=== PATIENT | female | born 1940 | race Caucasian/White ===

== ENCOUNTER 2019-02-06 09:10 | Emergency (ER) | payer MEDICARE, MEDICAID ==
[~2019-02-06] VITALS: Ht 157.5 cm; Wt 63.5 kg
[~2019-02-06 09:10] MED LIST: HYDR25TA4 PO; METO-387 PO
--- NOTE | 2019-02-06 09:15 | NUR ---
Due to pt condition, unable to perform NIH.
--- OUTSIDE RECORDS SUMMARY | 2019-02-06 09:18 | XMS REPORT ---
Author Author MAIKEL SALTER [facility] Address [address] [place], [place] [id number] Care Team Providers Care Information Systems Auditor Name Role Phone MAIKEL SALTER PCP MAIKEL SALTER PreferredProvider Allergies and Adverse Reactions Name Reaction Notes SULFA (SULFONAMIDES) nausea Plan of Treatment Planned Activity Comments Planned Date Planned Time Plan/Goal Lipid Profile 04/05/2016 12:00 AM Chest PA and Lateral - Main 03/24/2017 12:00 AM Lipid Profile 04/05/2018 12:00 AM Chest PA and Lateral - Main 09/04/2018 12:00 AM Sinuses Limited - Main 09/04/2018 12:00 AM Medications Active Name Start Date Estimated Completion Date SIG Comments Calcium 600 + D(3) 600 mg(1,500mg) -200 unit oral tablet take 2 tablets by oral route daily pravastatin 20 mg oral tablet take 1 tablet (20 mg) by oral route once daily Toprol XL 25 mg oral tablet extended release 24 hr take 1 tablet (25 mg) by oral route once daily albuterol sulfate 1.25 mg/3 mL inhalation solution for nebulization 03/31/2017 inhale 3 milliliters (1.25 mg) via nebulizer by inhalation route 4 times per day DX J44.9 ipratropium-albuterol 0.5 mg-3 mg(2.5 mg base)/3 mL inhalation solution for nebulization 09/19/2017 inhale 3 milliliters by nebulization route 4 times per day for COPD Lasix 40 mg oral tablet 04/08/2018 take 1 tablet (40 mg) by oral route once daily Sudogest 30 mg oral tablet 07/27/2018 take 1-2 tablets by oral route every 6 hours as needed lisinopril 10 mg oral tablet 10/03/2018 TAKE 1 TABLET BY MOUTH ONCE DAILY hydrochlorothiazide 25 mg oral tablet 12/05/2018 TAKE 1 TABLET DAILY metoprolol succinate 25 mg oral tablet extended release 24 hr 12/05/2018 TAKE 1 TABLET DAILY Cozaar 50 mg oral tablet 01/22/2019 take 1 tablet (50 mg) by oral route once daily Name Start Date Expiration Date SIG Comments Singulair 10 mg oral tablet 04/17/2010 08/15/2010 take 1 tablet (10 mg) by oral route daily for 60 days Zithromax Z-Travon 250 mg oral tablet 05/06/2011 05/11/2011 take 2 tablets (500 mg) by oral route once daily for 1 day then 1 tablet (250 mg) by oral route once daily for 4 days Medrol (Travon) 4 mg oral tablets,dose pack 08/10/2011 08/16/2011 take as directed for 6 days Keflex 500 mg oral capsule 10/14/2011 10/24/2011 take 1 capsule by oral route 3 times a day for 10 days Cipro 500 mg oral tablet 02/02/2012 02/17/2012 take 1 tablet (500 mg) by oral route every 12 hours for 15 days benzonatate 100 mg oral capsule 10/05/2012 10/05/2012 take 1 capsule (100 mg) by oral route 3 times per day for cough Medrol (Travon) 4 mg oral tablets,dose pack 12/13/2012 12/13/2012 take as directed Zyrtec 10 mg oral tablet 12/13/2012 04/12/2013 take 1 tablet (10 mg) by oral route once daily for 30 days Flonase 50 mcg/actuation nasal spray,suspension 12/13/2012 12/08/2013 inhale 1 spray in each nostril by intranasal route 2 times per day for 30 days cephalexin 500 mg oral capsule 12/13/2012 12/13/2012 take 1 capsule (500 mg) by oral route every 8 hours promethazine-codeine 6.25-10 mg/5 mL oral syrup 02/28/2013 take 5 milliliters by oral route every 4 hours as needed, not to exceed 30 mL in 24 hours Zithromax Z-Travon 250 mg oral tablet 05/16/2013 05/21/2013 take 2 tablets (500 mg) by oral route once daily for 1 day then 1 tablet (250 mg) by oral route once daily for 4 days amoxicillin 500 mg oral capsule 08/20/2013 09/04/2013 take 1 capsule by oral route 3 times a day for 15 days lovastatin 20 mg oral tablet 08/20/2013 08/15/2014 take 1 tablet (20 mg) by oral route daily for 30 days Zithromax Z-Travon 250 mg oral tablet 12/26/2013 12/31/2013 take 2 tablets (500 mg) by oral route once daily for 1 day then 1 tablet (250 mg) by oral route once daily for 4 days Medrol (Travon) 4 mg oral tablets,dose pack 12/26/2013 take as directed amoxicillin 500 mg oral capsule 03/07/2014 take 1 capsule (500 mg) by oral route 3 times per day Levaquin 500 mg oral tablet 05/30/2014 06/09/2014 take 1 tablet (500 mg) by oral route once daily for 10 days prednisone 20 mg oral tablet 05/30/2014 06/07/2014 4x2 days 3x2 days 2x2 days 1x2 days Zithromax Z-Travon 250 mg oral tablet 07/18/2014 07/23/2014 take 2 tablets (500 mg) by oral route once daily for 1 day then 1 tablet (250 mg) by oral route once daily for 4 days Bactrim DS 800-160 mg oral tablet 08/29/2014 09/08/2014 take 1 tablet by oral route every 12 hours for 10 days Zithromax Z-Travon 250 mg oral tablet 06/20/2015 06/25/2015 take 2 tablets (500 mg) by oral route once daily for 1 day then 1 tablet (250 mg) by oral route once daily for 4 days Keflex 500 mg oral capsule 04/28/2016 05/05/2016 take 1 capsule by oral route 3 times a day for 7 days amoxicillin 500 mg oral capsule 05/18/2016 05/28/2016 take 1 capsule by oral route 3 times a day for 10 days Tessalon Perles 100 mg oral capsule 05/18/2016 take 1 capsule by oral route every 4 hours Zithromax Z-Travon 250 mg oral tablet 06/24/2016 06/29/2016 take 2 tablets (500 mg) by oral route once daily for 1 day then 1 tablet (250 mg) by oral route once daily for 4 days amoxicillin 500 mg oral tablet 07/20/2016 take 1 tablet (500 mg) by oral route 3 times per day amoxicillin 500 mg oral capsule 12/16/2016 12/26/2016 take 1 capsule (500 mg) by oral route 3 times per day for 10 days Bactrim DS 800-160 mg oral tablet 01/21/2017 01/31/2017 take 1 tablet by oral route 2 times a day for 10 days Levaquin 500 mg oral tablet 04/11/2017 04/21/2017 take 1 tablet (500 mg) by oral route once daily for 10 days amoxicillin 500 mg oral capsule 05/04/2017 take 1 capsule (500 mg) by oral route every 12 hours for 7 days Zithromax Z-Travon 250 mg oral tablet 08/12/2017 take 2 tablets (500 mg) by oral route once daily for 1 day then 1 tablet (250 mg) by oral route once daily for 4 days amoxicillin 500 mg oral tablet 08/30/2017 take 1 tablet (500 mg) by oral route every 12 hours for 10 days Cipro 500 mg oral tablet 09/19/2017 09/29/2017 take 1 tablet (500 mg) by oral route 2 times per day for 10 days Zithromax Z-Travon 250 mg oral tablet 11/29/2017 12/04/2017 take 2 tablets (500 mg) by oral route once daily for 1 day then 1 tablet (250 mg) by oral route once daily for 4 days Keflex 500 mg oral capsule 02/03/2018 02/10/2018 take 1 capsule (500 mg) by oral route every 12 hours for 7 days prednisone 20 mg oral tablet 02/16/2018 02/28/2018 2X4 days 1X4 days 1/2X4 days Levaquin 500 mg oral tablet 07/11/2018 07/18/2018 take 1 tablet (500 mg) by oral route once daily for 7 days Medrol (Travon) 4 mg oral tablets,dose pack 12/22/2018 12/27/2018 take as directed for 5 days amoxicillin 500 mg oral capsule 01/12/2019 01/22/2019 take 1 capsule (500 mg) by oral route 3 times per day for 10 days Discontinued Name Start Date Discontinued Date SIG Comments amoxicillin 500 mg oral capsule 06/24/2011 05/17/2012 take 1 capsule (500 mg) by oral route 3 times per day Anusol-HC 25 mg rectal suppository 07/02/2011 05/17/2012 insert 1 suppository (25 mg) by rectal route 2 times per day Proctofoam 1 % topical foam 07/02/2011 12/29/2016 apply by external route daily Aerochamber 10/01/2013 12/29/2016 Use with inhaler as directed hydrochlorothiazide 25 mg oral tablet 08/29/2014 07/07/2015 TAKE 1 TABLET DAILY promethazine-codeine 6.25-10 mg/5 mL oral syrup 06/24/2016 06/08/2017 take 5 milliliters by oral route every 6 hours as needed, not to exceed 30 mL in 24 hours prednisone 20 mg oral tablet 12/28/2016 06/08/2017 4 x 2 days, 3 x 2 days, 2 x 2 days 1 x 2 days Augmentin 875-125 mg oral tablet 01/18/2017 01/23/2017 take 1 tablet by oral route every 12 hours for 7 days Keflex 500 mg oral capsule 02/24/2017 04/14/2017 take 1 capsule (500 mg) by oral route every 12 hours Keflex 500 mg oral capsule 05/24/2017 08/31/2017 take 1 capsule (500 mg) by oral route every 12 hours for 10 days Symbicort 160-4.5 mcg/actuation inhalation HFA aerosol inhaler 06/08/2017 05/20/2018 inhale 2 puffs by inhalation route 2 times per day in the morning and evening Levaquin 500 mg oral tablet 08/19/2017 08/31/2017 take 1 tablet (500 mg) by oral route once daily for 10 days Bactrim DS 800-160 mg oral tablet 01/31/2018 02/03/2018 take 1 tablet by oral route every 12 hours for 10 days nausea Tessalon Perles 100 mg oral capsule 02/16/2018 05/20/2018 take 1 capsule (100 mg) by oral route 3 times per day as needed for cough Sudogest 30 mg oral tablet 02/16/2018 05/20/2018 take 1 tablets (60 mg) by oral route every 6 hours as needed fluticasone 50 mcg/actuation nasal spray,suspension 05/16/2018 01/31/2019 inhale 1 spray (50 mcg) in each nostril by intranasal route 2 times per day doxycycline hyclate 100 mg oral capsule 10/17/2018 01/31/2019 take 1 capsule (100 mg) by oral route 2 times per day Problem List Description Status Onset Chronic Obstructive Pulmonary Disease Active Hyperlipidemia Active Anxiety disorder Active 06/12/2013 Pain in joint; Hip Active 01/22/2014 Pulmonary nodule seen on imaging study Active 06/12/2014 Exercise hypoxemia Active 06/12/2014 Anxiety about health Active 10/24/2015 Primary osteoarthritis involving multiple joints Active 12/29/2016 Medication management Active 12/29/2016 Cellulitis of left lower extremity Active 01/23/2017 Dog bite of calf, left, sequela Active 01/23/2017 Peripheral edema Active 04/10/2018 Vital Signs Date Time BP-Sys(mm[Hg] BP-Cee(mm[Hg]) HR(bpm) RR(rpm) Temp WT HT HC BMI BSA BMI Percentile O2 Sat(%) 01/23/2019 11:23:00 AM 132 mmHg 80 mmHg 80 bpm 18 rpm 98.2 F 143 lbs 63 in 25.3311 kg/m 1.698 m 98 % 01/16/2019 11:25:00 AM 118 mmHg 74 mmHg 82 bpm 18 rpm 98.4 F 139 lbs 62 in 25.42 kg/m2 1.66 m2 98 % 11/14/2018 3:13:00 PM 136 mmHg 86 mmHg 110 bpm 20 rpm 98.1 F 144 lbs 62 in 26.3377 kg/m 1.6904 m 88 % 08/22/2018 3:30:00 PM 108 mmHg 72 mmHg 82 bpm 18 rpm 98.1 F 142 lbs 62 in 25.97 kg/m2 1.68 m2 89 % 06/20/2018 9:30:00 AM 154 mmHg 100 mmHg 108 bpm 20 rpm 98.1 F 145 lbs 62 in 26.5206 kg/m 1.6962 m 91 % 05/18/2018 9:00:00 AM 114 mmHg 74 mmHg 76 bpm 18 rpm 98.4 F 145 lbs 61 in 27.40 kg/m2 1.68 m2 97 % 04/04/2018 10:07:00 AM 124 mmHg 82 mmHg 86 bpm 18 rpm 98.2 F 149 lbs 61 in 28.15 kg/m2 1.71 m2 92 % 01/31/2018 10:48:00 AM 118 mmHg 80 mmHg 82 bpm 18 rpm 98.3 F 144 lbs 61 in 27.2083 kg/m 1.6767 m 93 % 01/03/2018 2:35:00 PM 120 mmHg 82 mmHg 106 bpm 20 rpm 98.2 F 142 lbs 62 in 25.97 kg/m2 1.68 m2 92 % 11/29/2017 3:28:00 PM 122 mmHg 68 mmHg 114 bpm 18 rpm 98.2 F 142 lbs 90 % 09/19/2017 1:35:00 PM 112 mmHg 74 mmHg 114 bpm 18 rpm 99.6 F 139 lbs 63 in 24.6225 kg/m 1.6741 m 98 % 08/30/2017 3:57:00 PM 128 mmHg 80 mmHg 78 bpm 18 rpm 98.4 F 148 lbs 90 % 06/07/2017 1:51:00 PM 132 mmHg 80 mmHg 82 bpm 16 rpm 98.2 F 145 lbs 62 in 26.52 kg/m2 1.70 m2 95 % 04/11/2017 3:29:00 PM 128 mmHg 80 mmHg 68 bpm 16 rpm 98 F 144 lbs 63 in 25.5082 kg/m 1.7039 m 93 % 02/01/2017 11:37:00 AM 118 mmHg 72 mmHg 96 bpm 16 rpm 97.4 F 141 lbs 63 in 24.98 kg/m2 1.69 m2 91 % 01/21/2017 8:55:00 AM 105 mmHg 60 mmHg 96 bpm 18 rpm 95.8 F 142 lbs 63 in 25.1539 kg/m 1.6921 m 95 % 01/18/2017 12:10:00 PM 122 mmHg 68 mmHg 76 bpm 18 rpm 98 F 143 lbs 63 in 25.33 kg/m2 1.70 m2 98 % 12/28/2016 4:03:00 PM 118 mmHg 64 mmHg 106 bpm 18 rpm 97.4 F 137 lbs 63 in 24.2682 kg/m 1.662 m 98 % 07/26/2016 12:11:00 PM 120 mmHg 84 mmHg 110 bpm 16 rpm 98.1 F 130 lbs 63 in 23.03 kg/m2 1.62 m2 90 % 06/24/2016 3:57:00 PM 148 mmHg 72 mmHg 88 bpm 16 rpm 98.2 F 132 lbs 63 in 23.3825 kg/m 1.6314 m 98 % 10/23/2015 2:12:00 PM 122 mmHg 60 mmHg 106 bpm 18 rpm 97 F 137 lbs 63 in 24.27 kg/m2 1.66 m2 93 % 07/29/2015 2:33:00 PM 120 mmHg 75 mmHg 102 bpm 16 rpm 98.2 F 137 lbs 63 in 24.2682 kg/m 1.662 m 94 % 06/09/2015 2:46:00 PM 130 mmHg 80 mmHg 96 bpm 16 rpm 97.9 F 141 lbs 66 in 22.76 kg/m2 1.73 m2 98 % 05/20/2015 9:37:00 AM 140 mmHg 78 mmHg 110 bpm 16 rpm 97.9 F 141 lbs 63 in 24.9768 kg/m 1.6861 m 95 % 06/11/2014 2:25:00 PM 132 mmHg 66 mmHg 92 bpm 24 rpm 97.5 F 147 lbs 63 in 26.04 kg/m2 1.72 m2 92 % 05/30/2014 9:45:00 AM 132 mmHg 64 mmHg 74 bpm 24 rpm 97.7 F 146 lbs 63 in 25.8625 kg/m 1.7157 m 92 % 01/17/2014 2:31:00 PM 136 mmHg 68 mmHg 90 bpm 22 rpm 98.2 F 148 lbs 63 in 26.22 kg/m2 1.73 m2 95 % 10/01/2013 3:19:00 PM 124 mmHg 70 mmHg 64 bpm 20 rpm 97.8 F 147 lbs 63 in 26.0396 kg/m 1.7216 m 95 % 06/11/2013 10:31:00 AM 140 mmHg 70 mmHg 92 bpm 24 rpm 97.8 F 143 lbs 63 in 25.33 kg/m2 1.70 m2 95 % 02/05/2013 2:51:00 PM 130 mmHg 78 mmHg 90 bpm 98.2 F 168 lbs 65 in 27.9564 kg/m 1.8694 m 02/05/2013 2:43:00 PM 110 mmHg 76 mmHg 103 bpm 96.6 F 137 lbs 63 in 24.27 kg/m2 1.66 m2 01/18/2013 9:50:00 AM 150 mmHg 66 mmHg 108 bpm 20 rpm 97.8 F 138 lbs 63 in 24.4454 kg/m 1.6681 m 94 % 06/08/2012 9:08:00 AM 110 mmHg 60 mmHg 88 bpm 18 rpm 97.5 F 142 lbs 63 in 25.15 kg/m2 1.69 m2 94 % 05/17/2012 9:33:00 AM 130 mmHg 60 mmHg 98 bpm 18 rpm 146 lbs 63 in 25.8625 kg/m 1.7157 m 95 % 09/16/2011 2:31:00 PM 116 mmHg 76 mmHg 88 bpm 140 lbs 63 in 24.80 kg/m2 1.68 m2 96 % 07/02/2011 10:02:00 AM 122 mmHg 80 mmHg 110 bpm 144 lbs 94 % 05/06/2011 2:58:00 PM 124 mmHg 84 mmHg 106 bpm 155 lbs 63 in 27.4567 kg/m 1.7678 m 96 % 01/18/2011 9:55:00 AM 114 mmHg 78 mmHg 92 bpm 146 lbs 95 % 01/15/2011 8:36:00 AM 116 mmHg 74 mmHg 90 bpm 146 lbs 96 % 06/18/2010 3:01:00 PM 132 mmHg 84 mmHg 102 bpm 149 lbs 94 % 03/09/2010 11:46:00 AM 124 mmHg 78 mmHg 104 bpm 151 lbs 94 % 02/10/2010 8:47:00 AM 116 mmHg 78 mmHg 103 bpm 151 lbs 95 % Social History Name Description Comments Alcohol Never Uses seatbelts Tobacco Never smoker History of Procedures Date Ordered Description Order Status 05/06/2011 12:00 AM THER/PROPH/DIAG INJ SC/IM Reviewed 05/06/2011 12:00 AM Decadron Inj.1mg-([facility]) [facility] #[id number] Reviewed 05/06/2011 12:00 AM Depo-Medrol 80 Mg Im/[facility] [id number] Reviewed 05/06/2011 12:00 AM Rocephin, Per 250MG - 1 Gram Vial [facility] [id number]-[facility] Reviewed 10/29/2011 12:00 AM ROUTINE VENIPUNCTURE Reviewed 10/29/2011 12:00 AM COMPLETE CBC W/AUTO DIFF WBC Reviewed 10/29/2011 12:00 AM COMPREHEN METABOLIC PANEL Reviewed 10/29/2011 12:00 AM ASSAY THYROID STIM HORMONE Reviewed 06/24/2016 12:00 AM Decadron, Per 1 Mg [facility]# [address]-35 Reviewed 06/24/2016 12:00 AM Depo-Medrol, Per 80 Mg [facility]#4803-0661-03 Reviewed 06/24/2016 12:00 AM Rocephin 1 gram [facility]#1840-6998-01 Reviewed 07/26/2016 12:00 AM THER/PROPH/DIAG INJ SC/IM Reviewed 07/26/2016 12:00 AM Decadron 8mg Injection, [facility] Medicare Reviewed 07/26/2016 12:00 AM Depo-Medrol 80mg Injection, [facility] Medicare Reviewed 07/26/2016 12:00 AM Rocephin 1 gram Injection, [facility] Medicare Reviewed 12/16/2016 12:00 AM COMPLETE CBC W/AUTO DIFF WBC Reviewed 12/16/2016 12:00 AM COMPREHEN METABOLIC PANEL Reviewed 12/16/2016 12:00 AM LIPID PANEL Reviewed 12/28/2016 12:00 AM THERAPEUTIC PROPHYLACTIC/DX INJECTION SUBQ/IM Reviewed 12/28/2016 12:00 AM Decadron 8mg Injection, [facility] Medicare Reviewed 12/28/2016 12:00 AM Depo-Medrol 80mg Injection, [facility] Medicare Reviewed 04/12/2017 12:00 AM LIPID PANEL Returned 04/11/2017 12:00 AM THERAPEUTIC PROPHYLACTIC/DX INJECTION SUBQ/IM Reviewed 04/11/2017 12:00 AM Decadron 8mg Injection, [facility] Reviewed 04/11/2017 12:00 AM Depo-Medrol 80mg Injection, [facility] Reviewed 05/17/2012 12:00 AM THER/PROPH/DIAG INJ SC/IM Reviewed 05/17/2012 12:00 AM Decadron, Per 1 Mg [facility]# [address]-50 Reviewed 05/17/2012 12:00 AM Depo-Medrol, Per 80 Mg [facility]#9213-4615-26 Reviewed 05/17/2012 12:00 AM Toradol 60 Mg [facility]#3111-6597-72 Reviewed 06/07/2017 12:00 AM THERAPEUTIC PROPHYLACTIC/DX INJECTION SUBQ/IM Reviewed 06/07/2017 12:00 AM Decadron 8mg Injection, [facility] Reviewed 06/07/2017 12:00 AM Depo-Medrol 80mg Injection, [facility] Medicare Reviewed 08/30/2017 12:00 AM THERAPEUTIC PROPHYLACTIC/DX INJECTION SUBQ/IM Reviewed 08/30/2017 12:00 AM Rocephin 1 gram Injection, [facility] Reviewed 09/19/2017 12:00 AM THERAPEUTIC PROPHYLACTIC/DX INJECTION SUBQ/IM Reviewed 09/19/2017 12:00 AM Decadron 8mg Injection, [facility] Reviewed 09/19/2017 12:00 AM Depo-Medrol 80mg Injection, [facility] Reviewed 09/19/2017 12:00 AM Rocephin 1 gram Injection, [facility] Medicare Reviewed 04/05/2018 12:00 AM COMPLETE CBC W/AUTO DIFF WBC Returned 04/05/2018 12:00 AM COMPREHEN METABOLIC PANEL Returned 04/05/2018 12:00 AM ELECTROCARDIOGRAM TRACING Reviewed 01/18/2013 12:00 AM THER/PROPH/DIAG INJ SC/IM Reviewed 01/18/2013 12:00 AM Decadron, Per 1 Mg [facility]# [address]-06 Reviewed 01/18/2013 12:00 AM Depo-Medrol, Per 80 Mg [facility]#8111-2682-51 Reviewed 01/18/2013 12:00 AM Toradol 60 Mg [facility]#5958-0157-80 Reviewed 08/22/2018 12:00 AM THERAPEUTIC PROPHYLACTIC/DX INJECTION SUBQ/IM Reviewed 08/22/2018 12:00 AM Decadron 8mg Injection, [facility] Reviewed 08/22/2018 12:00 AM Depo-Medrol 80mg Injection, [facility] Medicare Reviewed 11/14/2018 12:00 AM THERAPEUTIC PROPHYLACTIC/DX INJECTION SUBQ/IM Reviewed 11/14/2018 12:00 AM Decadron 8mg Injection, [facility] Medicare Reviewed 11/14/2018 12:00 AM Rocephin 1 gram Injection, [facility] Medicare Reviewed 01/30/2019 12:00 AM LIPID PANEL Returned 01/23/2019 12:00 AM THERAPEUTIC PROPHYLACTIC/DX INJECTION SUBQ/IM Reviewed 01/23/2019 12:00 AM Decadron 8mg Injection, [facility] Medicare Reviewed 02/10/2010 12:00 AM ROUTINE VENIPUNCTURE Reviewed 02/10/2010 12:00 AM COMPLETE CBC W/AUTO DIFF WBC Reviewed 02/10/2010 12:00 AM COMPREHEN METABOLIC PANEL Reviewed 02/10/2010 12:00 AM LIPID PANEL Reviewed 06/11/2014 12:00 AM CHEST X-RAY 4/> VIEWS Reviewed 01/15/2011 12:00 AM ROUTINE VENIPUNCTURE Reviewed 01/15/2011 12:00 AM COMPLETE CBC AUTOMATED Reviewed 01/15/2011 12:00 AM COMPREHEN METABOLIC PANEL Reviewed 01/15/2011 12:00 AM LIPID PANEL Reviewed 01/18/2011 12:00 AM THER/PROPH/DIAG INJ SC/IM Reviewed 01/18/2011 12:00 AM Decadron Inj.8mg-([facility]) [facility] #[id number] Reviewed 01/18/2011 12:00 AM Depo-Medrol 80 Mg Im/[facility] [id number] Reviewed Results Summary Date and Description Results 01/15/2011 1:53 PM TRIGLYCERIDES 155.0 mg/dLCHOLESTEROL 248.0 mg/dLHDL 51.0 mg/dLTOT CHOL/HDL 4.9 LDL 168.0 mg/dLGLUCOSE 97.0 mg/dLSODIUM 139.0 mmol/LPOTASSIUM 3.70 mmol/LCHLORIDE 101.0 mmol/LCO2 27.0 mmol/LBUN 19.0 mg/dLCREATININE 0.90 mg/dLSGOT/AST 19.0 IU/LSGPT/ALT 11.0 IU/LALK PHOS 111.0 IU/LTOTAL PROTEIN 7.40 g/dLALBUMIN 4.20 g/dLTOTAL BILI 0.50 mg/dLCALCIUM 9.50 mg/dLAGE 70 GFR NonAA 62 GFR AA 75 eGFR >60 mL/min/1.73 m2eGFR AA* >60 History Of Immunizations Not available. History of Past Illness Name Date of Onset Comments Chronic Obstructive Pulmonary Disease Hyperlipidemia Cough Feb 10 2010 8:49AM General Medical Exam, Adult Feb 10 2010 8:49AM Seasonal Allergies Feb 10 2010 8:49AM Sinusitis, Chronic Feb 10 2010 8:49AM Ganglion cyst of synovium, tendon, and bursa; other Mar 09 2010 11:48AM Anxiety disorder 06/12/2013 Pain in joint; Hip 01/22/2014 Pulmonary nodule seen on imaging study 06/12/2014 Exercise hypoxemia 06/12/2014 Chronic Obstructive Pulmonary Disease Jun 18 2010 3:02PM Edema Jun 18 2010 3:02PM Sinusitis, Acute Jun 18 2010 3:02PM Anxiety about health 10/24/2015 Chronic Obstructive Pulmonary Disease Jan 15 2011 8:38AM Palpitations Jan 15 2011 8:38AM Cough Jan 18 2011 9:54AM Sinusitis, Acute Jan 18 2011 9:54AM Seasonal Allergies Jan 18 2011 9:54AM Post-nasal drainage Jan 18 2011 9:54AM Primary osteoarthritis involving multiple joints 12/29/2016 Medication management 12/29/2016 Cellulitis of left lower extremity 01/23/2017 Dog bite of calf, left, sequela 01/23/2017 Cough May 06 2011 2:55PM Seasonal Allergies May 06 2011 2:55PM Pharyngitis, Acute May 06 2011 2:55PM Post-nasal drainage May 06 2011 2:55PM Peripheral edema 04/10/2018 Blood In Stool, Occult Jul 02 2011 9:58AM Hemorrhoids Jul 02 2011 9:58AM Chronic Obstructive Pulmonary Disease Fe2011 2:33PM Cardiac Dysrhythmia Sep 16 2011 2:33PM Sinoatrial Node Dysfunction Oct 29 2011 9:12AM Palpitations Oct 29 2011 9:12AM Osteoarthrosis, generalized, multiple sites May 17 2012 9:34AM Pain in joint; Hip May 17 2012 9:34AM Osteoarthrosis Jun 08 2012 9:09AM Bronchitis, Acute Jun 08 2012 9:09AM Cough Jun 08 2012 9:09AM Pain in joint; Left Hip Jun 08 2012 9:09AM Pain in joint; Hip Jan 18 2013 9:50AM Osteoarthrosis, generalized, multiple sites Feb 05 2013 2:45PM Pain in joint; Hip bilateral Feb 05 2013 2:45PM Anxiety Disorder Jun 11 2013 10:32AM Chronic Obstructive Pulmonary Disease Jun 11 2013 10:32AM Hyperlipidemia Jun 11 2013 10:32AM Pain in joint; Left Hip Jun 11 2013 10:32AM Sinusitis, Acute Jun 11 2013 10:32AM Essential Hypertension Oct 01 2013 3:19PM Osteoarthrosis, generalized, multiple sites Oct 01 2013 3:19PM Chronic Obstructive Pulmonary Disease Oct 01 2013 3:19PM Pain in joint; Hip Oct 01 2013 3:19PM Chronic Obstructive Pulmonary Disease Jan 17 2014 2:31PM Pain in joint; Hip Jan 17 2014 2:31PM pre-operative examination, unspecified Jan 17 2014 2:31PM Lung nodule seen on imaging study Jun 11 2014 10:24AM Bronchitis, Acute May 30 2014 9:45AM Respiratory System And Chest Symptoms May 30 2014 9:45AM COPD (chronic obstructive pulmonary disease) May 30 2014 9:45AM Chronic Obstructive Pulmonary Disease Jun 11 2014 2:26PM Pulmonary nodule seen on imaging study Jun 11 2014 2:26PM Shortness of breath Jun 11 2014 2:26PM Exercise hypoxemia Jun 11 2014 2:26PM Nail avulsion May 20 2015 9:38AM Contusion of left index finger with damage to nail, initial encounter Jun 09 2015 2:53PM Forehead contusion, subsequent encounter Jul 29 2015 2:39PM Generalized anxiety disorder Jul 29 2015 2:39PM Chronic Obstructive Pulmonary Disease Jul 29 2015 2:39PM Osteoarthrosis, generalized, multiple sites Oct 23 2015 2:12PM Pain of right thigh Oct 23 2015 2:12PM Mild Acute Hip pain, acute, right Improving Oct 23 2015 2:12PM Anxiety about health Oct 23 2015 2:12PM Hyperlipidemia Apr 05 2016 10:58AM Sinoatrial Node Dysfunction Apr 05 2016 10:58AM Palpitations Apr 05 2016 10:58AM Chronic Obstructive Pulmonary Disease Apr 05 2016 10:58AM Exercise hypoxemia Apr 05 2016 10:58AM Pain in joint; Hip Apr 05 2016 10:58AM Pulmonary nodule seen on imaging study Apr 05 2016 10:58AM Eustachian tube dysfunction, bilateral Jun 24 2016 3:57PM Moderate Acute Cough Jun 24 2016 3:57PM Pharyngitis, Acute Jun 24 2016 3:57PM Upper Respiratory Infection Jun 24 2016 3:57PM COPD (chronic obstructive pulmonary disease) with acute bronchitis Jun 24 2016 3:57PM Mild Chronic Cough Worsening Jul 26 2016 12:12PM Recurrent COPD (chronic obstructive pulmonary disease) with acute bronchitis Jul 26 2016 12:12PM Moderate Shortness of breath on exertion Jul 26 2016 12:12PM Hyperlipidemia Dec 16 2016 10:27AM Sinoatrial Node Dysfunction Dec 16 2016 10:27AM Palpitations Dec 16 2016 10:27AM Chronic Obstructive Pulmonary Disease Dec 16 2016 10:27AM Exercise hypoxemia Dec 16 2016 10:27AM Pain in joint; Hip Dec 16 2016 10:27AM Pulmonary nodule seen on imaging study Dec 16 2016 10:27AM Chest congestion Dec 28 2016 4:04PM COPD (chronic obstructive pulmonary disease) with acute bronchitis Dec 28 2016 4:04PM Productive cough Dec 28 2016 4:04PM Anxiety about health Dec 28 2016 4:04PM Chronic obstructive pulmonary disease, unspecified COPD type Dec 28 2016 4:04PM Exercise hypoxemia Dec 28 2016 4:04PM Mixed hyperlipidemia Dec 28 2016 4:04PM Medication management Dec 28 2016 4:04PM Primary osteoarthritis involving multiple joints Dec 28 2016 4:04PM Cellulitis of left lower extremity Jan 18 2017 12:10PM Bitten by dog, initial encounter Jan 18 2017 12:10PM Cellulitis of left lower extremity Jan 21 2017 8:56AM Open bite, left lower leg, sequela Jan 21 2017 8:56AM Bitten by dog, sequela Jan 21 2017 8:56AM Medication management Jan 21 2017 8:56AM Cellulitis of left lower extremity Feb 01 2017 11:38AM Open bite, left lower leg, subsequent encounter Feb 01 2017 11:38AM Bitten by dog, subsequent encounter Feb 01 2017 11:38AM Medication management Feb 01 2017 11:38AM Cough Mar 24 2017 4:09PM Abnormal chest xray Mar 24 2017 4:09PM Hyperlipidemia Apr 12 2017 9:02AM Sinoatrial Node Dysfunction Apr 12 2017 9:02AM Palpitations Apr 12 2017 9:02AM Chronic Obstructive Pulmonary Disease Apr 12 2017 9:02AM Exercise hypoxemia Apr 12 2017 9:02AM Pain in joint; Hip Apr 12 2017 9:02AM Pulmonary nodule seen on imaging study Apr 12 2017 9:02AM Eustachian tube dysfunction, bilateral Apr 11 2017 3:30PM Purulent postnasal drainage Apr 11 2017 3:30PM Chest congestion Apr 11 2017 3:30PM Upper respiratory tract infection, unspecified type Apr 11 2017 3:30PM Moderate Acute Sinus pressure Apr 11 2017 3:30PM COPD (chronic obstructive pulmonary disease) with acute bronchitis Apr 11 2017 3:30PM Moderate Chronic Purulent postnasal drainage Jun 07 2017 1:52PM Mild Chronic Sinus pressure Jun 07 2017 1:52PM Moderate Chronic Acute seasonal allergic rhinitis, unspecified trigger Stable Jun 07 2017 1:52PM Mild Acute Labyrinthitis Jun 07 2017 1:52PM Moderate Acute Vertigo Jun 07 2017 1:52PM Purulent postnasal drainage Aug 30 2017 3:58PM Upper respiratory tract infection, unspecified type Aug 30 2017 3:58PM Mild Acute Left Enlarged lymph node in neck Aug 30 2017 3:58PM Cough Sep 19 2017 1:36PM Moderate Acute Recurrent Chest congestion Sep 19 2017 1:36PM COPD exacerbation Sep 19 2017 1:36PM Chronic obstructive pulmonary disease with acute lower respiratory infection Sep 19 2017 1:36PM Acute bronchitis, unspecified Sep 19 2017 1:36PM Cough Nov 29 2017 3:29PM Acute pharyngitis, unspecified etiology Nov 29 2017 3:29PM Chest congestion Nov 29 2017 3:29PM COPD (chronic obstructive pulmonary disease) Nov 29 2017 3:29PM Cellulitis of left lower extremity Jan 03 2018 2:35PM Cellulitis of left lower extremity Jan 31 2018 10:48AM Peripheral edema Jan 31 2018 10:48AM Hyperlipidemia Apr 05 2018 10:03AM Sinoatrial Node Dysfunction Apr 05 2018 10:03AM Palpitations Apr 05 2018 10:03AM Chronic Obstructive Pulmonary Disease Apr 05 2018 10:03AM Exercise hypoxemia Apr 05 2018 10:03AM Pain in joint; Hip Apr 05 2018 10:03AM Pulmonary nodule seen on imaging study Apr 05 2018 10:03AM Exercise Counseling Apr 04 2018 10:08AM Moderate Acute Bilateral Peripheral edema Apr 04 2018 10:08AM Chronic obstructive pulmonary disease, unspecified COPD type Apr 04 2018 10:08AM Medication management Apr 04 2018 10:08AM Acute nasopharyngitis (common cold) May 18 2018 9:03AM Purulent postnasal drainage May 18 2018 9:03AM Ear pain, right May 18 2018 9:03AM Essential hypertension Jun 20 2018 9:31AM Ear pain, bilateral Jun 20 2018 9:31AM Purulent postnasal drainage Aug 22 2018 3:35PM Chest congestion Aug 22 2018 3:35PM Upper respiratory tract infection, unspecified type Aug 22 2018 3:35PM Sinus pressure Aug 22 2018 3:35PM Chronic obstructive pulmonary disease with acute lower respiratory infection Aug 22 2018 3:35PM Acute bronchitis, unspecified Aug 22 2018 3:35PM Cough Sep 04 2018 4:44PM Sinus pressure Sep 04 2018 4:44PM Chest congestion Nov 14 2018 3:15PM Upper respiratory tract infection, unspecified type Nov 14 2018 3:15PM COPD exacerbation Nov 14 2018 3:15PM Essential hypertension Jan 16 2019 11:26AM COPD exacerbation Jan 16 2019 11:26AM Medication management Jan 16 2019 11:26AM Hyperlipidemia Jan 30 2019 8:55AM Sinoatrial Node Dysfunction Jan 30 2019 8:55AM Palpitations Jan 30 2019 8:55AM Chronic Obstructive Pulmonary Disease Jan 30 2019 8:55AM Exercise hypoxemia Jan 30 2019 8:55AM Pain in joint; Hip Jan 30 2019 8:55AM Pulmonary nodule seen on imaging study Jan 30 2019 8:55AM Dizziness on standing Jan 16 2019 11:26AM Dysfunction of both eustachian tubes Jan 23 2019 11:24AM Nasal congestion with rhinorrhea Jan 23 2019 11:24AM Purulent postnasal drainage Jan 23 2019 11:24AM Payers Insurance Name Company Name Plan Name Plan Number Policy Number Policy Group Number Start Date Medicare [facility] Medicare [facility] [id number] N/A [place] Prog [id number] N/A zzzTest Medicare A Test Medicare A [id number] N/A [facility] Comm [id number] N/A Medicare Part A Medicare - Lab/Xray [id number] N/A [facility] Asst Prog - R[facility] [place] [employer] Pro[place] - C [id number] N/A Medicare Part A Medicare Part A [id number] N/A Medicare Part B Medicare Of [place] [id number] N/A History of Encounters Visit Date Visit Type Provider 01/30/2019 Laboratory MAIKEL SALTER PA 01/23/2019 Office visit MAIKEL SALTER PA 01/16/2019 Office visit MAIKEL SALTER PA 11/14/2018 Office visit MAIKEL SALTER PA 08/22/2018 Office visit MAIKEL SALTER PA 06/20/2018 Office visit MAIKEL SALTER PA 05/16/2018 Office visit MAIKEL SALTER PA 04/04/2018 Office visit MAIKEL SALTER PA 01/31/2018 Office visit MAIKEL SALTER PA 01/03/2018 Office visit MAIKEL SALTER PA 11/29/2017 Office visit MAIKEL SALTER PA 09/19/2017 Office visit MAIKEL SALTER PA 08/30/2017 Office visit MAIKEL SALTER PA 06/07/2017 Office visit MAIKEL SALTER PA 04/12/2017 Voided MAIKEL SALTER PA 04/11/2017 Office visit MAIKEL SALTER PA 02/01/2017 Office visit MAIKEL SALTER PA 01/21/2017 Office visit MAIKEL SALTER PA 01/18/2017 Office visit MAIKEL SALTER PA 12/28/2016 Office visit MAIKEL SALTER PA 07/26/2016 Office visit MAIKEL SALTER PA 06/24/2016 Office visit MAIKEL SALTER PA 10/23/2015 Office visit MAIKEL SALTER PA 07/29/2015 Office visit MAIKEL SALTER PA 06/09/2015 Office visit MAIKEL SALTER PA 05/20/2015 Office visit MAIKEL SALTER PA 06/11/2014 Office visit MAIKEL SALTER PA 05/30/2014 Office visit MAIKEL SALTER PA 01/17/2014 Office visit MAIKEL SALTER PA 12/03/2013 Fernando Seth MD 10/01/2013 Office visit MAIKEL SALTER PA 06/11/2013 Office visit MAIKEL SALTER PA 05/28/2013 [facility] Melissa Seth MD 02/05/2013 Office visit MAIKEL SALTER PA 01/18/2013 Office visit MAIKEL SALTER PA 06/08/2012 Office visit MAIKEL SALTER PA 05/17/2012 Office visit MAIKEL ASLTER PA 10/29/2011 Office visit MAIKEL SALTER PA 09/16/2011 Office visit MAIKEL SALTER PA 09/16/2011 [facility] Melissa Seth MD 07/02/2011 Office visit MAIKEL SALTER PA 05/06/2011 Office visit Maikel Salter PA-C 01/18/2011 Office visit Maikel Salter PA-C 01/15/2011 Office visit Maikel Salter PA-C 06/18/2010 Office visit Maikel Salter PA-C 03/09/2010 Office visit Maikel Salter PA-C 02/10/2010 Office visit Maikel Salter PA-C
--- OUTSIDE RECORDS SUMMARY | 2019-02-06 09:19 | XMS REPORT ---
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 Phone MAIKEL SALTER PCP MAIKEL [...] SC/IM Reviewed 05/06/2011 12:00 AM Decadron Inj.1mg-([facility]) [facility] #[id number] Reviewed 05/06/2011 12:00 AM Depo-Medrol 80 Mg Im/[facility] [id number] Reviewed 05/06/2011 12:00 AM Rocephin, Per 250MG - 1 Gram Vial [facility] [id number]-[facility] Reviewed 10/29/2011 12:00 AM ROUTINE VENIPUNCTURE Reviewed 10/29/2011 12:00 AM COMPLETE CBC W/AUTO DIFF WBC Reviewed 10/29/2011 12:00 AM COMPREHEN METABOLIC PANEL Reviewed 10/29/2011 12:00 AM ASSAY THYROID STIM HORMONE Reviewed 06/24/2016 12:00 AM Decadron, Per 1 Mg [facility]# [address]-08 Reviewed 06/24/2016 12:00 AM Depo-Medrol, Per 80 Mg [facility]#1668-5077-15 Reviewed 06/24/2016 12:00 AM Rocephin 1 gram [facility]#2747-1005-28 Reviewed 07/26/2016 12:00 AM THER/PROPH/DIAG INJ SC/IM Reviewed 07/26/2016 12:00 AM Decadron 8mg Injection, [facility] Medicare Reviewed 07/26/2016 12:00 AM Depo-Medrol 80mg Injection, [facility] Medicare Reviewed 07/26/2016 12:00 AM Rocephin 1 gram Injection, [facility] Medicare Reviewed 12/16/2016 12:00 AM COMPLETE CBC W/AUTO DIFF WBC Reviewed 12/16/2016 12:00 AM COMPREHEN METABOLIC PANEL Reviewed 12/16/2016 12:00 AM LIPID PANEL Reviewed 12/28/2016 12:00 AM THERAPEUTIC PROPHYLACTIC/DX INJECTION SUBQ/IM Reviewed 12/28/2016 12:00 AM Decadron 8mg Injection, [facility] Medicare Reviewed 12/28/2016 12:00 AM Depo-Medrol 80mg Injection, [facility] Medicare Reviewed 04/12/2017 12:00 AM LIPID PANEL Returned 04/11/2017 12:00 AM THERAPEUTIC PROPHYLACTIC/DX INJECTION SUBQ/IM Reviewed 04/11/2017 12:00 AM Decadron 8mg Injection, [facility] Medicare Reviewed 04/11/2017 12:00 AM Depo-Medrol 80mg Injection, [facility] Medicare Reviewed 05/17/2012 12:00 AM THER/PROPH/DIAG INJ SC/IM Reviewed 05/17/2012 12:00 AM Decadron, Per 1 Mg [facility]# [address]-75 Reviewed 05/17/2012 12:00 AM Depo-Medrol, Per 80 Mg [facility]#3899-6501-18 Reviewed 05/17/2012 12:00 AM Toradol 60 Mg [facility]#5468-3608-09 Reviewed 06/07/2017 12:00 AM THERAPEUTIC PROPHYLACTIC/DX INJECTION SUBQ/IM Reviewed 06/07/2017 12:00 AM Decadron 8mg Injection, [facility] Medicare Reviewed 06/07/2017 12:00 AM Depo-Medrol 80mg Injection, [facility] Medicare Reviewed 08/30/2017 12:00 AM THERAPEUTIC PROPHYLACTIC/DX INJECTION SUBQ/IM Reviewed 08/30/2017 12:00 AM Rocephin 1 gram Injection, [facility] Medicare Reviewed 09/19/2017 12:00 AM THERAPEUTIC PROPHYLACTIC/DX INJECTION SUBQ/IM Reviewed 09/19/2017 12:00 AM Decadron 8mg Injection, [facility] Medicare Reviewed 09/19/2017 12:00 AM Depo-Medrol 80mg Injection, [facility] Medicare Reviewed 09/19/2017 12:00 AM Rocephin 1 gram Injection, [facility] Medicare Reviewed 04/05/2018 12:00 AM COMPLETE CBC W/AUTO DIFF WBC Returned 04/05/2018 12:00 AM COMPREHEN METABOLIC PANEL Returned 04/05/2018 12:00 AM ELECTROCARDIOGRAM TRACING Reviewed 01/18/2013 12:00 AM THER/PROPH/DIAG INJ SC/IM Reviewed 01/18/2013 12:00 AM Decadron, Per 1 Mg [facility]# [address]-29 Reviewed 01/18/2013 12:00 AM Depo-Medrol, Per 80 Mg [facility]#2621-3262-35 Reviewed 01/18/2013 12:00 AM Toradol 60 Mg [facility]#6328-7537-64 Reviewed 08/22/2018 12:00 AM THERAPEUTIC PROPHYLACTIC/DX INJECTION SUBQ/IM Reviewed 08/22/2018 12:00 AM Decadron 8mg Injection, [facility] Medicare Reviewed 08/22/2018 12:00 AM Depo-Medrol 80mg Injection, [facility] Medicare Reviewed 11/14/2018 12:00 AM THERAPEUTIC PROPHYLACTIC/DX INJECTION SUBQ/IM Reviewed 11/14/2018 12:00 AM Decadron 8mg Injection, [facility] Medicare Reviewed 11/14/2018 12:00 AM Rocephin 1 gram Injection, [facility] Medicare Reviewed 01/23/2019 12:00 AM THERAPEUTIC PROPHYLACTIC/DX INJECTION SUBQ/IM Reviewed 01/23/2019 12:00 AM Decadron 8mg Injection, [facility] Medicare Reviewed 01/30/2019 12:00 AM LIPID PANEL Returned 02/10/2010 12:00 AM ROUTINE VENIPUNCTURE Reviewed 02/10/2010 [...] INJ SC/IM Reviewed 01/18/2011 12:00 AM Decadron Inj.8mg-([facility]) [facility] #[id number] Reviewed 01/18/2011 12:00 AM Depo-Medrol 80 Mg Im/[facility] [id number] Reviewed Results Summary Date and Description Results [...] Dizziness on standing Jan 16 2019 11:26AM Payers Insurance Name Company Name Plan Name Plan Number Policy Number Policy Group Number Start Date Medicare RHC Medicare RHC [id number] N/A [place] Prog [id number] N/A zzzTest Medicare A Test Medicare A [id number] N/A [facility] Comm [id number] N/A Medicare Part A Medicare - Lab/Xray [id number] N/A [place] [facility]ight[facility] [id number] N/A Medicare Part A Medicare Part A [id number] N/A Medicare Part B Medicare Of [place] [id number] N/A History of Encounters Visit Date Visit Type Provider 01/30/2019 Laboratory MAIKEL HASSAN 01/23/2019 Office visit MAIKEL SALTER PA 01/16/2019 [...] MAIKEL SALTER PA 01/18/2017 Office visit MAIKEL SATLER PA 12/28/2016 Office visit MAIKEL SALTER PA 07/26/2016 Office visit MAIKEL SALTER PA 06/24/2016 Office visit MAIKEL SALTER PA 10/23/2015 Office visit MAIKEL SALTER PA 07/29/2015 Office visit MAIKEL SALTER PA 06/09/2015 Office visit MAIKEL SALTER PA 05/20/2015 Office visit MAIKEL SALTER PA 06/11/2014 Office visit MAIKEL SALTER PA 05/30/2014 Office visit MAIKEL SALTER PA 01/17/2014 Office visit MAIKEL SALTER PA 12/03/2013 [facility] Melissa Seth MD 10/01/2013 Office visit MAIKEL SALTER PA 06/11/2013 Office visit MAIKEL SALTER PA 05/28/2013 [facility] Melissa Seth MD 02/05/2013 Office visit MAIKEL SALTER PA 01/18/2013 Office visit MAIKEL SALTER PA 06/08/2012 Office visit MAIKEL SALTER PA 05/17/2012 Office visit MAIKEL SALTER PA 10/29/2011 Office visit MAIKEL SALTER PA 09/16/2011 Office visit MAIKEL SALTER PA 09/16/2011 [facility] Melissa Seth MD 07/02/2011 Office visit MAIKEL SALTER PA 05/06/2011 Office visit Maikel Salter PA-C 01/18/2011 Office visit Maikel Salter PA-C 01/15/2011 Office visit Maikel Salter PA-C 06/18/2010 Office visit Maikel Salter PA-C 03/09/2010 Office visit Maikel Salter PA-C 02/10/2010 Office visit Maikel Salter PA-C
--- OUTSIDE RECORDS SUMMARY | 2019-02-06 09:21 | XMS REPORT ---
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 Role Phone MAIKEL SALTER PCP MAIKEL [...] Sinuses Limited - Main 09/04/2018 12:00 AM Lipid Profile 01/30/2019 12:00 AM Medications Active Name Start Date [...] (40 mg) by oral route once daily fluticasone 50 mcg/actuation nasal spray,suspension 05/16/2018 inhale 1 spray (50 mcg) in each nostril by intranasal route 2 times per day Sudogest 30 mg oral tablet 07/27/2018 take 1-2 tablets by oral route every 6 hours as needed lisinopril 10 mg oral tablet 10/03/2018 TAKE 1 TABLET BY MOUTH ONCE DAILY doxycycline hyclate 100 mg oral capsule 10/17/2018 take 1 capsule (100 mg) by oral route 2 times per day hydrochlorothiazide 25 mg oral tablet 12/05/2018 TAKE [...] oral route every 6 hours as needed Problem List Description Status Onset Chronic Obstructive [...] SC/IM Reviewed 05/06/2011 12:00 AM Decadron Inj.1mg-([facility]) [facility] #[id number] Reviewed 05/06/2011 12:00 AM Depo-Medrol 80 Mg Im/[facility] [id number] Reviewed 05/06/2011 12:00 AM Rocephin, Per 250MG - 1 Gram Vial [facility] [id number]-[facility] Reviewed 10/29/2011 12:00 AM ROUTINE VENIPUNCTURE Reviewed 10/29/2011 12:00 AM COMPLETE CBC W/AUTO DIFF WBC Reviewed 10/29/2011 12:00 AM COMPREHEN METABOLIC PANEL Reviewed 10/29/2011 12:00 AM ASSAY THYROID STIM HORMONE Reviewed 06/24/2016 12:00 AM Decadron, Per 1 Mg [facility]# [address]-39 Reviewed 06/24/2016 12:00 AM Depo-Medrol, Per 80 Mg [facility]#9653-6397-79 Reviewed 06/24/2016 12:00 AM Rocephin 1 gram [facility]#[id number] Reviewed 07/26/2016 12:00 AM THER/PROPH/DIAG INJ SC/IM Reviewed 07/26/2016 12:00 AM Decadron 8mg Injection, [facility] Medicare Reviewed 07/26/2016 12:00 AM Depo-Medrol 80mg Injection, [facility] Medicare Reviewed 07/26/2016 12:00 AM Rocephin 1 gram Injection, [facility] Medicare Reviewed 12/16/2016 12:00 AM COMPLETE CBC W/AUTO DIFF WBC Reviewed 12/16/2016 12:00 AM COMPREHEN METABOLIC PANEL Reviewed 12/16/2016 12:00 AM LIPID PANEL Reviewed 12/28/2016 12:00 AM THERAPEUTIC PROPHYLACTIC/DX INJECTION SUBQ/IM Reviewed 12/28/2016 12:00 AM Decadron 8mg Injection, [facility] Medicare Reviewed 12/28/2016 12:00 AM Depo-Medrol 80mg Injection, [facility] Medicare Reviewed 04/12/2017 12:00 AM LIPID PANEL Returned 04/11/2017 12:00 AM THERAPEUTIC PROPHYLACTIC/DX INJECTION SUBQ/IM Reviewed 04/11/2017 12:00 AM Decadron 8mg Injection, [facility] Medicare Reviewed 04/11/2017 12:00 AM Depo-Medrol 80mg Injection, [facility] Medicare Reviewed 05/17/2012 12:00 AM THER/PROPH/DIAG INJ SC/IM Reviewed 05/17/2012 12:00 AM Decadron, Per 1 Mg [facility]# [id number] Reviewed 05/17/2012 12:00 AM Depo-Medrol, Per 80 Mg [facility]#[id number] Reviewed 05/17/2012 12:00 AM Toradol 60 Mg [facility]#[id number] Reviewed 06/07/2017 12:00 AM THERAPEUTIC PROPHYLACTIC/DX INJECTION SUBQ/IM Reviewed 06/07/2017 12:00 AM Decadron 8mg Injection, [facility] Medicare Reviewed 06/07/2017 12:00 AM Depo-Medrol 80mg Injection, [facility] Medicare Reviewed 08/30/2017 12:00 AM THERAPEUTIC PROPHYLACTIC/DX INJECTION SUBQ/IM Reviewed 08/30/2017 12:00 AM Rocephin 1 gram Injection, [facility] Medicare Reviewed 09/19/2017 12:00 AM THERAPEUTIC PROPHYLACTIC/DX INJECTION SUBQ/IM Reviewed 09/19/2017 12:00 AM Decadron 8mg Injection, [facility] Medicare Reviewed 09/19/2017 12:00 AM Depo-Medrol 80mg Injection, [facility] Medicare Reviewed 09/19/2017 12:00 AM Rocephin 1 gram Injection, [facility] Medicare Reviewed 04/05/2018 12:00 AM COMPLETE CBC W/AUTO DIFF WBC Returned 04/05/2018 12:00 AM COMPREHEN METABOLIC PANEL Returned 04/05/2018 12:00 AM ELECTROCARDIOGRAM TRACING Reviewed 01/18/2013 12:00 AM THER/PROPH/DIAG INJ SC/IM Reviewed 01/18/2013 12:00 AM Decadron, Per 1 Mg [facility]# [address]-83 Reviewed 01/18/2013 12:00 AM Depo-Medrol, Per 80 Mg [facility]#7659-5322-24 Reviewed 01/18/2013 12:00 AM Toradol 60 Mg [facility]#2122-1425-66 Reviewed 08/22/2018 12:00 AM THERAPEUTIC PROPHYLACTIC/DX INJECTION SUBQ/IM Reviewed 08/22/2018 12:00 AM Decadron 8mg Injection, [facility] Medicare Reviewed 08/22/2018 12:00 AM Depo-Medrol 80mg Injection, [facility] Medicare Reviewed 11/14/2018 12:00 AM THERAPEUTIC PROPHYLACTIC/DX INJECTION SUBQ/IM Reviewed 11/14/2018 12:00 AM Decadron 8mg Injection, [facility] Medicare Reviewed 11/14/2018 12:00 AM Rocephin 1 gram Injection, [facility] Medicare Reviewed 01/23/2019 12:00 AM THERAPEUTIC PROPHYLACTIC/DX INJECTION SUBQ/IM Reviewed 01/23/2019 12:00 AM Decadron 8mg Injection, [facility] Medicare Reviewed 02/10/2010 12:00 AM ROUTINE VENIPUNCTURE [...] SC/IM Reviewed 01/18/2011 12:00 AM Decadron Inj.8mg-([facility]) [facility] #[id number] Reviewed 01/18/2011 12:00 AM Depo-Medrol 80 Mg Im/[facility] [id number] Reviewed Results Summary Date and Description Results [...] 02 2011 9:58AM Chronic Obstructive Pulmonary Disease Sep 16 2011 2:33PM Cardiac Dysrhythmia Sep 16 2011 2:33PM [...] on imaging study Jan 30 2019 8:55AM Payers Insurance Name Company Name Plan Name Plan Number Policy Number Policy Group Number Start Date Medicare [facility] Medicare [facility] [id number] N/A [place] Prog [id number] N/A zzzTest Medicare A Test Medicare A [id number] N/A [facility] Comm [id number] N/A Medicare Part A Medicare - Lab/Xray [id number] N/A [facility] [id number] N/A Medicare Part A Medicare Part A [id number] N/A Medicare Part B Medicare Of [place] [id number] N/A History of Encounters Visit Date Visit Type Provider 01/30/2019 Laboratory Carol Ly RN 01/23/2019 Office visit MAIKEL SALTER PA 01/16/2019 Office visit MAIKEL SALTER PA 11/14/2018 Office visit MAIKEL SALETR PA 08/22/2018 Office visit MAIKEL SALTER PA [...] 01/17/2014 Office visit MAIKEL SALTER PA 12/03/2013 [facility] Melissa Seth MD 10/01/2013 Office visit MAIKEL SALTER PA 06/11/2013 Office visit MAIKEL SALTER PA 05/28/2013 [facility] Melissa Seth MD 02/05/2013 Office visit MAIKEL SALTER PA 01/18/2013 Office visit MAIKEL SALTER PA 06/08/2012 Office visit MAIKEL HASSAN 05/17/2012 Office visit MAIKEL SALTER PA 10/29/2011 Office visit MAIKEL HASSAN 09/16/2011 Office visit MAIKEL SALTER PA 09/16/2011 [facility] Melissa Seth MD 07/02/2011 Office visit MAIKEL SALTER PA 05/06/2011 Office visit Maikel Salter PA-C 01/18/2011 Office visit Maikel Salter PA-C 01/15/2011 Office visit Maikel Salter PA-C 06/18/2010 Office visit Maikel Salter PA-C 03/09/2010 Office visit Maikel Salter PA-C 02/10/2010 Office visit Maikel Salter PA-C
--- OUTSIDE RECORDS SUMMARY | 2019-02-06 09:22 | XMS REPORT ---
Author Author MAIKEL SALTER [facility] Address [address] [place], [place] [id number] Care Team Providers Care Flavor Tank Tender Name Role Phone MAIKEL SALTER PCP MAIKEL [...] route 4 times per day for COPD metoprolol succinate 25 mg oral tablet extended release 24 hr 02/10/2018 TAKE 1 TABLET DAILY Lasix 40 mg oral tablet 04/08/2018 take 1 tablet (40 mg) by oral route once daily fluticasone 50 mcg/actuation nasal spray,suspension 05/16/2018 inhale 1 spray (50 mcg) in each nostril by intranasal route 2 times per day hydrochlorothiazide 25 mg oral tablet 07/18/2018 TAKE 1 TABLET DAILY Sudogest 30 mg oral tablet 07/27/2018 take 1-2 tablets by oral route every 6 hours as needed lisinopril 10 mg oral tablet 10/03/2018 TAKE 1 TABLET BY MOUTH ONCE DAILY doxycycline hyclate 100 mg oral capsule 10/17/2018 take 1 capsule (100 mg) by oral route 2 times per day Name Start Date Expiration Date SIG Comments [...] every 12 hours for 10 days Zithromax Z-Rtavon 250 mg oral tablet 06/20/2015 06/25/2015 take [...] oral route once daily for 7 days amoxicillin 500 mg oral capsule 11/03/2018 11/13/2018 take 1 capsule (500 mg) by oral route 3 times per day for 10 days Medrol (Travon) 4 mg oral tablets,dose pack 11/03/2018 11/08/2018 take as directed for 5 days Discontinued Name Start Date Discontinued Date [...] HC BMI BSA BMI Percentile O2 Sat(%) 11/14/2018 3:13:00 PM 136 mmHg 86 mmHg [...] rpm 98.4 F 145 lbs 61 in 27.3972 kg/m 1.68 m2 97 % 04/04/2018 10:07:00 AM [...] SC/IM Reviewed 05/06/2011 12:00 AM Decadron Inj.1mg-([facility]) [facility] #[id number] Reviewed 05/06/2011 12:00 AM Depo-Medrol 80 Mg Im/[facility] [id number] Reviewed 05/06/2011 12:00 AM Rocephin, Per 250MG - 1 Gram Vial [facility] [id number]-Hf Paul Reviewed 10/29/2011 12:00 AM ROUTINE VENIPUNCTURE Reviewed 10/29/2011 12:00 AM COMPLETE CBC W/AUTO DIFF WBC Reviewed 10/29/2011 12:00 AM COMPREHEN METABOLIC PANEL Reviewed 10/29/2011 12:00 AM ASSAY THYROID STIM HORMONE Reviewed 06/24/2016 12:00 AM Decadron, Per 1 Mg [facility]# [id number] Reviewed 06/24/2016 12:00 AM Depo-Medrol, Per 80 Mg [facility]#[id number] Reviewed 06/24/2016 12:00 AM Rocephin 1 gram [facility]#[id number] Reviewed 07/26/2016 12:00 AM THER/PROPH/DIAG INJ SC/IM Reviewed 07/26/2016 12:00 AM Decadron 8mg Injection, [facility] Medicare Reviewed 07/26/2016 12:00 AM Depo-Medrol 80mg Injection, [facility] Medicare Reviewed 07/26/2016 12:00 AM Rocephin 1 gram Injection, [facility] Medicare Reviewed 12/16/2016 12:00 AM COMPLETE CBC W/AUTO DIFF WBC Reviewed 12/16/2016 12:00 AM COMPREHEN METABOLIC PANEL Reviewed 12/16/2016 12:00 AM LIPID PANEL Reviewed 12/28/2016 12:00 AM THERAPEUTIC PROPHYLACTIC/DX INJECTION SUBQ/IM Reviewed 12/28/2016 12:00 AM Decadron 8mg Injection, [facility] Medicare Reviewed 12/28/2016 12:00 AM Depo-Medrol 80mg Injection, [facility] Medicare Reviewed 04/12/2017 12:00 AM LIPID PANEL Returned 04/11/2017 12:00 AM THERAPEUTIC PROPHYLACTIC/DX INJECTION SUBQ/IM Reviewed 04/11/2017 12:00 AM Decadron 8mg Injection, [facility] Medicare Reviewed 04/11/2017 12:00 AM Depo-Medrol 80mg Injection, [facility] Medicare Reviewed 05/17/2012 12:00 AM THER/PROPH/DIAG INJ SC/IM Reviewed 05/17/2012 12:00 AM Decadron, Per 1 Mg [facility]# [id number] Reviewed 05/17/2012 12:00 AM Depo-Medrol, Per 80 Mg [facility]#[id number] Reviewed 05/17/2012 12:00 AM Toradol 60 Mg [facility]#[id number] Reviewed 06/07/2017 12:00 AM THERAPEUTIC PROPHYLACTIC/DX INJECTION SUBQ/IM Reviewed 06/07/2017 12:00 AM Decadron 8mg Injection, [facility] Medicare Reviewed 06/07/2017 12:00 AM Depo-Medrol 80mg Injection, [facility] Medicare Reviewed 08/30/2017 12:00 AM THERAPEUTIC PROPHYLACTIC/DX INJECTION SUBQ/IM Reviewed 08/30/2017 12:00 AM Rocephin 1 gram Injection, [facility] Medicare Reviewed 09/19/2017 12:00 AM THERAPEUTIC PROPHYLACTIC/DX INJECTION SUBQ/IM Reviewed 09/19/2017 12:00 AM Decadron 8mg Injection, [facility] Medicare Reviewed 09/19/2017 12:00 AM Depo-Medrol 80mg Injection, [facility] Medicare Reviewed 09/19/2017 12:00 AM Rocephin 1 gram Injection, [facility] Medicare Reviewed 04/05/2018 12:00 AM COMPLETE CBC W/AUTO DIFF WBC Returned 04/05/2018 12:00 AM COMPREHEN METABOLIC PANEL Returned 04/05/2018 12:00 AM ELECTROCARDIOGRAM TRACING Reviewed 01/18/2013 12:00 AM THER/PROPH/DIAG INJ SC/IM Reviewed 01/18/2013 12:00 AM Decadron, Per 1 Mg [facility]# [id number] Reviewed 01/18/2013 12:00 AM Depo-Medrol, Per 80 Mg [facility]#[id number] Reviewed 01/18/2013 12:00 AM Toradol 60 Mg [facility]#[id number] Reviewed 08/22/2018 12:00 AM THERAPEUTIC PROPHYLACTIC/DX INJECTION SUBQ/IM Reviewed 08/22/2018 12:00 AM Decadron 8mg Injection, [facility] Medicare Reviewed 08/22/2018 12:00 AM Depo-Medrol 80mg Injection, [facility] Medicare Reviewed 11/14/2018 12:00 AM THERAPEUTIC PROPHYLACTIC/DX INJECTION SUBQ/IM Reviewed 11/14/2018 12:00 AM Decadron 8mg Injection, [facility] Medicare Reviewed 11/14/2018 12:00 AM Rocephin 1 gram Injection, [facility] Medicare Reviewed 02/10/2010 12:00 AM ROUTINE VENIPUNCTURE [...] SC/IM Reviewed 01/18/2011 12:00 AM Decadron Inj.8mg-([facility]) [facility] #[id number] Reviewed 01/18/2011 12:00 AM Depo-Medrol 80 Mg Im/[facility] [id number] Reviewed Results Summary Date and Description Results [...] 3:15PM COPD exacerbation Nov 14 2018 3:15PM Payers Insurance Name Company Name Plan Name Plan Number Policy Number Policy Group Number Start Date Medicare RHC Medicare RHC [id number] N/A [place] [employer] [place] [employer] [place] Prog [id number] N/A zzzTest Medicare A Test Medicare A [id number] N/A [facility] - RHC - [facility] RHC Comm [id number] N/A Medicare Part A Medicare - Lab/Xray [id number] N/A [place] [employer] - RHC [place] [employer] - RHC [id number] N/A Medicare Part A Medicare Part A [id number] N/A Medicare Part B Medicare Of [place] [id number] N/A History of Encounters Visit Date Visit Type Provider 11/14/2018 Office visit MAIKEL HASSAN 08/22/2018 Office visit MAIKEL HASSAN 06/20/2018 Office visit MAIKEL HASSAN 05/16/2018 Office visit MAIKEL HASSAN 04/04/2018 Office visit MAIKEL HASSAN 01/31/2018 Office visit MAIKEL HASSAN 01/03/2018 Office visit MAIKEL HASSAN 11/29/2017 Office visit MAIKEL HASSAN 09/19/2017 Office visit MAIKEL HASSAN 08/30/2017 Office visit MAIKEL HASSAN 06/07/2017 Office visit MAIKEL HASSAN 04/12/2017 Voided MAIKEL HASSAN 04/11/2017 Office visit MAIKEL HASSAN 02/01/2017 Office visit MAIKEL HASSAN 01/21/2017 Office visit MAIKEL HASSAN 01/18/2017 Office visit MAIKEL HASSAN 12/28/2016 Office visit MAIKEL HASSAN 07/26/2016 Office visit MAIKEL SALTER PA 06/24/2016 Office visit MAIKEL SALTER PA 10/23/2015 Office visit MAIKEL SALTER PA 07/29/2015 Office visit MAIKEL SALTER PA 06/09/2015 Office visit MAIKEL SALTER PA 05/20/2015 Office visit MAIKEL SALTER PA 06/11/2014 Office visit MAIKEL SALTER PA 05/30/2014 Office visit MAIKEL SALTER PA 01/17/2014 Office visit MAIKEL SALTER PA 12/03/2013 [facility] Melissa Seth MD 10/01/2013 Office visit MAIKEL SALTER PA 06/11/2013 Office visit MAIKEL SALTER PA 05/28/2013 [facility] Melissa Seth MD 02/05/2013 Office visit MAIKEL SALTER PA 01/18/2013 Office visit MAIKEL SALTER PA 06/08/2012 Office visit MAIKEL SALTER PA 05/17/2012 Office visit MAIKEL SALTER PA 10/29/2011 Office visit MAIKEL SALTER PA 09/16/2011 Office visit MAIKEL SALTER PA 09/16/2011 [facility] Melissa Seth MD 07/02/2011 Office visit MAIKEL SALTER PA 05/06/2011 Office visit Maikel Salter PA-C 01/18/2011 Office visit Maikel Salter PA-C 01/15/2011 Office visit Maikel Salter PA-C 06/18/2010 Office visit Maikel Salter PA-C 03/09/2010 Office visit Maikel Salter PA-C 02/10/2010 Office visit Maikel Salter PA-C
--- OUTSIDE RECORDS SUMMARY | 2019-02-06 09:23 | XMS REPORT ---
Author Author MAIKEL SALTER [facility] Address [address] [place], [place] [address] Care Team Providers Care Cash Posting Representative Name Role Phone MAIKEL SALTER PCP MAIKEL [...] oral tablet 07/18/2018 TAKE 1 TABLET DAILY lisinopril 10 mg oral tablet 07/25/2018 10/23/2018 take 1 tablet (10 mg) by oral route once daily for 30 days Sudogest 30 mg oral tablet 07/27/2018 take 1-2 tablets by oral route every 6 hours as needed Name Start Date Expiration Date SIG Comments [...] 7 days amoxicillin 500 mg oral capsule 08/22/2018 09/01/2018 take 1 capsule (500 mg) by oral [...] HC BMI BSA BMI Percentile O2 Sat(%) 08/22/2018 3:30:00 PM 108 mmHg 72 mmHg 82 bpm 18 rpm 98.1 F 142 lbs 62 in 25.9719 kg/m 1.6786 m 89 % 06/20/2018 9:30:00 AM 154 mmHg 100 mmHg 108 bpm 20 rpm 98.1 F 145 lbs 62 in 26.52 kg/m2 1.70 m2 91 % 05/18/2018 9:00:00 AM 114 mmHg 74 mmHg 76 bpm 18 rpm 98.4 F 145 lbs 61 in 27.3972 kg/m 1.6825 m 97 % 04/04/2018 10:07:00 AM 124 mmHg [...] SC/IM Reviewed 05/06/2011 12:00 AM Decadron Inj.1mg-([facility]) [facility] #[id number] Reviewed 05/06/2011 12:00 AM Depo-Medrol 80 Mg Im/[facility] [id number] Reviewed 05/06/2011 12:00 AM Rocephin, Per 250MG - 1 Gram Vial [facility] [id number] Reviewed 10/29/2011 12:00 AM ROUTINE VENIPUNCTURE Reviewed 10/29/2011 12:00 AM COMPLETE CBC W/AUTO DIFF WBC Reviewed 10/29/2011 12:00 AM COMPREHEN METABOLIC PANEL Reviewed 10/29/2011 12:00 AM ASSAY THYROID STIM HORMONE Reviewed 06/24/2016 12:00 AM Decadron, Per 1 Mg [facility]# [address]-84 Reviewed 06/24/2016 12:00 AM Depo-Medrol, Per 80 Mg [facility]#2049-7392-88 Reviewed 06/24/2016 12:00 AM Rocephin 1 gram [facility]#[id number] Reviewed 07/26/2016 12:00 AM THER/PROPH/DIAG INJ SC/IM Reviewed 07/26/2016 12:00 AM Decadron 8mg Injection, [facility] Medicare Reviewed 07/26/2016 12:00 AM Depo-Medrol 80mg Injection, [facility] Medicare Reviewed 07/26/2016 12:00 AM Rocephin 1 gram Injection, [facility] Medicare Reviewed 12/16/2016 12:00 AM COMPLETE CBC W/AUTO DIFF WBC Reviewed 12/16/2016 12:00 AM COMPREHEN METABOLIC PANEL Reviewed 12/16/2016 12:00 AM LIPID PANEL Reviewed 12/28/2016 12:00 AM THERAPEUTIC PROPHYLACTIC/DX INJECTION SUBQ/IM Reviewed 12/28/2016 12:00 AM Decadron 8mg Injection, [facility] Medicare Reviewed 12/28/2016 12:00 AM Depo-Medrol 80mg Injection, [facility] Medicare Reviewed 04/12/2017 12:00 AM LIPID PANEL Returned 04/11/2017 12:00 AM THERAPEUTIC PROPHYLACTIC/DX INJECTION SUBQ/IM Reviewed 04/11/2017 12:00 AM Decadron 8mg Injection, [facility] Medicare Reviewed 04/11/2017 12:00 AM Depo-Medrol 80mg Injection, [facility] Medicare Reviewed 05/17/2012 12:00 AM THER/PROPH/DIAG INJ SC/IM Reviewed 05/17/2012 12:00 AM Decadron, Per 1 Mg [facility]# [id number] Reviewed 05/17/2012 12:00 AM Depo-Medrol, Per 80 Mg [facility]#0117-3852-29 Reviewed 05/17/2012 12:00 AM Toradol 60 Mg [facility]#1613-7115-34 Reviewed 06/07/2017 12:00 AM THERAPEUTIC PROPHYLACTIC/DX INJECTION [...] AM Decadron, Per 1 Mg [facility]# [address]-15 Reviewed 01/18/2013 12:00 AM Depo-Medrol, Per 80 Mg [facility]#1360-8416-23 Reviewed 01/18/2013 12:00 AM Toradol 60 Mg [facility]#9765-5917-40 Reviewed 08/22/2018 12:00 AM THERAPEUTIC PROPHYLACTIC/DX INJECTION SUBQ/IM Reviewed 08/22/2018 12:00 AM Decadron 8mg Injection, [facility] Medicare Reviewed 08/22/2018 12:00 AM Depo-Medrol 80mg Injection, [facility] Medicare Reviewed 02/10/2010 12:00 AM [...] INJ SC/IM Reviewed 01/18/2011 12:00 AM Decadron Inj.8mg-([facility]) [facility] #[id number] Reviewed 01/18/2011 12:00 AM Depo-Medrol 80 Mg Im/[facility] [id number] Reviewed Results Summary Date and Description Results [...] 4:44PM Sinus pressure Sep 04 2018 4:44PM Payers Insurance Name Company Name Plan Name Plan Number Policy Number Policy Group Number Start Date Medicare RHC Medicare RHC [id number] N/A [place] [employer] [place] [employer] Prog [id number] N/A zzzTest Medicare A Test Medicare A [id number] N/A [employer] - RHC - [facility] Comm [id number] N/A Medicare Part A Medicare - Lab/Xray [id number] N/A [facility] [id number] N/A Medicare Part A Medicare Part A [id number] N/A Medicare Part B Medicare Of [place] [id number] N/A History of Encounters Visit Date Visit Type Provider 08/22/2018 Office visit MAIKEL SALTER PA 06/20/2018 Office visit MAIKEL SALTER PA 05/16/2018 Office visit MAIKEL SALTER PA 04/04/2018 Office visit MAIKEL SALTER PA 01/31/2018 Office visit MAIKEL HASSAN 01/03/2018 Office visit MAIKEL SALTER PA 11/29/2017 Office visit MAIKEL SALTER PA 09/19/2017 Office visit MAIKEL SALTER PA 08/30/2017 Office visit MAIKEL HASSAN 06/07/2017 Office visit MAIKEL SALTER PA 04/12/2017 [...] 06/11/2013 Office visit MAIKEL SALTER PA 05/28/2013 [facility] Melissa Seth MD 02/05/2013 Office visit MAIKEL HASSAN 01/18/2013 Office visit MAIKEL SALTER PA 06/08/2012 Office visit MAIKEL SALTER PA 05/17/2012 Office visit MAIKEL SALTER PA 10/29/2011 Office visit MAIKEL SALTER PA 09/16/2011 Office visit MAIKEL SALTER PA 09/16/2011 [facility] Melissa Seth MD 07/02/2011 Office visit MAIKEL SALTER PA 05/06/2011 Office visit Maikel Salter PA-C 01/18/2011 Office visit Maikel Salter PA-C 01/15/2011 Office visit Maikel Salter PA-C 06/18/2010 Office visit Maikel Salter PA-C 03/09/2010 Office visit Maikel Salter PA-C 02/10/2010 Office visit Maikel Salter PA-C
--- OUTSIDE RECORDS SUMMARY | 2019-02-06 09:24 | XMS REPORT ---
Author Author MAIKEL SALTER [facility] Address [address] [place], [place] [address] Care Team Providers Care Supervisor Brine Name Role Phone MAIKEL SALTER PCP MAIKEL SALTER PreferredProvider Allergies and Adverse Reactions Name Reaction Notes SULFA (SULFONAMIDES) nausea Plan of Treatment Planned Activity Comments Planned Date Planned Time Plan/Goal Lipid Profile 04/05/2016 12:00 AM Chest PA and Lateral - Main 03/24/2017 12:00 AM Lipid Profile 04/05/2018 12:00 AM Medications Active Name Start Date [...] oral route every 6 hours as needed amoxicillin 500 mg oral capsule 08/22/2018 09/01/2018 take 1 capsule (500 mg) by oral route 3 times per day for 10 days Name Start Date Expiration Date SIG Comments [...] oral route once daily for 7 days Discontinued Name Start Date Discontinued Date [...] SC/IM Reviewed 05/06/2011 12:00 AM Decadron Inj.1mg-([facility]) [facility] #[id number] Reviewed 05/06/2011 12:00 AM Depo-Medrol 80 Mg Im/[facility] [id number] Reviewed 05/06/2011 12:00 AM Rocephin, Per 250MG - 1 Gram Vial [facility] [id number]-B[facility] Reviewed 10/29/2011 12:00 AM ROUTINE VENIPUNCTURE Reviewed 10/29/2011 12:00 AM COMPLETE CBC W/AUTO DIFF WBC Reviewed 10/29/2011 12:00 AM COMPREHEN METABOLIC PANEL Reviewed 10/29/2011 12:00 AM ASSAY THYROID STIM HORMONE Reviewed 06/24/2016 12:00 AM Decadron, Per 1 Mg [facility]# [address]-94 Reviewed 06/24/2016 12:00 AM Depo-Medrol, Per 80 Mg [facility]#7450-5834-40 Reviewed 06/24/2016 12:00 AM Rocephin 1 gram [facility]#5713-1935-15 Reviewed 07/26/2016 12:00 AM THER/PROPH/DIAG INJ SC/IM Reviewed 07/26/2016 12:00 AM Decadron 8mg Injection, [facility] Medicare Reviewed 07/26/2016 12:00 AM Depo-Medrol 80mg Injection, [facility] Medicare Reviewed 07/26/2016 12:00 AM Rocephin 1 gram Injection, [facility] Medicare Reviewed 12/16/2016 12:00 AM COMPLETE CBC W/AUTO DIFF WBC Reviewed 12/16/2016 12:00 AM COMPREHEN METABOLIC PANEL Reviewed 12/16/2016 12:00 AM LIPID PANEL Reviewed 12/28/2016 12:00 AM THERAPEUTIC PROPHYLACTIC/DX INJECTION SUBQ/IM Reviewed 12/28/2016 12:00 AM Decadron 8mg Injection, [facility] Medicare Reviewed 12/28/2016 12:00 AM Depo-Medrol 80mg Injection, [facility] Medicare Reviewed 04/12/2017 12:00 AM LIPID PANEL Returned 04/11/2017 12:00 AM THERAPEUTIC PROPHYLACTIC/DX INJECTION SUBQ/IM Reviewed 04/11/2017 12:00 AM Decadron 8mg Injection, [facility] Medicare Reviewed 04/11/2017 12:00 AM Depo-Medrol 80mg Injection, [facility] Medicare Reviewed 05/17/2012 12:00 AM THER/PROPH/DIAG INJ SC/IM Reviewed 05/17/2012 12:00 AM Decadron, Per 1 Mg [facility]# [address]-16 Reviewed 05/17/2012 12:00 AM Depo-Medrol, Per 80 Mg [facility]#1503-3397-56 Reviewed 05/17/2012 12:00 AM Toradol 60 Mg [facility]#1042-8603-19 Reviewed 06/07/2017 12:00 AM THERAPEUTIC PROPHYLACTIC/DX INJECTION SUBQ/IM Reviewed 06/07/2017 12:00 AM Decadron 8mg Injection, [facility] Medicare Reviewed 06/07/2017 12:00 AM Depo-Medrol 80mg Injection, [facility] Medicare Reviewed 08/30/2017 12:00 AM THERAPEUTIC PROPHYLACTIC/DX [...] 01/18/2013 12:00 AM Decadron, Per 1 Mg [facility]# [address]-07 Reviewed 01/18/2013 12:00 AM Depo-Medrol, Per 80 Mg [facility]#6259-0311-98 Reviewed 01/18/2013 12:00 AM Toradol 60 Mg [facility]#7667-5696-65 Reviewed 08/22/2018 12:00 AM THERAPEUTIC PROPHYLACTIC/DX INJECTION SUBQ/IM Reviewed 08/22/2018 12:00 AM Decadron 8mg Injection, [facility] Medicare Reviewed 08/22/2018 12:00 AM Depo-Medrol 80mg Injection, [facility] Medicare Reviewed 02/10/2010 12:00 AM ROUTINE VENIPUNCTURE [...] SC/IM Reviewed 01/18/2011 12:00 AM Decadron Inj.8mg-([facility]) [facility] #[id number] Reviewed 01/18/2011 12:00 AM Depo-Medrol 80 Mg Im/[facility] [id number] Reviewed Results Summary Date and Description Results [...] 2017 1:36PM Moderate Acute Recurrent Chest congestion Feb 2018 1:36PM COPD exacerbation Sep 19 2017 1:36PM [...] Acute bronchitis, unspecified Aug 22 2018 3:35PM Payers Insurance Name Company Name Plan Name Plan Number Policy Number Policy Group Number Start Date Medicare RHC Medicare RHC [id number] N/A [place] [employer] [place] [employer] Prog [id number] N/A zzzTest Medicare A Test Medicare A [id number] N/A [facility] - [facility] - [facility] Comm [id number] N/A Medicare Part A Medicare - Lab/Xray [id number] N/A [place] [employer] Prog - RHC [facility] Asst Prog - C [id number] N/A Medicare Part A Medicare Part A [id number] N/A Medicare Part B Medicare Of [place] [id number] N/A History of Encounters Visit Date Visit [...] 01/17/2014 Office visit MAIKEL SALTER PA 12/03/2013 [facility] Melissa Seth MD 10/01/2013 Office visit MAIKEL SALTER PA 06/11/2013 Office visit MAIKEL SALTER PA 05/28/2013 [facility] Melissa Seth MD 02/05/2013 Office visit MAIKEL SALTER PA 01/18/2013 Office visit MAIKEL SALTER PA 06/08/2012 Office visit MAIKEL SALTER PA 05/17/2012 Office visit MAIKEL SALTER PA 10/29/2011 Office visit MAIKEL HASSAN 09/16/2011 Office visit MAIKEL HASSAN 09/16/2011 [facility] Melissa Seth MD 07/02/2011 Office visit MAIKEL HASSAN 05/06/2011 Office visit Maikel HASSAN-C 01/18/2011 Office visit Maikel HASSAN-C 01/15/2011 Office visit Maikel HASSAN-C 06/18/2010 Office visit Maikel SAMANOC 03/09/2010 Office visit Maikel HASASN-C 02/10/2010 Office visit Maikel SAMANOC
--- OUTSIDE RECORDS SUMMARY | 2019-02-06 09:25 | XMS REPORT ---
Author Author MAIKEL SALTER [facility] Address [address] [place], [place] [id number] Care Team Providers Care Head Turning Machine Operator Name Role Phone MAIKEL SALTER [...] (40 mg) by oral route once daily hydrochlorothiazide 25 mg oral tablet 05/05/2018 TAKE 1 TABLET DAILY fluticasone 50 mcg/actuation nasal spray,suspension 05/16/2018 inhale 1 spray (50 mcg) in each nostril by intranasal route 2 times per day lisinopril 10 mg oral tablet 06/20/2018 09/18/2018 take 1 tablet (10 mg) by oral route once daily for 30 days Name Start Date Expiration Date SIG [...] 02/28/2018 2X4 days 1X4 days 1/2X4 days amoxicillin 500 mg oral capsule 05/16/2018 05/26/2018 take 1 capsule (500 mg) by oral [...] Obstructive Pulmonary Disease Active Hyperlipidemia Active Anxiety Disorder Active 06/12/2013 Pain in joint; Hip Active [...] HC BMI BSA BMI Percentile O2 Sat(%) 06/20/2018 9:30:00 AM 154 mmHg 100 mmHg [...] INJ SC/IM Reviewed 05/06/2011 12:00 AM Decadron Inj.1mg-([facility]) [facility] #[id number] Reviewed 05/06/2011 12:00 AM Depo-Medrol 80 Mg Im/[facility] [id number] Reviewed 05/06/2011 12:00 AM Rocephin, Per 250MG - 1 Gram Vial [facility] [id number] Paul Reviewed 10/29/2011 12:00 AM ROUTINE VENIPUNCTURE Reviewed 10/29/2011 12:00 AM COMPLETE CBC W/AUTO DIFF WBC Reviewed 10/29/2011 12:00 AM COMPREHEN METABOLIC PANEL Reviewed 10/29/2011 12:00 AM ASSAY THYROID STIM HORMONE Reviewed 06/24/2016 12:00 AM Decadron, Per 1 Mg [facility]# [address]-28 Reviewed 06/24/2016 12:00 AM Depo-Medrol, Per 80 Mg [facility]#9165-1907-63 Reviewed 06/24/2016 12:00 AM Rocephin 1 gram [facility]#1255-9495-92 Reviewed 07/26/2016 12:00 AM THER/PROPH/DIAG INJ SC/IM [...] Reviewed 12/28/2016 12:00 AM Depo-Medrol 80mg Injection, [facility] Medicare Reviewed 04/12/2017 12:00 AM LIPID PANEL Returned 04/11/2017 12:00 AM THERAPEUTIC PROPHYLACTIC/DX INJECTION SUBQ/IM Reviewed 04/11/2017 12:00 AM Decadron 8mg Injection, [facility] Medicare Reviewed 04/11/2017 12:00 AM Depo-Medrol 80mg Injection, [facility] Medicare Reviewed 05/17/2012 12:00 AM THER/PROPH/DIAG INJ SC/IM Reviewed 05/17/2012 12:00 AM Decadron, Per 1 Mg [facility]# [address]-91 Reviewed 05/17/2012 12:00 AM Depo-Medrol, Per 80 Mg [facility]#7492-6354-91 Reviewed 05/17/2012 12:00 AM Toradol 60 Mg [facility]#5056-6204-42 Reviewed 06/07/2017 12:00 AM THERAPEUTIC PROPHYLACTIC/DX INJECTION [...] 01/18/2013 12:00 AM Decadron, Per 1 Mg [facility]# [address]-53 Reviewed 01/18/2013 12:00 AM Depo-Medrol, Per 80 Mg [facility]#0222[address]-67 Reviewed 01/18/2013 12:00 AM Toradol 60 Mg [facility]#0361-3923-42 Reviewed 02/10/2010 12:00 AM ROUTINE VENIPUNCTURE Reviewed [...] SC/IM Reviewed 01/18/2011 12:00 AM Decadron Inj.8mg-([facility]) [facility] #[id number] Reviewed 01/18/2011 12:00 AM Depo-Medrol 80 Mg Im/[facility] [id number] Reviewed Results Summary Date and Description Results [...] bursa; other Mar 09 2010 11:48AM Anxiety Disorder 06/12/2013 Pain in joint; Hip 01/22/2014 Pulmonary [...] Ear pain, bilateral Jun 20 2018 9:31AM Payers Insurance Name Company Name Plan Name Plan Number Policy Number Policy Group Number Start Date Medicare RHC Medicare RHC [id number] N/A [place] [employer] [place] [employer] [place] Prog [id number] N/A zzzTest Medicare A Test Medicare A [id number] N/A [facility] - RHC - [facility] RHC Comm [id number] N/A Medicare Part A Medicare - Lab/Xray [id number] N/A [place] [employer] - RHC [place] [employer] - RHC [id number] N/A Medicare Part A Medicare Part A [id number] N/A Medicare Part B Medicare Of [place] [id number] N/A History of Encounters Visit Date Visit Type Provider 06/20/2018 Office visit MAIKEL HASSAN 05/16/2018 Office [...] visit MAIKEL HASSAN 01/18/2017 Office visit MAIKEL SALTER PA 12/28/2016 [...] 01/17/2014 Office visit MAIKEL SALTER PA 12/03/2013 [facility] Melissa Seth MD 10/01/2013 Office visit MAIKEL SALTER PA 06/11/2013 Office visit MAIKEL SALTER PA 05/28/2013 [facility] Melissa Seth MD 02/05/2013 Office visit MAIKEL SALTER PA 01/18/2013 Office visit MAIKEL SALTER PA 06/08/2012 Office visit MAIKEL SALTER PA 05/17/2012 Office visit MAIKEL SALTER PA 10/29/2011 Office visit MAIKEL SALTER PA 09/16/2011 Office visit MAIKEL SALTER PA 09/16/2011 [facility] Melissa Seth MD 07/02/2011 Office visit MAIKEL SALTER PA 05/06/2011 Office visit Maikel Salter PA-C 01/18/2011 Office visit Maikel Salter PA-C 01/15/2011 Office visit Maikel Salter PA-C 06/18/2010 Office visit Maikel Salter PA-C 03/09/2010 Office visit Maikel Salter PA-C 02/10/2010 Office visit Maikel Salter PA-C
--- OUTSIDE RECORDS SUMMARY | 2019-02-06 09:27 | XMS REPORT ---
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 Role Phone MAIKEL SALTER PCP MAIKEL [...] oral tablet 05/05/2018 TAKE 1 TABLET DAILY amoxicillin 500 mg oral capsule 05/16/2018 05/26/2018 take 1 capsule (500 mg) by oral route 3 times per day for 10 days fluticasone 50 mcg/actuation nasal spray,suspension 05/16/2018 inhale 1 spray (50 mcg) in each nostril by intranasal route 2 times per day Name Start [...] 02/28/2018 2X4 days 1X4 days 1/2X4 days Discontinued Name Start Date Discontinued Date [...] HC BMI BSA BMI Percentile O2 Sat(%) 05/18/2018 9:00:00 AM 114 mmHg 74 mmHg [...] SC/IM Reviewed 05/06/2011 12:00 AM Decadron Inj.1mg-([facility]) [facility] #[id number] Reviewed 05/06/2011 12:00 AM Depo-Medrol 80 Mg Im/[facility] [id number] Reviewed 05/06/2011 12:00 AM Rocephin, Per 250MG - 1 Gram Vial [facility] [id number]-B[facility] Reviewed 10/29/2011 12:00 AM ROUTINE VENIPUNCTURE Reviewed 10/29/2011 12:00 AM COMPLETE CBC W/AUTO DIFF WBC Reviewed 10/29/2011 12:00 AM COMPREHEN METABOLIC PANEL Reviewed 10/29/2011 12:00 AM ASSAY THYROID STIM HORMONE Reviewed 06/24/2016 12:00 AM Decadron, Per 1 Mg [facility]# [address]-85 Reviewed 06/24/2016 12:00 AM Depo-Medrol, Per 80 Mg [facility]#4447-7689-14 Reviewed 06/24/2016 12:00 AM Rocephin 1 gram [facility]#6329-1106-58 Reviewed 07/26/2016 12:00 AM THER/PROPH/DIAG INJ SC/IM Reviewed 07/26/2016 12:00 AM Decadron 8mg Injection, [facility] Medicare Reviewed 07/26/2016 12:00 AM Depo-Medrol 80mg Injection, [facility] Medicare Reviewed 07/26/2016 12:00 AM Rocephin 1 gram Injection, [facility] Medicare Reviewed 12/16/2016 12:00 AM COMPLETE CBC W/AUTO DIFF WBC Reviewed 12/16/2016 12:00 AM COMPREHEN METABOLIC PANEL Reviewed 12/16/2016 12:00 AM LIPID PANEL Reviewed 12/28/2016 12:00 AM THERAPEUTIC PROPHYLACTIC/DX INJECTION SUBQ/IM Reviewed 12/28/2016 12:00 AM Decadron 8mg Injection, [facility] Medicare Reviewed 12/28/2016 12:00 AM Depo-Medrol 80mg Injection, [facility] Medicare Reviewed 04/12/2017 12:00 AM LIPID PANEL Returned 04/11/2017 12:00 AM THERAPEUTIC PROPHYLACTIC/DX INJECTION SUBQ/IM Reviewed 04/11/2017 12:00 AM Decadron 8mg Injection, [facility] Medicare Reviewed 04/11/2017 12:00 AM Depo-Medrol 80mg Injection, [facility] Medicare Reviewed 05/17/2012 12:00 AM THER/PROPH/DIAG INJ SC/IM Reviewed 05/17/2012 12:00 AM Decadron, Per 1 Mg [facility]# [address]-17 Reviewed 05/17/2012 12:00 AM Depo-Medrol, Per 80 Mg [facility]#9136-6389-77 Reviewed 05/17/2012 12:00 AM Toradol 60 Mg [facility]#2646-3466-83 Reviewed 06/07/2017 12:00 AM THERAPEUTIC PROPHYLACTIC/DX INJECTION SUBQ/IM Reviewed 06/07/2017 12:00 AM Decadron 8mg Injection, [facility] Medicare Reviewed 06/07/2017 12:00 AM Depo-Medrol 80mg Injection, [facility] Medicare Reviewed 08/30/2017 12:00 AM THERAPEUTIC PROPHYLACTIC/DX INJECTION SUBQ/IM Reviewed 08/30/2017 12:00 AM Rocephin 1 gram Injection, [facility] Medicare Reviewed 09/19/2017 12:00 AM THERAPEUTIC PROPHYLACTIC/DX [...] 12:00 AM Decadron, Per 1 Mg [facility]# [address]-08 Reviewed 01/18/2013 12:00 AM Depo-Medrol, Per 80 Mg [facility]#9648-00[address]-71 Reviewed 01/18/2013 12:00 AM Toradol 60 Mg [facility]#7488-9313-49 Reviewed 02/10/2010 12:00 AM ROUTINE VENIPUNCTURE Reviewed [...] SC/IM Reviewed 01/18/2011 12:00 AM Decadron Inj.8mg-([facility]) [facility] #[id number] Reviewed 01/18/2011 12:00 AM Depo-Medrol 80 Mg Im/[facility] [id number] Reviewed Results Summary Date and Description Results [...] Sep 19 2017 1:36PM Acute bronchitis, unspecified b 2017 1:36PM Cough Nov 29 2017 3:29PM [...] Ear pain, right May 18 2018 9:03AM Payers Insurance Name Company Name Plan Name Plan Number Policy Number Policy Group Number Start Date Medicare RHC Medicare RHC [id number] N/A [place] [employer] [place] [employer] Prog [id number] N/A zzzTest Medicare A Test Medicare A [id number] N/A [facility] - RHC - [facility] Plan [facility] RHC Comm [id number] N/A Medicare Part A Medicare - Lab/Xray [id number] N/A [place] [employer]ist Prog - RHC [place] [employer] Prog - RHC [id number] N/A Medicare Part A Medicare Part A [id number] N/A Medicare Part B Medicare Of [place] [id number] N/A History of Encounters Visit Date Visit Type Provider 05/16/2018 Office visit MAIKEL HASSAN 04/04/2018 Office [...] visit MAIKEL HASSAN 07/26/2016 Office visit MAIKEL HASSAN 06/24/2016 Office visit MAIKEL HASSAN 10/23/2015 Office visit MAIKEL HASSAN 07/29/2015 Office visit MAIKEL HASSAN 06/09/2015 Office visit MAIKEL HASSAN 05/20/2015 Office visit MAIKEL HASSAN 06/11/2014 Office visit MAIKEL SALTER PA 05/30/2014 Office visit MAIKEL SALTER PA 01/17/2014 Office visit MAIKEL SALTER PA 12/03/2013 [facility] Melissa Seth MD 10/01/2013 Office visit MAIKEL SALTER PA 06/11/2013 Office visit MAIKEL SALTER PA 05/28/2013 [facility] Melissa Seth MD 02/05/2013 Office visit MAIKEL SALTER PA 01/18/2013 Office visit MAIKEL SALTER PA 06/08/2012 Office visit MAIKEL SALTER PA 05/17/2012 Office visit MAIKEL SALTER PA 10/29/2011 Office visit MAIKEL SALTER PA 09/16/2011 Office visit MAIKEL SALTER PA 09/16/2011 [facility] Melissa Seth MD 07/02/2011 Office visit MAIKEL SALTER PA 05/06/2011 Office visit Maikel Salter PA-C 01/18/2011 Office visit Maikel Salter PA-C 01/15/2011 Office visit Maikel Salter PA-C 06/18/2010 Office visit Maikel Salter PA-C 03/09/2010 Office visit Maikel Salter PA-C 02/10/2010 Office visit Maikel Salter PA-C
[2019-02-06] MEDS ORDERED: LABETALOL HCL 20 MG/4 ML VIAL IV STA (09:28)
--- NOTE | 2019-02-06 09:28 | NUR ---
Pt placed on bipap by RT Alisha, at this time. Addendum: 02/06/19 at 1035 by [id number] bipap settings 27/12 at this time
--- OUTSIDE RECORDS SUMMARY | 2019-02-06 09:28 | XMS REPORT ---
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 04/05/2018 12:00 AM Medications Active Name Start [...] route 4 times per day DX J44.9 Symbicort 160-4.5 mcg/actuation inhalation HFA aerosol inhaler 06/08/2017 inhale 2 puffs by inhalation route 2 times per day in the morning and evening ipratropium-albuterol 0.5 mg-3 mg(2.5 mg base)/3 mL inhalation solution for nebulization 09/19/2017 inhale 3 milliliters by nebulization route 4 times per day for COPD metoprolol succinate 25 mg oral tablet extended release 24 hr 02/10/2018 TAKE 1 TABLET DAILY Tessalon Perles 100 mg oral capsule 02/16/2018 take 1 capsule (100 mg) by oral route 3 times per day as needed for cough Sudogest 30 mg oral tablet 02/16/2018 take 1 tablets (60 mg) by oral route every 6 hours as needed amoxicillin 500 mg oral capsule 02/21/2018 take 1 capsule (500 mg) by oral route 3 times per day hydrochlorothiazide 25 mg oral tablet 03/31/2018 TAKE 1 TABLET DAILY Lasix 40 mg oral tablet 04/08/2018 take 1 tablet (40 mg) by oral route once daily Name [...] route every 12 hours for 10 days Levaquin 500 mg oral tablet 08/19/2017 08/31/2017 take 1 tablet (500 mg) by oral route once daily for 10 days Bactrim DS 800-160 mg oral tablet 01/31/2018 02/03/2018 take 1 tablet by oral route every 12 hours for 10 days nausea Problem List Description Status Onset Chronic Obstructive [...] HC BMI BSA BMI Percentile O2 Sat(%) 04/04/2018 10:07:00 AM 124 mmHg 82 mmHg 86 bpm 18 rpm 98.2 F 149 lbs 61 in 28.153 kg/m 1.7055 m 92 % 01/31/2018 10:48:00 AM 118 mmHg 80 mmHg 82 bpm 18 rpm 98.3 F 144 lbs 61 in 27.21 kg/m2 1.68 m2 93 % 01/03/2018 2:35:00 PM 120 mmHg 82 mmHg 106 bpm 20 rpm 98.2 F 142 lbs 62 in 25.9719 kg/m 1.6786 m 92 % 11/29/2017 3:28:00 PM 122 mmHg [...] SC/IM Reviewed 05/06/2011 12:00 AM Decadron Inj.1mg-([facility]) [facility] #[id number] Reviewed 05/06/2011 12:00 AM Depo-Medrol 80 Mg Im/[facility] [id number] Reviewed 05/06/2011 12:00 AM Rocephin, Per 250MG - 1 Gram Vial [facility] [id number]-[place] Reviewed 10/29/2011 12:00 AM ROUTINE VENIPUNCTURE Reviewed 10/29/2011 12:00 AM COMPLETE CBC W/AUTO DIFF WBC Reviewed 10/29/2011 12:00 AM COMPREHEN METABOLIC PANEL Reviewed 10/29/2011 12:00 AM ASSAY THYROID STIM HORMONE Reviewed 06/24/2016 12:00 AM Decadron, Per [address] [facility]# [address]-74 Reviewed 06/24/2016 12:00 AM Depo-Medrol, Per [address] [facility]#5421-9311-94 Reviewed 06/24/2016 12:00 AM Rocephin [address] [facility]#2218-7804-86 Reviewed 07/26/2016 12:00 AM THER/PROPH/DIAG INJ SC/IM Reviewed 07/26/2016 12:00 AM Decadron 8mg Injection, [facility] Medicare Reviewed 07/26/2016 12:00 AM Depo-Medrol 80mg Injection, [facility] Medicare Reviewed 07/26/2016 12:00 AM Rocephin 1 gram Injection, [facility] Medicare Reviewed 12/16/2016 12:00 AM COMPLETE CBC W/AUTO DIFF WBC Reviewed 12/16/2016 12:00 AM COMPREHEN METABOLIC PANEL Reviewed 12/16/2016 12:00 AM LIPID PANEL Reviewed 12/28/2016 12:00 AM THERAPEUTIC PROPHYLACTIC/DX INJECTION SUBQ/IM Reviewed 12/28/2016 12:00 AM Decadron 8mg Injection, [facility] Medicare Reviewed 12/28/2016 12:00 AM Depo-Medrol 80mg Injection, [facility] Medicare Reviewed 04/12/2017 12:00 AM LIPID PANEL Returned 04/11/2017 12:00 AM THERAPEUTIC PROPHYLACTIC/DX INJECTION SUBQ/IM Reviewed 04/11/2017 12:00 AM Decadron 8mg Injection, [facility] Medicare Reviewed 04/11/2017 12:00 AM Depo-Medrol 80mg Injection, [facility] Medicare Reviewed 05/17/2012 12:00 AM THER/PROPH/DIAG INJ SC/IM Reviewed 05/17/2012 12:00 AM Decadron, Per [address] [facility]# [address]-00 Reviewed 05/17/2012 12:00 AM Depo-Medrol, Per [address] [facility]#7638-8415-69 Reviewed 05/17/2012 12:00 AM Toradol [address] [facility]#6544-0177-08 Reviewed 06/07/2017 12:00 AM THERAPEUTIC PROPHYLACTIC/DX INJECTION SUBQ/IM Reviewed 06/07/2017 12:00 AM Decadron 8mg Injection, [facility] Medicare Reviewed 06/07/2017 12:00 AM Depo-Medrol 80mg Injection, [facility] Medicare Reviewed 08/30/2017 12:00 AM THERAPEUTIC PROPHYLACTIC/DX INJECTION SUBQ/IM Reviewed 08/30/2017 12:00 AM Rocephin 1 gram Injection, [facility] Medicare Reviewed 09/19/2017 12:00 AM THERAPEUTIC PROPHYLACTIC/DX INJECTION SUBQ/IM Reviewed 09/19/2017 12:00 AM Decadron 8mg Injection, [facility] Medicare Reviewed 09/19/2017 12:00 AM Depo-Medrol 80mg Injection, [facility] Medicare Reviewed 09/19/2017 12:00 AM Rocephin 1 gram Injection, [facility] Medicare Reviewed 01/18/2013 12:00 AM THER/PROPH/DIAG INJ SC/IM Reviewed 01/18/2013 12:00 AM Decadron, Per [address] [facility]# [address]-77 Reviewed 01/18/2013 12:00 AM Depo-Medrol, Per [address] [facility]#1081-6608-25 Reviewed 01/18/2013 12:00 AM Toradol [address] [facility]#0448-5390-77 Reviewed 02/10/2010 12:00 AM ROUTINE VENIPUNCTURE Reviewed [...] SC/IM Reviewed 01/18/2011 12:00 AM Decadron Inj.8mg-([facility]) [facility] #[id number] Reviewed 01/18/2011 12:00 AM Depo-Medrol 80 Mg Im/[facility] [id number] Reviewed Results Summary Date and Description Results [...] 10:08AM Medication management Apr 04 2018 10:08AM Payers Insurance Name Company Name Plan Name Plan Number Policy Number Policy Group Number Start Date Medicare RH Medicare RHC [id number] N/A [place] [employer] Program [place] [employer] Prog [id number] N/A zzzTest Medicare A Test Medicare A [id number] N/A [facility] - [facility] - [facility] Comm [id number] N/A Medicare Part A Medicare - Lab/Xray [id number] N/A [facility] Asst Prog - RHC [facility] Asst Prog - RHC [id number] N/A Medicare Part A Medicare Part A [id number] N/A Medicare Part B Medicare Of [place] [id number] N/A History of Encounters Visit Date Visit Type Provider 04/04/2018 Office visit MAIKEL SALTER PA 01/31/2018 [...] MAIKEL SALTER PA 12/28/2016 Office visit MAIKEL HASSAN 07/26/2016 Office visit MAIKEL SALTER PA 06/24/2016 Office visit MAIKEL SALTER PA 10/23/2015 Office visit MAIKEL HASSAN 07/29/2015 Office visit MAIKEL SALTER PA 06/09/2015 Office visit MAIKEL SALTER PA 05/20/2015 Office visit MAIKEL SALTER PA 06/11/2014 Office visit MAIKEL SALTER PA 05/30/2014 Office visit MAIKEL SALTER PA 01/17/2014 Office visit MAIKEL SALTER PA 12/03/2013 [facility] Melissa Seth MD 10/01/2013 Office visit MAIKEL SALTER PA 06/11/2013 Office visit MAIKEL SALTER PA 05/28/2013 [facility] Melissa Seth MD 02/05/2013 Office visit MAIKEL SALTER PA 01/18/2013 Office visit MAIKEL SALTER PA 06/08/2012 Office visit MAIKEL SALTER PA 05/17/2012 Office visit MAIKEL SALTER PA 10/29/2011 Office visit MAIKEL SALTER PA 09/16/2011 Office visit MAIKEL HASSAN 09/16/2011 [facility] Melissa Seth MD 07/02/2011 Office visit MAIKEL HASSAN 05/06/2011 Office visit Maikel SAMANOC 01/18/2011 Office visit Maikel SAMANOC 01/15/2011 Office visit Maikel SAMANOC 06/18/2010 Office visit Maikel Salter PA-C 03/09/2010 Office visit Maikel Salter PA-C 02/10/2010 Office visit Maikel Salter PA-C
--- OUTSIDE RECORDS SUMMARY | 2019-02-06 09:29 | XMS REPORT ---
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 Name Role Phone MAIKEL SALTER PCP [...] oral tablet 03/31/2018 TAKE 1 TABLET DAILY Name Start Date Expiration Date SIG Comments [...] bite of calf, left, sequela Active 01/23/2017 Vital Signs Date Time BP-Sys(mm[Hg] BP-Cee(mm[Hg]) HR(bpm) [...] Reviewed 05/06/2011 12:00 AM Decadron Inj.1mg-([facility]) [facility] #[id number] Reviewed 05/06/2011 12:00 AM Depo-Medrol 80 Mg Im/[facility] [id number] Reviewed 05/06/2011 12:00 AM Rocephin, Per 250MG - 1 Gram Vial [facility] [id number] Reviewed 10/29/2011 12:00 AM ROUTINE VENIPUNCTURE Reviewed 10/29/2011 12:00 AM COMPLETE CBC W/AUTO DIFF WBC Reviewed 10/29/2011 12:00 AM COMPREHEN METABOLIC PANEL Reviewed 10/29/2011 12:00 AM ASSAY THYROID STIM HORMONE Reviewed 06/24/2016 12:00 AM Decadron, Per 1 Mg [facility]# [address]-61 Reviewed 06/24/2016 12:00 AM Depo-Medrol, Per 80 Mg [facility]#2319-2151-04 Reviewed 06/24/2016 12:00 AM Rocephin 1 gram [facility]#5589-1512-65 Reviewed 07/26/2016 12:00 AM THER/PROPH/DIAG INJ SC/IM Reviewed 07/26/2016 12:00 AM Decadron 8mg Injection, [facility] Medicare Reviewed 07/26/2016 12:00 AM Depo-Medrol 80mg Injection, [facility] Medicare Reviewed 07/26/2016 12:00 AM Rocephin 1 gram Injection, [facility] Medicare Reviewed 12/16/2016 12:00 AM COMPLETE CBC W/AUTO DIFF WBC Reviewed 12/16/2016 12:00 AM COMPREHEN METABOLIC PANEL Reviewed 12/16/2016 12:00 AM LIPID PANEL Reviewed 12/28/2016 12:00 AM THERAPEUTIC PROPHYLACTIC/DX INJECTION SUBQ/IM Reviewed 12/28/2016 12:00 AM Decadron 8mg Injection, [facility] Medicare Reviewed 12/28/2016 12:00 AM Depo-Medrol 80mg Injection, [facility] Medicare Reviewed 04/12/2017 12:00 AM LIPID PANEL Returned 04/11/2017 12:00 AM THERAPEUTIC PROPHYLACTIC/DX INJECTION SUBQ/IM Reviewed 04/11/2017 12:00 AM Decadron 8mg Injection, [facility] Medicare Reviewed 04/11/2017 12:00 AM Depo-Medrol 80mg Injection, [facility] Medicare Reviewed 05/17/2012 12:00 AM THER/PROPH/DIAG INJ SC/IM Reviewed 05/17/2012 12:00 AM Decadron, Per 1 Mg [facility]# [address]-14 Reviewed 05/17/2012 12:00 AM Depo-Medrol, Per 80 Mg [facility]#4966-0941-97 Reviewed 05/17/2012 12:00 AM Toradol 60 Mg [facility]#6529-2633-75 Reviewed 06/07/2017 12:00 AM THERAPEUTIC PROPHYLACTIC/DX INJECTION SUBQ/IM Reviewed 06/07/2017 12:00 AM Decadron 8mg Injection, [facility] Medicare Reviewed 06/07/2017 12:00 AM Depo-Medrol 80mg Injection, [facility] Medicare Reviewed 08/30/2017 12:00 AM THERAPEUTIC [...] 01/18/2013 12:00 AM Decadron, Per 1 Mg [facility]# [address]-04 Reviewed 01/18/2013 12:00 AM Depo-Medrol, Per 80 Mg [facility]#5263-3950-07 Reviewed 01/18/2013 12:00 AM Toradol 60 Mg [facility]#9483-2706-37 Reviewed 02/10/2010 12:00 AM ROUTINE VENIPUNCTURE Reviewed [...] Reviewed 01/18/2011 12:00 AM Decadron Inj.8mg-([facility]) [facility] #[id number] Reviewed 01/18/2011 12:00 AM Depo-Medrol 80 Mg Im/[facility] [id number] Reviewed Results Summary Date and Description Results [...] 2:55PM Post-nasal drainage May 06 2011 2:55PM Blood In Stool, Occult Jul 02 2011 [...] on imaging study Apr 05 2018 10:03AM Payers Insurance Name Company Name Plan Name Plan Number Policy Number Policy Group Number Start Date Medicare RHC Medicare RHC [id number] N/A [place] [employer] [place] [employer] [place] [id number] N/A zzzTest Medicare A Test Medicare A [id number] N/A [facility] - [facility] - [facility] Comm [id number] N/A Medicare Part A Medicare - Lab/Xray [id number] N/A [place] [employer] - RHC [place] [employer] Prog - [facility] [id number] N/A Medicare Part A Medicare Part A [id number] N/A Medicare Part B Medicare Of [place] [id number] N/A History of Encounters Visit Date Visit [...] MAIKEL SALTER PA 01/17/2014 Office visit MAIKEL HASSAN 12/03/2013 [facility] Melissa Seth MD 10/01/2013 Office visit MAIKEL SALTER PA 06/11/2013 Office visit MAIKEL SALTER PA 05/28/2013 Fernando Seth MD 02/05/2013 Office visit MAIKEL SALTER PA 01/18/2013 Office visit MAIKEL SALTER PA 06/08/2012 Office visit MAIKEL SALTER PA 05/17/2012 Office visit MAIKEL SALTER PA 10/29/2011 Office visit MAIKEL SALTER PA 09/16/2011 Office visit MAIKEL SALTER PA 09/16/2011 [facility] Melissa Seth MD 07/02/2011 Office visit MAIKEL SALTER PA 05/06/2011 Office visit Maikel Salter PA-C 01/18/2011 Office visit Maikel Salter PA-C 01/15/2011 Office visit Maikel Salter PA-C 06/18/2010 Office visit Maikel Salter PA-C 03/09/2010 Office visit Maikel Salter PA-C 02/10/2010 Office visit Maikel Salter PA-C
--- NOTE | 2019-02-06 09:30 | NUR ---
Pt unresponsive. Ex- reports pt was approached in the past about code status, and pt "wanted nothing to do with that." Ex- believes pt is a full code.
--- OUTSIDE RECORDS SUMMARY | 2019-02-06 09:30 | XMS REPORT ---
Author MAIKEL Nicole [facility] Address [address] [place], [place] [id number] Care Team Providers Care Public Area Attendant Name Role Phone MAIKEL SALTER PCP Unavailable MAIKEL SALTER PreferredProvider Unavailable Allergies and Adverse Reactions Name Reaction Notes NO KNOWN DRUG ALLERGIES Plan of Treatment Planned Activity Comments Planned Date Planned Time Plan/Goal Lipid Profile 04/05/2016 12:00 AM Chest PA and Lateral - Main 03/24/2017 12:00 AM Injection,Subcutaneous/Intramuscul, [facility] Medicare 04/11/2017 12:00 AM Lipid Profile 04/12/2017 12:00 AM Medications Active Name Start Date [...] (25 mg) by oral route once daily hydrochlorothiazide 25 mg oral tablet 08/29/2014 take 1 tablet (25 mg) by oral route once daily for 30 days metoprolol succinate 25 mg oral tablet extended release 24 hr 07/07/2015 take 1 tablet (25 mg) by oral route once daily promethazine-codeine 6.25-10 mg/5 mL oral syrup 06/24/2016 take 5 milliliters by oral route every 6 hours as needed, not to exceed 30 mL in 24 hours ipratropium-albuterol 0.5 mg-3 mg(2.5 mg base)/3 mL inhalation solution for nebulization 07/09/2016 inhale 3 milliliters by nebulization route 4 times per day for COPD Symbicort 160-4.5 mcg/actuation inhalation HFA aerosol inhaler 06/24/2016 inhale 2 puffs by inhalation route 2 times per day in the morning and evening prednisone 20 mg oral tablet 12/28/2016 4 x 2 days, 3 x 2 days, 2 x 2 days 1 x 2 days Keflex 500 mg oral capsule 02/24/2017 take 1 capsule (500 mg) by oral route every 12 hours hydrochlorothiazide 25 mg oral tablet 03/28/2017 TAKE 1 TABLET DAILY metoprolol succinate 25 mg oral tablet extended release 24 hr 03/28/2017 TAKE 1 TABLET DAILY albuterol sulfate 1.25 mg/3 mL inhalation solution for nebulization 03/31/2017 inhale 3 milliliters (1.25 mg) via nebulizer by inhalation route 4 times per day DX J44.9 Name Start Date Expiration Date SIG Comments [...] 10 days Levaquin 500 mg oral tablet 03/28/2017 04/07/2017 take 1 tablet (500 mg) by oral route once daily for 10 days Discontinued Name Start Date [...] tablet 08/29/2014 07/07/2015 TAKE 1 TABLET DAILY Augmentin 875-125 mg oral tablet 01/18/2017 01/23/2017 take 1 tablet by oral route every 12 hours for 7 days Problem List Description Status Onset Chronic Obstructive [...] HC BMI BSA BMI Percentile O2 Sat(%) 04/11/2017 3:29:00 PM 128 mmHg 80 mmHg 68 bpm 16 rpm 98 F 144 lbs 63 in 25.51 kg/m2 1.70 m2 93 % 02/01/2017 11:37:00 AM 118 mmHg 72 mmHg 96 bpm 16 rpm 97.4 F 141 lbs 63 in 24.9768 kg/m 1.6861 m 91 % 01/21/2017 8:55:00 AM 105 mmHg 60 mmHg 96 bpm 18 rpm 95.8 F 142 lbs 63 in 25.15 kg/m2 1.69 m2 95 % 01/18/2017 12:10:00 PM 122 mmHg 68 mmHg 76 bpm 18 rpm 98 F 143 lbs 63 in 25.3311 kg/m 1.698 m 98 % 12/28/2016 4:03:00 PM 118 mmHg 64 mmHg 106 bpm 18 rpm 97.4 F 137 lbs 63 in 24.27 kg/m2 1.66 m2 98 % 07/26/2016 12:11:00 PM 120 mmHg 84 mmHg 110 bpm 16 rpm 98.1 F 130 lbs 63 in 23.0282 kg/m 1.619 m 90 % 06/24/2016 3:57:00 PM 148 mmHg 72 mmHg 88 bpm 16 rpm 98.2 F 132 lbs 63 in 23.38 kg/m2 1.63 m2 98 % 10/23/2015 2:12:00 PM 122 mmHg 60 mmHg 106 bpm 18 rpm 97 F 137 lbs 63 in 24.2682 kg/m 1.662 m 93 % 07/29/2015 2:33:00 PM 120 mmHg 75 mmHg 102 bpm 16 rpm 98.2 F 137 lbs 63 in 24.27 kg/m2 1.66 m2 94 % 06/09/2015 2:46:00 PM 130 mmHg 80 mmHg 96 bpm 16 rpm 97.9 F 141 lbs 66 in 22.7578 kg/m 1.7258 m 98 % 05/20/2015 9:37:00 AM 140 mmHg 78 mmHg 110 bpm 16 rpm 97.9 F 141 lbs 63 in 24.98 kg/m2 1.69 m2 95 % 06/11/2014 2:25:00 PM 132 mmHg 66 mmHg 92 bpm 24 rpm 97.5 F 147 lbs 63 in 26.0396 kg/m 1.7216 m 92 % 05/30/2014 9:45:00 AM 132 mmHg 64 mmHg 74 bpm 24 rpm 97.7 F 146 lbs 63 in 25.86 kg/m2 1.72 m2 92 % 01/17/2014 2:31:00 PM 136 mmHg 68 mmHg 90 bpm 22 rpm 98.2 F 148 lbs 63 in 26.2168 kg/m 1.7274 m 95 % 10/01/2013 3:19:00 PM 124 mmHg 70 mmHg 64 bpm 20 rpm 97.8 F 147 lbs 63 in 26.04 kg/m2 1.72 m2 95 % 06/11/2013 10:31:00 AM 140 mmHg 70 mmHg 92 bpm 24 rpm 97.8 F 143 lbs 63 in 25.3311 kg/m 1.698 m 95 % 02/05/2013 2:51:00 PM 130 mmHg 78 mmHg 90 bpm 98.2 F 168 lbs 65 in 27.96 kg/m2 1.87 m2 02/05/2013 2:43:00 PM 110 mmHg 76 mmHg 103 bpm 96.6 F 137 lbs 63 in 24.2682 kg/m 1.662 m 01/18/2013 9:50:00 AM 150 mmHg 66 mmHg 108 bpm 20 rpm 97.8 F 138 lbs 63 in 24.45 kg/m2 1.67 m2 94 % 06/08/2012 9:08:00 AM 110 mmHg 60 mmHg 88 bpm 18 rpm 97.5 F 142 lbs 63 in 25.1539 kg/m 1.6921 m 94 % 05/17/2012 9:33:00 AM 130 mmHg 60 mmHg 98 bpm 18 rpm 146 lbs 63 in 25.86 kg/m2 1.72 m2 95 % 09/16/2011 2:31:00 PM 116 mmHg 76 mmHg 88 bpm 140 lbs 63 in 24.7996 kg/m 1.6801 m 96 % 07/02/2011 10:02:00 AM 122 mmHg [...] 95 % Social History Name Description Comments Tobacco Never smoker denies alcohol use History of Procedures Date Ordered Description Order Status 05/06/2011 12:00 AM THER/PROPH/DIAG INJ SC/IM Reviewed 05/06/2011 12:00 AM Decadron Inj.1mg-([facility]) [facility][Note 2] #[id number] Reviewed 05/06/2011 12:00 AM Depo-Medrol 80 Mg Im/[facility] [id number] Reviewed 05/06/2011 12:00 AM Rocephin, Per 250MG - 1 Gram Vial [facility] [id number]-Pr [place] Reviewed 10/29/2011 12:00 AM ROUTINE VENIPUNCTURE Reviewed 10/29/2011 12:00 AM COMPLETE CBC W/AUTO DIFF WBC Reviewed 10/29/2011 12:00 AM COMPREHEN METABOLIC PANEL Reviewed 10/29/2011 12:00 AM ASSAY THYROID STIM HORMONE Reviewed 06/24/2016 12:00 AM Decadron, Per 1 Mg [facility]# [address]-73 Reviewed 06/24/2016 12:00 AM Depo-Medrol, Per 80 Mg [facility]#3010-3625-79 Reviewed 06/24/2016 12:00 AM Rocephin 1 gram [facility]#6971-2361-41 Reviewed 07/26/2016 12:00 AM THER/PROPH/DIAG INJ SC/IM Reviewed 07/26/2016 12:00 AM Decadron 8mg Injection, [facility] Medicare Reviewed 07/26/2016 12:00 AM Depo-Medrol 80mg Injection, [facility] Medicare Reviewed 07/26/2016 12:00 AM Rocephin 1 gram Injection, [facility] Medicare Reviewed 12/16/2016 12:00 AM COMPLETE CBC W/AUTO DIFF WBC Reviewed 12/16/2016 12:00 AM COMPREHEN METABOLIC PANEL Reviewed 12/16/2016 12:00 AM LIPID PANEL Reviewed 12/28/2016 12:00 AM THERAPEUTIC PROPHYLACTIC/DX INJECTION SUBQ/IM Reviewed 12/28/2016 12:00 AM Decadron 8mg Injection, [facility] Medicare Reviewed 12/28/2016 12:00 AM Depo-Medrol 80mg Injection, [facility] Medicare Reviewed 05/17/2012 12:00 AM THER/PROPH/DIAG INJ SC/IM Reviewed 05/17/2012 12:00 AM Decadron, Per 1 Mg [facility]# [address]-04 Reviewed 05/17/2012 12:00 AM Depo-Medrol, Per 80 Mg [facility]#3337-7456-89 Reviewed 05/17/2012 12:00 AM Toradol 60 Mg [facility]#3922-2795-79 Reviewed 01/18/2013 12:00 AM THER/PROPH/DIAG INJ SC/IM Reviewed 01/18/2013 12:00 AM Decadron, Per 1 Mg [facility]# [address]-31 Reviewed 01/18/2013 12:00 AM Depo-Medrol, Per 80 Mg [facility]#6284-3551-41 Reviewed 01/18/2013 12:00 AM Toradol 60 Mg [facility]#9856-4721-62 Reviewed 02/10/2010 12:00 AM ROUTINE VENIPUNCTURE Reviewed [...] SC/IM Reviewed 01/18/2011 12:00 AM Decadron Inj.8mg-([facility]) [facility][Note 2] #[id number] Reviewed 01/18/2011 12:00 AM Depo-Medrol 80 Mg Im/[facility] [id number] Reviewed Results Summary Date and Description Results [...] on imaging study Apr 12 2017 9:02AM Payers Insurance Name Company Name Plan Name Plan Number Policy Number Policy Group Number Start Date Medicare RHC Medicare RHC [id number] N/A [place] [employer] [place] [employer] Prog [id number] N/A zzzTest Medicare A Test Medicare A [id number] N/A [facility] - R[facility] - [facility] RHC Comm [id number] N/A Medicare Part A Medicare - Lab/Xray [id number] N/A [place] 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 - RHC [place] 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 - [facility] [id number] N/A Medicare Part A Medicare Part A [id number] N/A Medicare Part B Medicare Of [place] [id number] N/A History of Encounters Visit Date Visit Type Provider 04/12/2017 Laboratory MAIKEL HASSAN 04/11/2017 Office visit MAIKEL HASSAN 02/01/2017 Office visit MAIKEL HASSAN 01/21/2017 Office visit MAIKEL HASSAN 01/18/2017 Office visit MAIKEL HASSAN 12/28/2016 Office visit MAIKEL HASSAN 07/26/2016 Office visit MAIKEL HASSAN 06/24/2016 Office visit MAIKEL HASSAN 10/23/2015 Office visit MAIKEL HASSAN 07/29/2015 Office visit MAIKEL HASSAN 06/09/2015 Office visit MAIKEL HASSAN 05/20/2015 Office visit MAIKEL HASSAN 06/11/2014 Office visit MAIKEL HASSAN 05/30/2014 Office visit MAIKEL HASSAN 01/17/2014 Office visit MAIKEL HASSAN 12/03/2013 Hospital Melissa Seth MD 10/01/2013 Office visit MAIKEL HASASN 06/11/2013 Office visit MAIKEL HASSAN 05/28/2013 Fernando Seth MD 02/05/2013 Office visit MAIKEL HASSAN 01/18/2013 Office visit MAIKEL HASSAN 06/08/2012 Office visit MAIKEL HASSAN 05/17/2012 Office visit MAIKEL HASSAN 10/29/2011 Office visit MAIKEL HASSAN 09/16/2011 Office visit MAIKEL HASSAN 09/16/2011 Hospital [facility] Manish Seth MD 07/02/2011 Office visit MAIKEL HASSAN 05/06/2011 Office visit Maikel Salter PA-C 01/18/2011 Office visit Maikel Salter PA-C 01/15/2011 Office visit Maikel Salter PA-C 06/18/2010 Office visit Maikel Salter PA-C 03/09/2010 Office visit Makiel Salter PA-C 02/10/2010 Office visit Maikel Salter PA-C
--- OUTSIDE RECORDS SUMMARY | 2019-02-06 09:31 | XMS REPORT ---
Author Author MAIKEL SALTER [facility] Address [address] [place], [place] [id number] Care Team Providers Care Safety Consultant Name Role Phone MAIKEL SALTER PCP MAIKEL SALTER PreferredProvider Allergies and Adverse Reactions Name Reaction Notes NO KNOWN DRUG ALLERGIES Plan of Treatment Planned Activity Comments Planned Date Planned Time Plan/Goal Lipid Profile 04/05/2016 12:00 AM Chest PA and Lateral - Main 03/24/2017 12:00 AM Medications Active Name Start Date [...] per day in the morning and evening metoprolol succinate 25 mg oral tablet extended release 24 hr 06/21/2017 TAKE 1 TABLET DAILY ipratropium-albuterol 0.5 mg-3 mg(2.5 mg base)/3 mL inhalation solution for nebulization 09/19/2017 inhale 3 milliliters by nebulization route 4 times per day for COPD Sudogest 30 mg oral tablet 10/21/2017 take 1 tablets (60 mg) by oral route every 6 hours as needed hydrochlorothiazide 25 mg oral tablet 11/08/2017 TAKE 1 TABLET DAILY Name Start Date [...] 2 times per day for 10 days prednisone 20 mg oral tablet 09/19/2017 10/01/2017 2X4 days 1X4 days 2X4 days Zithromax Z-Travon 250 mg oral tablet 11/29/2017 12/04/2017 take 2 tablets (500 mg) by oral route once daily for 1 day then 1 tablet (250 mg) by oral route once daily for 4 days Discontinued Name Start Date Discontinued Date [...] oral route once daily for 10 days Problem List Description Status Onset Chronic [...] HC BMI BSA BMI Percentile O2 Sat(%) 11/29/2017 3:28:00 PM 122 mmHg 68 mmHg [...] rpm 98.2 F 145 lbs 62 in 26.5206 kg/m 1.6962 m 95 % 04/11/2017 3:29:00 PM 128 mmHg [...] Reviewed 05/06/2011 12:00 AM Decadron Inj.1mg-([facility]) [facility] #[id number] Reviewed 05/06/2011 12:00 AM Depo-Medrol 80 Mg Im/[facility] [id number] Reviewed 05/06/2011 12:00 AM Rocephin, Per 250MG - 1 Gram Vial [facility] [id number]-Kp [place] Reviewed 10/29/2011 12:00 AM ROUTINE VENIPUNCTURE Reviewed 10/29/2011 12:00 AM COMPLETE CBC W/AUTO DIFF WBC Reviewed 10/29/2011 12:00 AM COMPREHEN METABOLIC PANEL Reviewed 10/29/2011 12:00 AM ASSAY THYROID STIM HORMONE Reviewed 06/24/2016 12:00 AM Decadron, Per 1 Mg [facility]# [address]-86 Reviewed 06/24/2016 12:00 AM Depo-Medrol, Per 80 Mg [facility]#5197-1980-33 Reviewed 06/24/2016 12:00 AM Rocephin 1 gram [facility]#8434-0916-94 Reviewed 07/26/2016 12:00 AM THER/PROPH/DIAG INJ SC/IM [...] Reviewed 12/28/2016 12:00 AM Decadron 8mg Injection, [facility] Medicare Reviewed 12/28/2016 12:00 AM Depo-Medrol 80mg Injection, [facility] Medicare Reviewed 04/12/2017 12:00 AM LIPID PANEL Returned 04/11/2017 12:00 AM THERAPEUTIC PROPHYLACTIC/DX INJECTION SUBQ/IM Reviewed 04/11/2017 12:00 AM Decadron 8mg Injection, [facility] Medicare Reviewed 04/11/2017 12:00 AM Depo-Medrol 80mg Injection, [facility] Medicare Reviewed 05/17/2012 12:00 AM THER/PROPH/DIAG INJ SC/IM Reviewed 05/17/2012 12:00 AM Decadron, Per 1 Mg [facility]# [address]-20 Reviewed 05/17/2012 12:00 AM Depo-Medrol, Per 80 Mg [facility]#2666-9236-15 Reviewed 05/17/2012 12:00 AM Toradol 60 Mg [facility]#3951-0646-85 Reviewed 06/07/2017 12:00 AM THERAPEUTIC PROPHYLACTIC/DX INJECTION [...] 01/18/2013 12:00 AM Decadron, Per 1 Mg [facility]# [address]-79 Reviewed 01/18/2013 12:00 AM Depo-Medrol, Per 80 Mg [facility]#0915-4666-09 Reviewed 01/18/2013 12:00 AM Toradol 60 Mg [facility]#5305-2110-37 Reviewed 02/10/2010 12:00 AM ROUTINE VENIPUNCTURE Reviewed [...] SC/IM Reviewed 01/18/2011 12:00 AM Decadron Inj.8mg-([facility] #[id number] Reviewed 01/18/2011 12:00 AM Depo-Medrol 80 Mg Im/[facility] [id number] Reviewed Results Summary Date and Description Results [...] obstructive pulmonary disease) Nov 29 2017 3:29PM Payers Insurance Name Company Name Plan Name Plan Number Policy Number Policy Group Number Start Date Medicare [facility] Medicare [facility] [id number] N/A [place] [employer] [place] [employer] Prog [id number] N/A zzzTest Medicare A Test Medicare A [id number] N/A [facility] - RHC - [facility] Comm [id number] N/A Medicare Part A Medicare - Lab/Xray [id number] N/A [place] 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 - RHC [place] Clinical 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 Prog - C [id number] N/A Medicare Part A Medicare Part A [id number] N/A Medicare Part B Medicare Of [place] [id number] N/A History of Encounters Visit Date Visit Type Provider 11/29/2017 Office visit MAIKEL HASSAN 09/19/2017 Office visit MAIKEL HASSAN 08/30/2017 Office visit MAIKEL SALTER PA 06/07/2017 Office visit MAIKEL HASSAN 04/12/2017 Voided MAIKEL SALTER PA 04/11/2017 Office visit MAIKEL HASSAN 02/01/2017 Office visit MAIKEL HASSAN 01/21/2017 Office visit MAIKEL SALTER PA 01/18/2017 Office visit MAIKEL HASSAN 12/28/2016 Office visit MAIKEL HASSAN 07/26/2016 Office visit MAIKEL HASSAN 06/24/2016 Office visit MAIKEL HASSAN 10/23/2015 Office visit MAIKEL HASSAN 07/29/2015 Office visit MAIKEL HASSAN 06/09/2015 Office visit MAIKEL HASSAN 05/20/2015 Office visit MAIKEL HASSAN 06/11/2014 Office visit MAIKEL HASSAN 05/30/2014 Office visit MAIKEL HASSAN 01/17/2014 Office visit MAIKEL HASSAN 12/03/2013 [facility] Melissa Seth MD 10/01/2013 Office visit MAIKEL HASSAN 06/11/2013 Office visit MAIKEL HASSAN 05/28/2013 Fernando Seth MD 02/05/2013 Office visit MAIKEL HASSAN 01/18/2013 Office visit MAIKEL HASSAN 06/08/2012 Office visit MAIKEL HASSAN 05/17/2012 Office visit MAIKEL HASSAN 10/29/2011 Office visit MAIKEL HASSAN 09/16/2011 Office visit MAIKEL HASSAN 09/16/2011 [facility] Melissa Seth MD 07/02/2011 Office visit MAIKEL HASSAN 05/06/2011 Office visit Maikel HASSAN-C 01/18/2011 Office visit Maikel HASSAN-C 01/15/2011 Office visit Maikel SAMANOC 06/18/2010 Office visit Maikel HASSAN-C 03/09/2010 Office visit Maikel HASSAN-C 02/10/2010 Office visit Maikel Salter PA-C
--- OUTSIDE RECORDS SUMMARY | 2019-02-06 09:32 | XMS REPORT ---
Author MAIKEL Nicole [facility] Address [address] [place], [place] [id number] Care Team Providers Care Design Engineering Technician Name Role Phone MAIKEL SALTER PCP Unavailable MAIKEL SALTER PreferredProvider Unavailable Allergies and Adverse Reactions Name Reaction Notes NO KNOWN DRUG ALLERGIES Plan of Treatment Planned Activity Comments Planned Date Planned Time Plan/Goal Lipid Profile 04/05/2016 12:00 AM Medications Active Name Start Date [...] mg oral tablet extended release 24 hr 10/28/2016 TAKE 1 TABLET DAILY prednisone 20 mg oral tablet 12/28/2016 4 x 2 days, 3 x 2 days, 2 x 2 days 1 x 2 days hydrochlorothiazide 25 mg oral tablet 01/18/2017 TAKE 1 TABLET DAILY Bactrim DS 800-160 mg oral tablet 01/21/2017 01/31/2017 take 1 tablet by oral route 2 times a day for 10 days Name Start Date [...] 3 times per day for 10 days Levaquin 500 mg oral tablet 12/28/2016 01/07/2017 take 1 tablet (500 mg) by oral [...] HC BMI BSA BMI Percentile O2 Sat(%) 01/21/2017 8:55:00 AM 105 mmHg 60 mmHg [...] Reviewed 05/06/2011 12:00 AM Decadron Inj.1mg-([facility]) [facility] #[id number] Reviewed 05/06/2011 12:00 AM Depo-Medrol 80 Mg Im/[facility] [id number] Reviewed 05/06/2011 12:00 AM Rocephin, Per 250MG - 1 Gram Vial [facility] [id number]-Be [facility] Reviewed 10/29/2011 12:00 AM ROUTINE VENIPUNCTURE Reviewed 10/29/2011 12:00 AM COMPLETE CBC W/AUTO DIFF WBC Reviewed 10/29/2011 12:00 AM COMPREHEN METABOLIC PANEL Reviewed 10/29/2011 12:00 AM ASSAY THYROID STIM HORMONE Reviewed 06/24/2016 12:00 AM Decadron, Per 1 Mg [facility]# [id number] Reviewed 06/24/2016 12:00 AM Depo-Medrol, Per 80 Mg [facility]#2744-3656-12 Reviewed 06/24/2016 12:00 AM Rocephin 1 gram [facility]#3031-7021-46 Reviewed 07/26/2016 12:00 AM THER/PROPH/DIAG INJ SC/IM Reviewed 07/26/2016 12:00 AM Decadron 8mg Injection, [facility] Medicare Reviewed 07/26/2016 12:00 AM Depo-Medrol 80mg Injection, [facility] Medicare Reviewed 07/26/2016 12:00 AM Rocephin 1 gram Injection, [facility] Medicare Reviewed 12/16/2016 12:00 AM COMPLETE CBC W/AUTO DIFF WBC Reviewed 12/16/2016 12:00 AM COMPREHEN METABOLIC PANEL Reviewed 12/16/2016 12:00 AM LIPID PANEL Reviewed 12/28/2016 12:00 AM THERAPEUTIC PROPHYLACTIC/DX INJECTION SUBQ/IM Reviewed 12/28/2016 12:00 AM Decadron 8mg Injection, [facility] Medicare Reviewed 12/28/2016 12:00 AM Depo-Medrol 80mg Injection, [facility] Medicare Reviewed 05/17/2012 12:00 AM THER/PROPH/DIAG INJ SC/IM Reviewed 05/17/2012 12:00 AM Decadron, Per 1 Mg [facility]# [address]-80 Reviewed 05/17/2012 12:00 AM Depo-Medrol, Per 80 Mg [facility]#8949-7243-14 Reviewed 05/17/2012 12:00 AM Toradol 60 Mg [facility]#9160-6174-22 Reviewed 01/18/2013 12:00 AM THER/PROPH/DIAG INJ SC/IM Reviewed 01/18/2013 12:00 AM Decadron, Per 1 Mg [facility]# [address]-60 Reviewed 01/18/2013 12:00 AM Depo-Medrol, Per 80 Mg [facility]#7210-8805-47 Reviewed 01/18/2013 12:00 AM Toradol 60 Mg [facility]#[id number] Reviewed 02/10/2010 12:00 AM ROUTINE VENIPUNCTURE Reviewed [...] SC/IM Reviewed 01/18/2011 12:00 AM Decadron Inj.8mg-([facility]) [facility] #[id number] Reviewed 01/18/2011 12:00 AM Depo-Medrol 80 Mg Im/[facility] [id number] Reviewed Results Summary Date and Description Results 01/15/2011 1:52 PM WBC 8.6 RBC 4.66 HGB 13.20 g/dLHCT 42.10 %MCV 90.0 fLMCH 28.30 pgMCHC 31.40 g/dLRDW SD 44 RDW CV 13.60 %MPV 10.90 fLPLT 383 NRBC# 0.00 NRBC% 0.0 %NEUT 68.0 %%LYMP 20.30 %%MONO 9.30 %%EOS 2.20 %%BASO 0.20 %#NEUT 5.81 #LYMP 1.74 #MONO 0.80 #EOS 0.19 #BASO 0.02 MANUAL DIFF NOT IND 01/15/2011 1:53 PM TRIGLYCERIDES 155.0 mg/dLCHOLESTEROL 248.0 [...] 8:56AM Medication management Jan 21 2017 8:56AM Payers Insurance Name Company Name Plan Name Plan Number Policy Number Policy Group Number Start Date Medicare [facility] Medicare [facility] [id number] N/A [place] Medical [employer] Program [place] Medical [place] Prog [id number] N/A zzzTest Medicare A Test Medicare A [id number] N/A [facility] - [facility] - [facility] Comm [id number] N/A Medicare Part A Medicare - Lab/Xray [id number] N/A [place] 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 - RHC [place] 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 - [facility] [id number] N/A Medicare Part A Medicare Part A [id number] N/A Medicare Part B Medicare Of [place] [id number] N/A History of Encounters Visit Date Visit Type Provider 01/21/2017 Office visit MAIKEL HASSAN 01/18/2017 Office visit MAIKEL HASSAN 12/28/2016 Office visit MAIKEL SALTER PA 07/26/2016 Office visit MAIKEL SALTER PA 06/24/2016 Office visit MAIKEL SALTER PA 10/23/2015 Office visit MAIKEL SALTER PA 07/29/2015 Office visit MAIKEL SALTER PA 06/09/2015 Office visit MAIKEL SALTER PA 05/20/2015 Office visit MAIKEL SALTER PA 06/11/2014 Office visit MAIKEL SALTER PA 05/30/2014 Office visit MAIKEL SALTER PA 01/17/2014 Office visit MAIKEL SALTER PA 12/03/2013 [facility] Melissa Seth MD 10/01/2013 Office visit MAIKEL SALTER PA 06/11/2013 Office visit MAIKEL SALTER PA 05/28/2013 [facility] Melissa Seth MD 02/05/2013 Office visit MAIKEL SALTER PA 01/18/2013 Office visit MAIKEL SALTER PA 06/08/2012 Office visit MAIKEL SALTER PA 05/17/2012 Office visit MAIKEL SALTER PA 10/29/2011 Office visit MAIKEL SALTER PA 09/16/2011 Office visit MAIKEL SALTER PA 09/16/2011 [facility] Melissa Seth MD 07/02/2011 Office visit MAIKEL SALTER PA 05/06/2011 Office visit Maikel Salter PA-C 01/18/2011 Office visit Maikel Salter PA-C 01/15/2011 Office visit Maikel Salter PA-C 06/18/2010 Office visit Maikel Salter PA-C 03/09/2010 Office visit Maikel Salter PA-C 02/10/2010 Office visit Maikel Salter PA-C
[2019-02-06] MEDS ORDERED: LOSA50TA63 (09:33)
--- OUTSIDE RECORDS SUMMARY | 2019-02-06 09:33 | XMS REPORT ---
Author Author MAIKEL SALTER [facility] Address [address] [place], [place] [address] Care Team Providers Care Brickmason Apprentice Name Role Phone MAIKEL SALTER PCP Unavailable Allergies and Adverse Reactions Name Reaction Notes NO KNOWN DRUG ALLERGIES Plan of Treatment Not available. Medications Active Name Start Date Estimated Completion Date SIG Comments Proctofoam 1 % topical foam 07/02/2011 apply by external route daily Calcium 600 + D(3) 600 mg(1,500mg) -200 unit oral tablet take 2 tablets by oral route daily Aerochamber 10/01/2013 Use with inhaler as directed Symbicort 160-4.5 mcg/actuation inhalation HFA aerosol inhaler 10/02/2013 inhale 2 puffs by inhalation route 2 times per day in the morning and evening pravastatin 20 mg oral tablet take 1 tablet (20 mg) by oral route once daily Toprol XL 25 mg oral tablet extended release 24 hr take 1 tablet (25 mg) by oral route once daily ipratropium-albuterol 0.5 mg-3 mg(2.5 mg base)/3 mL inhalation solution for nebulization 06/12/2014 inhale 3 milliliters by nebulization route 4 times per day for COPD hydrochlorothiazide 25 mg oral tablet 08/29/2014 take 1 tablet (25 mg) by oral route once daily for 30 days metoprolol succinate 25 mg oral tablet extended release 24 hr 07/07/2015 take 1 tablet (25 mg) by oral route once daily Name [...] by rectal route 2 times per day hydrochlorothiazide 25 mg oral tablet 08/29/2014 07/07/2015 TAKE 1 TABLET DAILY Problem List Description Status Onset Chronic Obstructive Pulmonary Disease Active Hyperlipidemia Active Anxiety Disorder Active 06/12/2013 Pain in joint; Hip Active 01/22/2014 Pulmonary nodule seen on imaging study Active 06/12/2014 Exercise hypoxemia Active 06/12/2014 Vital Signs Date Time BP-Sys(mm[Hg] BP-Cee(mm[Hg]) HR(bpm) RR(rpm) Temp WT HT HC BMI BSA BMI Percentile O2 Sat(%) 07/29/2015 2:33:00 PM 120 mmHg 75 mmHg [...] SC/IM Reviewed 05/06/2011 12:00 AM Decadron Inj.1mg-([facility]) [facility] #[id number] Reviewed 05/06/2011 12:00 AM Depo-Medrol 80 Mg Im/[facility] [id number] Reviewed 05/06/2011 12:00 AM Rocephin, Per 250MG - 1 Gram Vial [facility] [id number]-Oy [facility] Reviewed 10/29/2011 12:00 AM ROUTINE VENIPUNCTURE Reviewed 10/29/2011 12:00 AM COMPLETE CBC W/AUTO DIFF WBC Reviewed 10/29/2011 12:00 AM COMPREHEN METABOLIC PANEL Reviewed 10/29/2011 12:00 AM ASSAY THYROID STIM HORMONE Reviewed 05/17/2012 12:00 AM THER/PROPH/DIAG INJ SC/IM Reviewed 05/17/2012 12:00 AM Decadron, Per 1 Mg [facility]# [address]-91 Reviewed 05/17/2012 12:00 AM Depo-Medrol, Per 80 Mg [facility]#6933-7720-16 Reviewed 05/17/2012 12:00 AM Toradol 60 Mg [facility]#2821-4394-76 Reviewed 01/18/2013 12:00 AM THER/PROPH/DIAG INJ SC/IM Reviewed 01/18/2013 12:00 AM Decadron, Per 1 Mg [facility]# [address]-75 Reviewed 01/18/2013 12:00 AM Depo-Medrol, Per 80 Mg [facility]#7253-6525-01 Reviewed 01/18/2013 12:00 AM Toradol 60 Mg [facility]#6421-4849-60 Reviewed 02/10/2010 12:00 AM ROUTINE VENIPUNCTURE Reviewed 02/10/2010 12:00 AM COMPLETE CBC W/AUTO DIFF WBC Reviewed 02/10/2010 12:00 AM COMPREHEN METABOLIC PANEL Reviewed 02/10/2010 12:00 AM LIPID PANEL Reviewed 06/11/2014 12:00 AM CHEST X-RAY 4/> VIEWS Returned 01/15/2011 12:00 AM ROUTINE VENIPUNCTURE Reviewed 01/15/2011 12:00 AM COMPLETE CBC AUTOMATED Reviewed 01/15/2011 12:00 AM COMPREHEN METABOLIC PANEL Reviewed 01/15/2011 12:00 AM LIPID PANEL Reviewed 01/18/2011 12:00 AM THER/PROPH/DIAG INJ SC/IM Reviewed 01/18/2011 12:00 AM Decadron Inj.8mg-([facility]) [facility] #[id number] Reviewed 01/18/2011 12:00 AM Depo-Medrol 80 Mg Im/[facility] [id number] Reviewed Results Summary Data and Description Results 01/15/2011 1:52 PM WBC 8.6 RBC 4.66 HGB 13.20 g/dLHCT 42.10 %MCV 90.0 fLMCH 28.30 pgMCHC 31.40 g/dLRDW CV 13.60 %MPV 10.90 fLPLT 383 %NEUT 68.0 %%LYMP 20.30 %%MONO 9.30 %%EOS 2.20 %%BASO 0.20 %#NEUT 5.81 #LYMP 1.74 #MONO 0.80 #EOS 0.19 #BASO 0.02 01/15/2011 1:53 PM TRIGLYCERIDES 155.0 mg/dLCHOLESTEROL 248.0 mg/dLHDL 51.0 mg/dLLDL 168.0 mg/dLGLUCOSE 97.0 mg/dLSODIUM 139.0 mmol/LPOTASSIUM 3.70 mmol/LCHLORIDE 101.0 mmol/LCO2 27.0 mmol/LBUN 19.0 mg/dLCREATININE 0.90 mg/dLSGOT/AST 19.0 IU/LSGPT/ALT 11.0 IU/LALK PHOS 111.0 IU/LTOTAL PROTEIN 7.40 g/dLALBUMIN 4.20 g/dLTOTAL BILI 0.50 mg/dLCALCIUM 9.50 mg/dLeGFR >60 mL/min/1.73 m2 History Of Immunizations Not available. History of [...] 3:02PM Sinusitis, Acute Jun 18 2010 3:02PM Chronic Obstructive Pulmonary Disease Jan 15 2011 8:38AM Palpitations Jan 15 2011 8:38AM Cough Jan 18 2011 9:54AM Sinusitis, Acute Jan 18 2011 9:54AM Seasonal Allergies Jan 18 2011 9:54AM Post-nasal drainage Jan 18 2011 9:54AM Cough May 06 2011 2:55PM Seasonal Allergies [...] Obstructive Pulmonary Disease Jul 29 2015 2:39PM Payers Insurance Name Company Name Plan Name Plan Number Policy Number Policy Group Number Start Date Medicare Part A Medicare Part A [id number] N/A [facility] Comm [id number] N/A Medicare Part B Medicare Of [place] [id number] N/A [place] Medical Assistance [facility] Medical Assistance Prog [id number] N/A [facility] [id number] N/A History of Encounters Visit Date Visit Type Provider 07/29/2015 Office visit MAIKEL HASSAN 06/09/2015 Office visit MAIKEL HASSAN 05/20/2015 Office visit MAIKEL HASSAN 06/11/2014 Office visit MAIKEL HASSAN 05/30/2014 Office visit MAIKEL HASSAN 01/17/2014 Office visit MAIKEL HASSAN 12/03/2013 [facility] Melissa Seth MD 10/01/2013 Office visit MAIKEL HASSAN 06/11/2013 Office visit MAIKEL HASSAN 05/28/2013 [facility] Melissa Seth MD 02/05/2013 Office visit MAIKEL HASSAN 01/18/2013 Office visit MAIKEL HASSAN 06/08/2012 Office visit MAIKEL SALTER PA 05/17/2012 Office visit MAIKEL SALTER PA 10/29/2011 Office visit MAIKEL SALTER PA 09/16/2011 Office visit MAIKEL SALTER PA 09/16/2011 [facility] Melissa Seth MD 07/02/2011 Office visit MAIKEL SALTER PA 05/06/2011 Office visit Maikel Salter PA-C 01/18/2011 Office visit Maikel Salter PA-C 01/15/2011 Office visit Maikel Salter PA-C 06/18/2010 Office visit Maikel Salter PA-C 03/09/2010 Office visit Maikel Salter PA-C 02/10/2010 Office visit Maikel Salter PA-C
--- OUTSIDE RECORDS SUMMARY | 2019-02-06 09:34 | XMS REPORT ---
Author Author MAIKEL SALTER [facility] Address [address] [place], [place] [address] Care Team Providers Care Bread Dough Mixer Name Role Phone MAIKEL SALTER PCP Unavailable [...] oral route once daily for 30 days hydrochlorothiazide 25 mg oral tablet 08/29/2014 TAKE 1 TABLET DAILY Name Start Date [...] days Zithromax Z-Travon 250 mg oral tablet 04/24/2015 04/29/2015 take 2 tablets (500 mg) by oral [...] by rectal route 2 times per day Problem List Description Status Onset Chronic Obstructive Pulmonary Disease Active Hyperlipidemia Active Anxiety Disorder Active 06/12/2013 Pain in joint; Hip Active 01/22/2014 Pulmonary nodule seen on imaging study Active 06/12/2014 Exercise hypoxemia Active 06/12/2014 Vital Signs Date Time BP-Sys(mm[Hg] BP-Cee(mm[Hg]) HR(bpm) RR(rpm) Temp WT HT HC BMI BSA BMI Percentile O2 Sat(%) 05/20/2015 9:37:00 AM 140 mmHg 78 mmHg [...] 12:00 AM Decadron Inj.1mg-([facility]) [facility] #[id number] Reviewed 05/06/2011 12:00 AM Depo-Medrol 80 Mg Im/[facility] [id number] Reviewed 05/06/2011 12:00 AM Rocephin, Per 250MG - 1 Gram Vial [facility] [id number]-Ip [facility] Reviewed 10/29/2011 12:00 AM ROUTINE VENIPUNCTURE Reviewed 10/29/2011 12:00 AM COMPLETE CBC W/AUTO DIFF WBC Reviewed 10/29/2011 12:00 AM COMPREHEN METABOLIC PANEL Reviewed 10/29/2011 12:00 AM ASSAY THYROID STIM HORMONE Reviewed 05/17/2012 12:00 AM THER/PROPH/DIAG INJ SC/IM Reviewed 05/17/2012 12:00 AM Decadron, Per 1 Mg [facility]# [address]-27 Reviewed 05/17/2012 12:00 AM Depo-Medrol, Per 80 Mg [facility]#6744-2732-03 Reviewed 05/17/2012 12:00 AM Toradol 60 Mg [facility]#4798-5388-12 Reviewed 01/18/2013 12:00 AM THER/PROPH/DIAG INJ SC/IM Reviewed 01/18/2013 12:00 AM Decadron, Per 1 Mg [facility]# [address]-47 Reviewed 01/18/2013 12:00 AM Depo-Medrol, Per 80 Mg [facility]#5487-1259-83 Reviewed 01/18/2013 12:00 AM Toradol 60 Mg [facility]#7316-2456-74 Reviewed 02/10/2010 12:00 AM ROUTINE VENIPUNCTURE Reviewed [...] INJ SC/IM Reviewed 01/18/2011 12:00 AM Decadron Inj.8mg-() [facility] #[id number] Reviewed 01/18/2011 12:00 AM Depo-Medrol 80 Mg Im/[facility] [id number] Reviewed Results Summary Data and Description Results [...] Exercise hypoxemia 06/12/2014 Chronic Obstructive Pulmonary Disease Nov 4 2010 3:02PM Edema Jun 18 2010 3:02PM [...] 2:26PM Nail avulsion May 20 2015 9:38AM Payers Insurance Name Company Name Plan Name Plan Number Policy Number Policy Group Number Start Date Medicare Part A Medicare Part A [id number] N/A [facility] - [facility] - [facility] RHC Comm [id number] N/A Medicare Part B Medicare Of [place] [id number] N/A [place] Medical Assistance [facility] Medical Assistance Prog [id number] N/A [facility] [id number] N/A History of Encounters Visit Date Visit Type Provider 05/20/2015 Office visit MAIKEL HASSAN 06/11/2014 Office visit MAIKEL HASSAN 05/30/2014 Office visit MAIKEL HASSAN 01/17/2014 Office visit MAIKEL HASSAN 12/03/2013 [facility] Melissa Seth MD 10/01/2013 Office visit MAIKEL HASSAN 06/11/2013 Office visit MAIKEL HASSAN 05/28/2013 [facility] Melissa Seth MD 02/05/2013 Office visit MAIKEL HASSAN 01/18/2013 Office visit MAIKEL HASSAN 06/08/2012 Office visit MAIKEL HASSAN 05/17/2012 Office visit MAIKEL HASSAN 10/29/2011 Office visit MAIKEL HASSAN 09/16/2011 Office visit MAIKEL HASSAN 09/16/2011 [facility] Melissa Seth MD 07/02/2011 Office visit MAIKEL HASSAN 05/06/2011 Office visit Maikel HASSAN-C 01/18/2011 Office visit Maikel HASSAN-C 01/15/2011 Office visit Maikel HASSAN-C 06/18/2010 Office visit Maikel HASSAN-C 03/09/2010 Office visit Maikel HASSAN-C 02/10/2010 Office visit Maikel Salter PA-C
--- OUTSIDE RECORDS SUMMARY | 2019-02-06 09:34 | XMS REPORT ---
Author Author MAIKEL SALTER [facility] Address [address] [place], [place] [address] Care Team Providers Care Day Porter Name Role Phone MAIKEL SALTER PCP MAIKEL [...] as needed hydrochlorothiazide 25 mg oral tablet 12/29/2017 TAKE 1 TABLET DAILY Bactrim DS 800-160 mg oral tablet 01/04/2018 01/14/2018 take 1 tablet by oral route every 12 hours for 10 days Name Start Date Expiration [...] tablet 09/19/2017 10/01/2017 2X4 days 1X4 days 1/2X4 days Zithromax Z-Travon 250 mg oral tablet [...] HC BMI BSA BMI Percentile O2 Sat(%) 01/03/2018 2:35:00 PM 120 mmHg 82 mmHg [...] 12:00 AM Decadron Inj.1mg-([facility]) [facility] #[id number] Reviewed 05/06/2011 12:00 AM Depo-Medrol 80 Mg Im/[facility] [id number] Reviewed 05/06/2011 12:00 AM Rocephin, Per 250MG - 1 Gram Vial [facility] [id number]-Fv [place] Reviewed 10/29/2011 12:00 AM ROUTINE VENIPUNCTURE Reviewed 10/29/2011 12:00 AM COMPLETE CBC W/AUTO DIFF WBC Reviewed 10/29/2011 12:00 AM COMPREHEN METABOLIC PANEL Reviewed 10/29/2011 12:00 AM ASSAY THYROID STIM HORMONE Reviewed 06/24/2016 12:00 AM Decadron, Per 1 Mg [facility]# [address]-19 Reviewed 06/24/2016 12:00 AM Depo-Medrol, Per 80 Mg [facility]#5457-2686-68 Reviewed 06/24/2016 12:00 AM Rocephin 1 gram [facility]#7188-3419-55 Reviewed 07/26/2016 12:00 AM THER/PROPH/DIAG INJ SC/IM Reviewed 07/26/2016 12:00 AM Decadron 8mg Injection, [facility] Medicare Reviewed 07/26/2016 12:00 AM Depo-Medrol 80mg Injection, [facility] Medicare Reviewed 07/26/2016 12:00 AM Rocephin 1 gram Injection, [facility] Medicare Reviewed 12/16/2016 12:00 AM COMPLETE CBC W/AUTO DIFF WBC Reviewed 12/16/2016 12:00 AM COMPREHEN METABOLIC PANEL Reviewed 12/16/2016 12:00 AM LIPID PANEL Reviewed 12/28/2016 12:00 AM THERAPEUTIC PROPHYLACTIC/DX INJECTION SUBQ/IM Reviewed 12/28/2016 12:00 AM Decadron 8mg Injection, [facility] Medicare Reviewed 12/28/2016 12:00 AM Depo-Medrol 80mg Injection, [facility] Medicare Reviewed 04/12/2017 12:00 AM LIPID PANEL Returned 04/11/2017 12:00 AM THERAPEUTIC PROPHYLACTIC/DX INJECTION SUBQ/IM Reviewed 04/11/2017 12:00 AM Decadron 8mg Injection, [facility] Medicare Reviewed 04/11/2017 12:00 AM Depo-Medrol 80mg Injection, [facility] Medicare Reviewed 05/17/2012 12:00 AM THER/PROPH/DIAG INJ SC/IM Reviewed 05/17/2012 12:00 AM Decadron, Per 1 Mg [facility]# [address]-79 Reviewed 05/17/2012 12:00 AM Depo-Medrol, Per 80 Mg [facility]#4236-4114-90 Reviewed 05/17/2012 12:00 AM Toradol 60 Mg [facility]#6831-1818-33 Reviewed 06/07/2017 12:00 AM THERAPEUTIC PROPHYLACTIC/DX INJECTION SUBQ/IM Reviewed 06/07/2017 12:00 AM Decadron 8mg Injection, [facility] Medicare Reviewed 06/07/2017 12:00 AM Depo-Medrol 80mg Injection, [facility] Medicare Reviewed 08/30/2017 12:00 AM THERAPEUTIC PROPHYLACTIC/DX INJECTION SUBQ/IM Reviewed 08/30/2017 12:00 AM Rocephin 1 gram Injection, [facility] Medicare Reviewed 09/19/2017 12:00 AM THERAPEUTIC PROPHYLACTIC/DX INJECTION SUBQ/IM Reviewed 09/19/2017 12:00 AM Decadron 8mg Injection, [facility] Medicare Reviewed 09/19/2017 12:00 AM Depo-Medrol 80mg Injection, [facility] Medicare Reviewed 09/19/2017 12:00 AM Rocephin 1 gram Injection, [facility] Medicare Reviewed 01/18/2013 12:00 AM THER/PROPH/DIAG INJ SC/IM Reviewed 01/18/2013 12:00 AM Decadron, Per 1 Mg [facility]# [address]-59 Reviewed 01/18/2013 12:00 AM Depo-Medrol, Per 80 Mg [facility]#1063-1813-89 Reviewed 01/18/2013 12:00 AM Toradol 60 Mg [facility]#1106-2186-91 Reviewed 02/10/2010 12:00 AM ROUTINE VENIPUNCTURE Reviewed [...] Reviewed 01/18/2011 12:00 AM Decadron Inj.8mg-() [facility] #[id number] Reviewed 01/18/2011 12:00 AM Depo-Medrol 80 Mg Im/[facility] [id number] Reviewed Results Summary Date and Description Results [...] left lower extremity Jan 03 2018 2:35PM Payers Insurance Name Company Name Plan Name Plan Number Policy Number Policy Group Number Start Date Medicare RHC Medicare RHC [id number] N/A [place] Medical Assistance Program [place] Medical Assistance Prog [id number] N/A zzzTest Medicare A Test Medicare A [id number] N/A [facility] - RHC - [employer] 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 - RHC [id number] N/A Medicare Part A Medicare Part A [id number] N/A Medicare Part B Medicare Of [place] [id number] N/A History of Encounters Visit Date Visit Type Provider 01/03/2018 Office visit MAIKEL HASSAN 11/29/2017 Office visit MAIKEL HASSAN 09/19/2017 Office visit MAIKEL HASSAN 08/30/2017 Office visit MAIKEL HASSAN 06/07/2017 Office visit MAIKEL HSASAN 04/12/2017 Voided MAIKEL HASSAN 04/11/2017 Office visit [...] MAIKEL SALTER PA 09/16/2011 [facility] Manish Seth MD 07/02/2011 Office visit MAIKEL SALTER PA 05/06/2011 Office visit Maikel Salter PA-C 01/18/2011 Office visit Maikel Salter PA-C 01/15/2011 Office visit Maikel Salter PA-C 06/18/2010 Office visit Maikel Salter PA-C 03/09/2010 Office visit Maikel Salter PA-C 02/10/2010 Office visit Maikel Salter PA-C
--- OUTSIDE RECORDS SUMMARY | 2019-02-06 09:35 | XMS REPORT ---
Author Author MAIKEL SALTER [facility] Address [address] [place], [place] [address] Care Team Providers Care Legal Document Assistant Name Role Phone MAIKEL SALTER PCP MAIKEL [...] oral route every 6 hours as needed Bactrim DS 800-160 mg oral tablet 01/31/2018 02/10/2018 take 1 tablet by oral route every 12 hours for 10 days hydrochlorothiazide 25 mg oral tablet 01/31/2018 TAKE 1 TABLET DAILY Name Start Date [...] 4 days Keflex 500 mg oral capsule 01/17/2018 01/24/2018 take 1 capsule (500 mg) by oral route every 12 hours for 7 days Discontinued Name Start Date [...] HC BMI BSA BMI Percentile O2 Sat(%) 01/31/2018 10:48:00 AM 118 mmHg 80 mmHg [...] F 138 lbs 63 in 24.4454 kg/m 1.67 m2 94 % 06/08/2012 9:08:00 AM 110 mmHg 60 mmHg 88 bpm 18 rpm 97.5 F 142 lbs 63 in 25.15 kg/m2 1.6921 m 94 % 05/17/2012 9:33:00 AM 130 mmHg 60 mmHg 98 bpm 18 rpm 146 lbs 63 in 25.8625 kg/m 1.72 m2 95 % 09/16/2011 2:31:00 PM 116 mmHg 76 mmHg 88 bpm 140 lbs 63 in 24.80 kg/m2 1.6801 m 96 % 07/02/2011 10:02:00 AM [...] INJ SC/IM Reviewed 05/06/2011 12:00 AM Decadron Inj.1mg-([facility]) [facility] #[id number] Reviewed 05/06/2011 12:00 AM Depo-Medrol 80 Mg Im/[facility] [id number] Reviewed 05/06/2011 12:00 AM Rocephin, Per 250MG - 1 Gram Vial [facility] [id number]-Nw [place] Reviewed 10/29/2011 12:00 AM ROUTINE VENIPUNCTURE Reviewed 10/29/2011 12:00 AM COMPLETE CBC W/AUTO DIFF WBC Reviewed 10/29/2011 12:00 AM COMPREHEN METABOLIC PANEL Reviewed 10/29/2011 12:00 AM ASSAY THYROID STIM HORMONE Reviewed 06/24/2016 12:00 AM Decadron, Per 1 Mg [facility]# [address]-08 Reviewed 06/24/2016 12:00 AM Depo-Medrol, Per 80 Mg [facility]#5413-4696-54 Reviewed 06/24/2016 12:00 AM Rocephin 1 gram [facility]#1234-5888-96 Reviewed 07/26/2016 12:00 AM THER/PROPH/DIAG INJ SC/IM Reviewed 07/26/2016 12:00 AM Decadron 8mg Injection, [facility] Medicare Reviewed 07/26/2016 12:00 AM Depo-Medrol 80mg Injection, [facility] Medicare Reviewed 07/26/2016 12:00 AM Rocephin 1 gram Injection, [facility] Medicare Reviewed 12/16/2016 12:00 AM COMPLETE CBC W/AUTO DIFF WBC Reviewed 12/16/2016 12:00 AM COMPREHEN METABOLIC PANEL Reviewed 12/16/2016 12:00 AM LIPID PANEL Reviewed 12/28/2016 12:00 AM THERAPEUTIC PROPHYLACTIC/DX INJECTION SUBQ/IM Reviewed 12/28/2016 12:00 AM Decadron 8mg Injection, [facility] Medicare Reviewed 12/28/2016 12:00 AM Depo-Medrol 80mg Injection, [facility] Medicare Reviewed 04/12/2017 12:00 AM LIPID PANEL Returned 04/11/2017 12:00 AM THERAPEUTIC PROPHYLACTIC/DX INJECTION SUBQ/IM Reviewed 04/11/2017 12:00 AM Decadron 8mg Injection, [facility] Medicare Reviewed 04/11/2017 12:00 AM Depo-Medrol 80mg Injection, [facility] Medicare Reviewed 05/17/2012 12:00 AM THER/PROPH/DIAG INJ SC/IM Reviewed 05/17/2012 12:00 AM Decadron, Per 1 Mg [facility]# [address]-99 Reviewed 05/17/2012 12:00 AM Depo-Medrol, Per 80 Mg [facility]#7166-7367-78 Reviewed 05/17/2012 12:00 AM Toradol 60 Mg [facility]#7081-5942-38 Reviewed 06/07/2017 12:00 AM THERAPEUTIC PROPHYLACTIC/DX INJECTION [...] 01/18/2013 12:00 AM Decadron, Per 1 Mg [facility]# [address]-77 Reviewed 01/18/2013 12:00 AM Depo-Medrol, Per 80 Mg [facility]#1834-5669-17 Reviewed 01/18/2013 12:00 AM Toradol 60 Mg [facility]#1709-9907-84 Reviewed 02/10/2010 12:00 AM ROUTINE VENIPUNCTURE Reviewed [...] INJ SC/IM Reviewed 01/18/2011 12:00 AM [facility] #[id number] Reviewed 01/18/2011 12:00 AM Depo-Medrol 80 Mg Im/[facility] [phone] Reviewed Results Summary Date and Description Results [...] 10:48AM Peripheral edema Jan 31 2018 10:48AM Payers Insurance Name Company Name Plan Name Plan Number Policy Number Policy Group Number Start Date Medicare RHC Medicare RHC [id number] N/A [place] Medical [place] Prog [id number] N/A zzzTest Medicare A Test Medicare A [id number] N/A [facility] - RHC - [facility] RHC Comm [id number] N/A Medicare Part A Medicare - Lab/Xray [id number] N/A [place] [employer] Prog - RHC [place] Wait[employer] Prog - RHC [id number] N/A Medicare Part A Medicare Part A [id number] N/A Medicare Part B Medicare Of [place] [id number] N/A History of Encounters Visit Date Visit Type Provider 01/31/2018 Office visit MAIKEL HASSAN 01/03/2018 Office [...] visit MAIKEL HASSAN 05/20/2015 Office visit MAIKEL SALTER PA 06/11/2014 Office visit MAIKEL SALTER PA 05/30/2014 Office visit MAIKEL SALTER PA 01/17/2014 Office visit MAIKEL SALTER PA 12/03/2013 [facility] Melissa Seth MD 10/01/2013 Office visit MAIKEL SALTER PA 06/11/2013 Office visit MAIKEL SALTER PA 05/28/2013 [facility] Melissa Seth MD 02/05/2013 Office visit MAIKEL SALTER PA 01/18/2013 Office visit MAIKEL SALTER PA 06/08/2012 Office visit MAIKEL SALTER PA 05/17/2012 Office visit MAIKEL SALTER PA 10/29/2011 Office visit MAIKEL SALTER PA 09/16/2011 Office visit MAIKEL SALTER PA 09/16/2011 [facility] Melissa Seth MD 07/02/2011 Office visit MAIKEL SALTER PA 05/06/2011 Office visit Maikel Salter PA-C 01/18/2011 Office visit Maikel Salter PA-C 01/15/2011 Office visit Maikel Salter PA-C 06/18/2010 Office visit Maikel Salter PA-C 03/09/2010 Office visit Maikel Salter PA-C 02/10/2010 Office visit Maikel Salter PA-C
[2019-02-06] MEDS ORDERED: LEVETIRACETAM 500 MG/5 ML (KEPPRA) VIAL IV ONE (09:36)
[2019-02-06] MEDS ORDERED: LORazepam INJ 2 MG/ML (ATIVAN) VIAL ONE (09:36)
--- OUTSIDE RECORDS SUMMARY | 2019-02-06 09:36 | XMS REPORT ---
Author MAIKEL Nicole [facility] Address [address] [place], [place] [address] Care Team Providers Care Director Of Assessing Name Role Phone MAIKEL SALTER PCP Unavailable [...] 2 days hydrochlorothiazide 25 mg oral tablet 02/07/2017 TAKE 1 TABLET DAILY metoprolol succinate 25 mg oral tablet extended release 24 hr 02/07/2017 TAKE 1 TABLET DAILY Keflex 500 mg oral capsule 02/24/2017 take 1 capsule (500 mg) by oral route every 12 hours Name Start Date Expiration Date SIG Comments [...] 2 times a day for 10 days Discontinued Name Start [...] HC BMI BSA BMI Percentile O2 Sat(%) 02/01/2017 11:37:00 AM 118 mmHg 72 mmHg [...] mmHg 106 bpm 155 lbs 63 in 27.46 kg/m2 1.77 m2 96 % 01/18/2011 9:55:00 AM 114 mmHg [...] Reviewed 05/06/2011 12:00 AM Decadron Inj.1mg-([facility]) [facility] #[id number] Reviewed 05/06/2011 12:00 AM Depo-Medrol 80 Mg Im/[facility] [id number] Reviewed 05/06/2011 12:00 AM Rocephin, Per 250MG - 1 Gram Vial [facility] [id number]-Js Paul Reviewed 10/29/2011 12:00 AM ROUTINE VENIPUNCTURE Reviewed 10/29/2011 12:00 AM COMPLETE CBC W/AUTO DIFF WBC Reviewed 10/29/2011 12:00 AM COMPREHEN METABOLIC PANEL Reviewed 10/29/2011 12:00 AM ASSAY THYROID STIM HORMONE Reviewed 06/24/2016 12:00 AM Decadron, Per 1 Mg [facility]# [address]-45 Reviewed 06/24/2016 12:00 AM Depo-Medrol, Per 80 Mg [facility]#7753-0561-32 Reviewed 06/24/2016 12:00 AM Rocephin 1 gram [facility]#6951-9901-87 Reviewed 07/26/2016 12:00 AM THER/PROPH/DIAG INJ SC/IM [...] 05/17/2012 12:00 AM Decadron, Per 1 Mg [facility]# [address]-76 Reviewed 05/17/2012 12:00 AM Depo-Medrol, Per 80 Mg [facility]#5735-8646-26 Reviewed 05/17/2012 12:00 AM Toradol 60 Mg [facility]#1813-9622-89 Reviewed 01/18/2013 12:00 AM THER/PROPH/DIAG INJ SC/IM Reviewed 01/18/2013 12:00 AM Decadron, Per 1 Mg [facility]# [address]-56 Reviewed 01/18/2013 12:00 AM Depo-Medrol, Per 80 Mg [facility]#8703-0406-12 Reviewed 01/18/2013 12:00 AM Toradol 60 Mg [facility]#7638-9157-38 Reviewed 02/10/2010 12:00 AM ROUTINE VENIPUNCTURE Reviewed [...] Reviewed 01/18/2011 12:00 AM Decadron Inj.8mg-([facility]) [facility] #[id number] Reviewed 01/18/2011 12:00 AM Depo-Medrol 80 Mg Im/[facility] [id number] Reviewed Results Summary Date and Description Results [...] Abnormal chest xray Mar 24 2017 4:09PM Payers Insurance Name Company Name Plan Name Plan Number Policy Number Policy Group Number Start Date Medicare [facility] Medicare RH [id number] N/A [place] Medical Assistance Program [place] Prog [id number] N/A zzzTest Medicare A Test Medicare A [id number] N/A [facility] - RHC - Community Plan [facility] RH Comm [id number] N/A Medicare Part A Medicare - Lab/Xray [id number] N/A [place] Sales [employer] Prog - RHC [place] Sales [employer] Prog - RHC [id number] N/A Medicare Part A Medicare Part A [id number] N/A Medicare Part B Medicare Of [place] [id number] N/A History of Encounters Visit Date Visit Type Provider 02/01/2017 Office visit MAIKEL HASSAN 01/21/2017 Office [...] HASSAN 01/17/2014 Office visit MAIKEL HASSAN 12/03/2013 [facility] Melissa Seth MD 10/01/2013 Office visit MAIKEL HASSAN 06/11/2013 Office visit MAIKEL HASSAN 05/28/2013 [facility] Melissa Seth MD 02/05/2013 Office visit MAIKEL HASSAN 01/18/2013 Office visit MAIKEL HASSAN 06/08/2012 Office visit MAIKEL HASSAN 05/17/2012 Office visit MAIKEL HASSAN 10/29/2011 Office visit MAIKEL SALTER PA 09/16/2011 Office visit MAIKEL HASSAN 09/16/2011 [facility] Melissa Seth MD 07/02/2011 Office visit MAIKEL HASSAN 05/06/2011 Office visit Maikel Salter PA-C 01/18/2011 Office visit Maikel Salter PA-C 01/15/2011 Office visit Maikel Salter PA-C 06/18/2010 Office visit Maikel Salter PA-C 03/09/2010 Office visit Maikel Saletr PA-C 02/10/2010 Office visit Maikel Salter PA-C
[2019-02-06 09:37] LABS: BASOPHILS % (AUTO) 0 % (0-10); EOSINOPHILS % (AUTO) 0 % (0-10); HEMATOCRIT 46 % (35-52); HEMOGLOBIN 14.6 G/DL (11.5-16.0); LYMPHOCYTES # (AUTO) 1.2 X 10^3 (1.0-4.0); LYMPHOCYTES % (AUTO) 14 % (12-44); MEAN CORPUSCULAR HEMOGLOBIN 29 PG (25-34); MEAN CORPUSCULAR HGB CONC 32 G/DL (32-36); MEAN CORPUSCULAR VOLUME 92 FL (80-99); MEAN PLATELET VOLUME 10.1 FL (7.4-10.4); MONOCYTES # (AUTO) 0.5 X 10^3 (0.0-1.0); MONOCYTES % (AUTO) 6 % (0-12); NEUTROPHILS # (AUTO) 6.8 X 10^3 (1.8-7.8); NEUTROPHILS % (AUTO) 79 % (42-75); PLATELET COUNT 314 10^3/uL (130-400); RED CELL DISTRIBUTION WIDTH 12.8 % (10.0-14.5); WHITE BLOOD COUNT 8.6 10^3/uL (4.3-11.0)
--- OUTSIDE RECORDS SUMMARY | 2019-02-06 09:37 | XMS REPORT ---
Author MAIKEL Nicole [facility] Address [address] [place], [place] [address] Care Team Providers Care Entry Level Receptionist Name Role Phone MAIKEL SALTER PCP Unavailable MAIKEL SALTER PreferredProvider Unavailable Allergies and Adverse Reactions Name Reaction Notes NO KNOWN DRUG ALLERGIES Plan of Treatment Planned Activity Comments Planned Date Planned Time Plan/Goal Lipid Profile 04/05/2016 12:00 AM Injection,Subcutaneous/Intramuscul, [facility] Medicare 12/28/2016 12:00 AM Medications Active Name Start Date [...] 24 hr 10/28/2016 TAKE 1 TABLET DAILY hydrochlorothiazide 25 mg oral tablet 12/13/2016 TAKE 1 TABLET DAILY Levaquin 500 mg oral tablet 12/28/2016 01/07/2017 take 1 tablet (500 mg) by oral route once daily for 10 days prednisone 20 mg oral tablet 12/28/2016 4 x 2 days, 3 x 2 days, 2 x 2 days 1 x 2 days Name Start Date Expiration Date SIG [...] joints Active 12/29/2016 Medication management Active 12/29/2016 Vital Signs Date Time BP-Sys(mm[Hg] BP-Cee(mm[Hg]) HR(bpm) RR(rpm) Temp WT HT HC BMI BSA BMI Percentile O2 Sat(%) 12/28/2016 4:03:00 PM 118 mmHg 64 mmHg [...] SC/IM Reviewed 05/06/2011 12:00 AM Decadron Inj.1mg-([facility]) [facility] #[id number] Reviewed 05/06/2011 12:00 AM Depo-Medrol 80 Mg Im/[facility] [id number] Reviewed 05/06/2011 12:00 AM Rocephin, Per 250MG - 1 Gram Vial [facility] [id number]-I[facility] Reviewed 10/29/2011 12:00 AM ROUTINE VENIPUNCTURE Reviewed 10/29/2011 12:00 AM COMPLETE CBC W/AUTO DIFF WBC Reviewed 10/29/2011 12:00 AM COMPREHEN METABOLIC PANEL Reviewed 10/29/2011 12:00 AM ASSAY THYROID STIM HORMONE Reviewed 06/24/2016 12:00 AM Decadron, Per 1 Mg [facility]# [address]-12 Reviewed 06/24/2016 12:00 AM Depo-Medrol, Per 80 Mg [facility]#3824-1537-49 Reviewed 06/24/2016 12:00 AM Rocephin 1 gram [facility]#0125-1682-53 Reviewed 07/26/2016 12:00 AM THER/PROPH/DIAG INJ SC/IM Reviewed 07/26/2016 12:00 AM Decadron 8mg Injection, [facility] Medicare Reviewed 07/26/2016 12:00 AM Depo-Medrol 80mg Injection, [facility] Medicare Reviewed 07/26/2016 12:00 AM Rocephin 1 gram Injection, [facility] Medicare Reviewed 12/16/2016 12:00 AM COMPLETE CBC W/AUTO DIFF WBC Reviewed 12/16/2016 12:00 AM COMPREHEN METABOLIC PANEL Reviewed 12/16/2016 12:00 AM LIPID PANEL Reviewed 05/17/2012 12:00 AM THER/PROPH/DIAG INJ SC/IM Reviewed 05/17/2012 12:00 AM Decadron, Per 1 Mg [facility]# [address]-38 Reviewed 05/17/2012 12:00 AM Depo-Medrol, Per 80 Mg [facility]#3834-8023-38 Reviewed 05/17/2012 12:00 AM Toradol 60 Mg [facility]#6185-6519-57 Reviewed 01/18/2013 12:00 AM THER/PROPH/DIAG INJ SC/IM Reviewed 01/18/2013 12:00 AM Decadron, Per 1 Mg [facility]# [address]-02 Reviewed 01/18/2013 12:00 AM Depo-Medrol, Per 80 Mg [facility]#3945-2300-35 Reviewed 01/18/2013 12:00 AM Toradol 60 Mg [facility]#1008-3[address]-09 Reviewed 02/10/2010 12:00 AM ROUTINE VENIPUNCTURE Reviewed [...] SC/IM Reviewed 01/18/2011 12:00 AM Decadron Inj.8mg-([facility]) [facility] #[id number] Reviewed 01/18/2011 12:00 AM Depo-Medrol 80 Mg Im/[facility] [id number] Reviewed Results Summary Date and Description Results [...] involving multiple joints 12/29/2016 Medication management 12/29/2016 Cough May 06 2011 2:55PM Seasonal Allergies [...] involving multiple joints Dec 28 2016 4:04PM Payers Insurance Name Company Name Plan Name Plan Number Policy Number Policy Group Number Start Date Medicare RHC Medicare RHC [id number] N/A [place] Medical Assistance Program [place] [employer] Prog [id number] N/A zzzTest Medicare A Test Medicare A [id number] N/A [facility] - RHC - [facility] RHC Comm [id number] N/A Medicare Part A Medicare - Lab/Xray [id number] N/A [place] Order Clerk Prog - RHC [place] Order Clerk Prog - RHC [id number] N/A Medicare Part A Medicare Part A [id number] N/A Medicare Part B Medicare Of [place] [id number] N/A History of Encounters Visit Date Visit Type Provider 12/28/2016 Office visit MAIKEL HASSAN 07/26/2016 Office visit MAIKEL HASSAN 06/24/2016 Office visit MAIKEL HASSAN 10/23/2015 Office visit MAIKEL HASSAN 07/29/2015 Office visit MAIKEL HASSAN 06/09/2015 Office visit MAIKEL HASSAN 05/20/2015 Office visit MAIKEL HASSAN 06/11/2014 Office visit MAIKEL HASSAN 05/30/2014 Office visit MAIKEL HASSAN 01/17/2014 Office visit MAIKEL HASSAN 12/03/2013 [facility] Melissa Seth MD 10/01/2013 Office visit MAIKEL HASSAN 06/11/2013 Office visit MAIKEL HASSAN 05/28/2013 [facility] Melissa Seth MD 02/05/2013 Office visit MAIKEL HASSAN 01/18/2013 Office visit MAIKEL HASSAN 06/08/2012 Office visit MAIKEL HASSAN 05/17/2012 Office visit MAIKEL HASSAN 10/29/2011 Office visit MAIKEL HASSAN 09/16/2011 Office visit MAIKEL HASSAN 09/16/2011 [facility] Melissa Seth MD 07/02/2011 Office visit MAIKEL HASSAN 05/06/2011 Office visit Maikel Salter PA-C 01/18/2011 Office visit Maikel HASSAN-C 01/15/2011 Office visit Maikel HASSAN-C 06/18/2010 Office visit Maikel HASSAN-C 03/09/2010 Office visit Maikel Salter PA-C 02/10/2010 Office visit Maikel Salter PA-C
--- OUTSIDE RECORDS SUMMARY | 2019-02-06 09:38 | XMS REPORT ---
Author Author MAIKEL SALTER [facility] Address [address] [place], [place] [address] Care Team Providers Care Hospice Care Transitions Coordinator Name Role Phone MAIKEL SALTER PCP MAIKEL SALTER PreferredProvider Allergies and Adverse Reactions Name Reaction Notes NO KNOWN DRUG ALLERGIES Plan of Treatment Planned Activity Comments Planned Date Planned Time Plan/Goal Lipid Profile 04/05/2016 12:00 AM Chest PA and Lateral - Main 03/24/2017 12:00 AM Injection,Subcutaneous/Intramuscul, [facility] Medicare 08/30/2017 12:00 AM Medications Active Name Start Date [...] route 4 times per day for COPD albuterol sulfate 1.25 mg/3 mL inhalation solution for nebulization 03/31/2017 inhale 3 milliliters (1.25 mg) via nebulizer by inhalation route 4 times per day DX J44.9 Symbicort 160-4.5 mcg/actuation inhalation HFA aerosol inhaler 06/08/2017 inhale 2 puffs by inhalation route 2 times per day in the morning and evening hydrochlorothiazide 25 mg oral tablet 06/21/2017 TAKE 1 TABLET DAILY metoprolol succinate 25 mg oral tablet extended release 24 hr 06/21/2017 TAKE 1 TABLET DAILY Sudogest 30 mg oral tablet 07/05/2017 take 1 tablets (60 mg) by oral route every 6 hours as needed amoxicillin 500 mg oral tablet 08/30/2017 take [...] HC BMI BSA BMI Percentile O2 Sat(%) 08/30/2017 3:57:00 PM 128 mmHg 80 mmHg [...] 12:00 AM Decadron Inj.1mg-([facility]) [facility] #[id number] Reviewed 05/06/2011 12:00 AM Depo-Medrol 80 Mg Im/[facility] [phone] Reviewed 05/06/2011 12:00 AM Rocephin, Per 250MG - [address] [facility] [id number]-Vh [facility] Reviewed 10/29/2011 12:00 AM ROUTINE VENIPUNCTURE Reviewed 10/29/2011 12:00 AM COMPLETE CBC W/AUTO DIFF WBC Reviewed 10/29/2011 12:00 AM COMPREHEN METABOLIC PANEL Reviewed 10/29/2011 12:00 AM ASSAY THYROID STIM HORMONE Reviewed 06/24/2016 12:00 AM Decadron, Per [address] [facility]# [address]-71 Reviewed 06/24/2016 12:00 AM Depo-Medrol, Per [address] [facility]#7842-8485-78 Reviewed 06/24/2016 12:00 AM Rocephin [address] [facility]#6493-5786-27 Reviewed 07/26/2016 12:00 AM THER/PROPH/DIAG INJ SC/IM [...] Reviewed 04/11/2017 12:00 AM Depo-Medrol 80mg Injection, [facility] Medicare Reviewed 05/17/2012 12:00 AM THER/PROPH/DIAG INJ SC/IM Reviewed 05/17/2012 12:00 AM Decadron, Per [address] [facility]# [address]-85 Reviewed 05/17/2012 12:00 AM Depo-Medrol, Per [address] [facility]#4226-0306-21 Reviewed 05/17/2012 12:00 AM Toradol [address] [facility]#8540-4831-95 Reviewed 06/07/2017 12:00 AM THERAPEUTIC PROPHYLACTIC/DX INJECTION SUBQ/IM Reviewed 06/07/2017 12:00 AM Decadron 8mg Injection, [facility] Medicare Reviewed 06/07/2017 12:00 AM Depo-Medrol 80mg Injection, [facility] Medicare Reviewed 01/18/2013 12:00 AM THER/PROPH/DIAG INJ SC/IM Reviewed 01/18/2013 12:00 AM Decadron, Per [address] [facility]# [address]-58 Reviewed 01/18/2013 12:00 AM Depo-Medrol, Per [address] [facility]#9246-5587-79 Reviewed 01/18/2013 12:00 AM Toradol [address] [facility]#3540-2869-37 Reviewed 02/10/2010 12:00 AM ROUTINE VENIPUNCTURE Reviewed [...] SC/IM Reviewed 01/18/2011 12:00 AM Decadron Inj.8mg-([facility]) [facility] #[id number] Reviewed 01/18/2011 12:00 AM Depo-Medrol 80 Mg Im/[facility] [id number] Reviewed Results Summary Date and Description Results [...] node in neck Aug 30 2017 3:58PM Payers Insurance Name Company Name Plan Name Plan Number Policy Number Policy Group Number Start Date Medicare RHC Medicare RHC [id number] N/A [place] Program [place] Prog [id number] N/A zzzTest Medicare A Test Medicare A [id number] N/A [facility] - RHC - [facility] RHC Comm [id number] N/A Medicare Part A Medicare - Lab/Xray [id number] N/A [place] Counter Manager Prog - RHC [place] Counter Manager Prog - RHC [id number] N/A Medicare Part A Medicare Part A [id number] N/A Medicare Part B Medicare Of [place] [id number] N/A History of Encounters Visit Date Visit Type Provider 08/30/2017 Office visit MAIKEL HASSAN 06/07/2017 Office [...] 06/11/2013 Office visit MAIKEL HASSAN 05/28/2013 [facility] Melissa Seth MD [...] Maikel Salter PA-C 02/10/2010 Office visit Maikel SAMANOC
--- NOTE | 2019-02-06 09:39 | NUR ---
Pt back from CT. Pt exhibiting seizure activity at this time.
--- OUTSIDE RECORDS SUMMARY | 2019-02-06 09:39 | XMS REPORT ---
Author MAIKEL Nicole [facility] Address [address] [place], [place] [address] Care Team Providers Care Floatlight Loading Supervisor Name Role Phone MAIKEL SALTER PCP Unavailable [...] (25 mg) by oral route once daily metoprolol succinate 25 mg oral tablet extended [...] route 4 times per day DX J44.9 hydrochlorothiazide 25 mg oral tablet 04/28/2017 TAKE 1 TABLET DAILY Keflex 500 mg oral capsule 05/24/2017 take 1 capsule (500 mg) by oral route every 12 hours for 10 days Sudogest 30 mg oral tablet 06/07/2017 take 1 tablets (60 mg) by oral route every 6 hours as needed Symbicort 160-4.5 mcg/actuation inhalation HFA aerosol inhaler 06/08/2017 inhale 2 puffs by inhalation route 2 times per day in the morning and evening Name Start Date Expiration Date SIG Comments [...] mg) by oral route every 12 hours Problem List Description Status Onset Chronic Obstructive [...] HC BMI BSA BMI Percentile O2 Sat(%) 06/07/2017 1:51:00 PM 132 mmHg 80 mmHg [...] SC/IM Reviewed 05/06/2011 12:00 AM Decadron Inj.1mg-([facility]) [facility] #[id number] Reviewed 05/06/2011 12:00 AM Depo-Medrol 80 Mg Im/[facility] [id number] Reviewed 05/06/2011 12:00 AM Rocephin, Per 250MG - 1 Gram Vial [facility] [id number]-Tn Paul Reviewed 10/29/2011 12:00 AM ROUTINE VENIPUNCTURE Reviewed 10/29/2011 12:00 AM COMPLETE CBC W/AUTO DIFF WBC Reviewed 10/29/2011 12:00 AM COMPREHEN METABOLIC PANEL Reviewed 10/29/2011 12:00 AM ASSAY THYROID STIM HORMONE Reviewed 06/24/2016 12:00 AM Decadron, Per 1 Mg [facility]# [address]-72 Reviewed 06/24/2016 12:00 AM Depo-Medrol, Per 80 Mg [facility]#1728-9148-73 Reviewed 06/24/2016 12:00 AM Rocephin 1 gram [facility]#0490-8209-83 Reviewed 07/26/2016 12:00 AM THER/PROPH/DIAG INJ SC/IM Reviewed 07/26/2016 12:00 AM Decadron 8mg Injection, [facility] Medicare Reviewed 07/26/2016 12:00 AM Depo-Medrol 80mg Injection, [facility] Medicare Reviewed 07/26/2016 12:00 AM Rocephin 1 gram Injection, [facility] Medicare Reviewed 12/16/2016 12:00 AM COMPLETE [...] Reviewed 04/11/2017 12:00 AM Depo-Medrol 80mg Injection, [facility] Medicare Reviewed 05/17/2012 12:00 AM THER/PROPH/DIAG INJ SC/IM Reviewed 05/17/2012 12:00 AM Decadron, Per 1 Mg [facility]# [address]-75 Reviewed 05/17/2012 12:00 AM Depo-Medrol, Per 80 Mg [facility]#2201-[address]60-82 Reviewed 05/17/2012 12:00 AM Toradol 60 Mg [facility]#0673-6206-30 Reviewed 06/07/2017 12:00 AM THERAPEUTIC PROPHYLACTIC/DX INJECTION SUBQ/IM Reviewed 06/07/2017 12:00 AM Decadron 8mg Injection, [facility] Medicare Reviewed 06/07/2017 12:00 AM Depo-Medrol 80mg Injection, [facility] Medicare Reviewed 01/18/2013 12:00 AM THER/PROPH/DIAG INJ SC/IM Reviewed 01/18/2013 12:00 AM Decadron, Per 1 Mg [facility]# [address]-46 Reviewed 01/18/2013 12:00 AM Depo-Medrol, Per 80 Mg [facility]#4368-2397-54 Reviewed 01/18/2013 12:00 AM Toradol 60 Mg [facility]#9339-5557-64 Reviewed 02/10/2010 12:00 AM ROUTINE VENIPUNCTURE Reviewed [...] SC/IM Reviewed 01/18/2011 12:00 AM Decadron Inj.8mg-() [facility] #[id number] Reviewed 01/18/2011 12:00 AM Depo-Medrol 80 Mg Im/[facility] [id number] Reviewed Results Summary Date and Description Results [...] Moderate Acute Vertigo Jun 07 2017 1:52PM Payers Insurance Name Company Name Plan Name Plan Number Policy Number Policy Group Number Start Date Medicare [facility] Medicare [facility] [id number] N/A [place] Medical [place] Medical [place] Prog [id number] N/A zzzTest Medicare A Test Medicare A [id number] N/A [facility] - [facility] - [facility] Comm [id number] N/A Medicare Part A Medicare - Lab/Xray [id number] N/A [place] [employer] [facility] - [facility] [id number] N/A Medicare Part A Medicare Part A [id number] N/A Medicare Part B Medicare [place] [id number] N/A History of Encounters Visit Date Visit Type Provider 06/07/2017 Office visit MAIKEL SATLER PA 04/12/2017 Voided MAIKEL SALTER PA 04/11/2017 [...] PA 01/17/2014 Office visit MAIKEL HASSAN 12/03/2013 [facility] Melissa Seth MD 10/01/2013 [...]
--- NOTE | 2019-02-06 09:40 | NUR ---
Due to pt condition, unable to perform NIH at this time.
--- OUTSIDE RECORDS SUMMARY | 2019-02-06 09:40 | XMS REPORT ---
Author MAIKEL Nicole [facility] Address [address] [place], [place] [id number] Care Team Providers Care Information Technology Coordinator Name Role Phone MAIKEL SALTER PCP Unavailable [...] Aerochamber 10/01/2013 Use with inhaler as directed pravastatin 20 mg oral tablet take 1 [...] oral tablet 12/13/2016 TAKE 1 TABLET DAILY Name Start Date [...] per day Levaquin 500 mg oral tablet 09/27/2016 10/07/2016 take 1 tablet (500 mg) by oral route once daily for 10 days amoxicillin 500 mg oral capsule 12/16/2016 12/26/2016 [...] Active 06/12/2014 Anxiety about health Active 10/24/2015 Vital Signs Date Time BP-Sys(mm[Hg] BP-Cee(mm[Hg]) HR(bpm) RR(rpm) Temp WT HT HC BMI BSA BMI Percentile O2 Sat(%) 07/26/2016 12:11:00 PM 120 mmHg 84 mmHg [...] SC/IM Reviewed 05/06/2011 12:00 AM Decadron Inj.1mg-([facility]) [facility] #[id number] Reviewed 05/06/2011 12:00 AM Depo-Medrol 80 Mg Im/[facility] [id number] Reviewed 05/06/2011 12:00 AM Rocephin, Per 250MG - 1 Gram Vial [facility] [id number]-Zy Paul Reviewed 10/29/2011 12:00 AM ROUTINE VENIPUNCTURE Reviewed 10/29/2011 12:00 AM COMPLETE CBC W/AUTO DIFF WBC Reviewed 10/29/2011 12:00 AM COMPREHEN METABOLIC PANEL Reviewed 10/29/2011 12:00 AM ASSAY THYROID STIM HORMONE Reviewed 06/24/2016 12:00 AM Decadron, Per 1 Mg [facility]# [address]-35 Reviewed 06/24/2016 12:00 AM Depo-Medrol, Per 80 Mg [facility]#2692-0019-74 Reviewed 06/24/2016 12:00 AM Rocephin 1 gram [facility]#7886-5456-77 Reviewed 07/26/2016 12:00 AM THER/PROPH/DIAG INJ SC/IM Reviewed 07/26/2016 12:00 AM Decadron 8mg Injection, [facility] Medicare Reviewed 07/26/2016 12:00 AM Depo-Medrol 80mg Injection, [facility] Medicare Reviewed 07/26/2016 12:00 AM Rocephin 1 gram Injection, [facility] Medicare Reviewed 12/16/2016 12:00 AM COMPLETE CBC W/AUTO DIFF WBC Reviewed 12/16/2016 12:00 AM COMPREHEN METABOLIC PANEL Reviewed 12/16/2016 12:00 AM LIPID PANEL Reviewed 05/17/2012 12:00 AM THER/PROPH/DIAG INJ SC/IM Reviewed 05/17/2012 12:00 AM Decadron, Per 1 Mg [facility]# [address]-06 Reviewed 05/17/2012 12:00 AM Depo-Medrol, Per 80 Mg [facility]#8010-1881-24 Reviewed 05/17/2012 12:00 AM Toradol 60 Mg [facility]#0916-1023-19 Reviewed 01/18/2013 12:00 AM THER/PROPH/DIAG INJ SC/IM Reviewed 01/18/2013 12:00 AM Decadron, Per 1 Mg [facility]# [address]-41 Reviewed 01/18/2013 12:00 AM Depo-Medrol, Per 80 Mg [facility]#8802-5474-13 Reviewed 01/18/2013 12:00 AM Toradol 60 Mg [facility]#6320-7412-99 Reviewed 02/10/2010 12:00 AM ROUTINE VENIPUNCTURE Reviewed [...] SC/IM Reviewed 01/18/2011 12:00 AM Decadron Inj.8mg-([facility]) [facility] #[id number] Reviewed 01/18/2011 12:00 AM Depo-Medrol 80 Mg Im/[facility] [id number] Reviewed Results Summary Date and Description Results [...] on imaging study Dec 16 2016 10:27AM Payers Insurance Name Company Name Plan Name Plan Number Policy Number Policy Group Number Start Date Medicare RHC Medicare RHC [id number] N/A [place] [employer] [place] [employer] [place] [id number] N/A zzzTest Medicare A Test Medicare A [id number] N/A [facility] - [facility] - [facility] RHC Comm [id number] N/A Medicare Part A Medicare - Lab/Xray [id number] N/A [place] [employer]g - [facility] [place] [employer] - [facility] [id number] N/A Medicare Part A Medicare Part A [id number] N/A Medicare Part B Medicare Of [place] [id number] N/A History of Encounters Visit Date Visit Type Provider 07/26/2016 Office visit MAIKEL HASSAN 06/24/2016 Office visit MAIKEL HASSAN 10/23/2015 Office visit MAIKEL HASSAN 07/29/2015 Office visit MAIKEL HASSAN 06/09/2015 Office visit MAIKEL HASSAN 05/20/2015 Office visit MAIKEL HASSAN 06/11/2014 Office visit MAIKEL HASSAN 05/30/2014 Office visit MAIKEL SALTER PA 01/17/2014 Office visit MAIKEL SALTER PA 12/03/2013 [facility] Melissa Seth MD 10/01/2013 Office visit MAIKEL SALTER PA 06/11/2013 Office visit MAIKEL SALTER PA 05/28/2013 [facility] Melissa Seth MD 02/05/2013 Office visit MAIKEL SALTER PA 01/18/2013 Office visit MAIKEL SALTER PA 06/08/2012 Office visit MAIKEL SALTER PA 05/17/2012 Office visit MAIKEL SALTER PA 10/29/2011 Office visit MAIKEL SALTER PA 09/16/2011 Office visit MAIKEL SALTER PA 09/16/2011 [facility] Melissa Seth MD 07/02/2011 Office visit MAIKEL SALTER PA 05/06/2011 Office visit Maikel Salter PA-C 01/18/2011 Office visit Maikel Salter PA-C 01/15/2011 Office visit Maikel Salter PA-C 06/18/2010 Office visit Maikel Salter PA-C 03/09/2010 Office visit Maikel Salter PA-C 02/10/2010 Office visit Maikel Salter PA-C
--- OUTSIDE RECORDS SUMMARY | 2019-02-06 09:41 | XMS REPORT ---
Author Author MAIKEL SALTER [facility] Address [address] [place], [place] [address] Care Team Providers Care Registered Dental Assistant Rda Name Role Phone MAIKEL SALTER PCP Unavailable [...] HC BMI BSA BMI Percentile O2 Sat(%) 06/09/2015 2:46:00 PM 130 mmHg 80 mmHg [...] Reviewed 05/06/2011 12:00 AM Decadron Inj.1mg-([facility]) [facility] #[id number] Reviewed 05/06/2011 12:00 AM Depo-Medrol 80 Mg Im/[facility] [id number] Reviewed 05/06/2011 12:00 AM Rocephin, Per 250MG - 1 Gram Vial [facility] [id number]-Nx [facility] Reviewed 10/29/2011 12:00 AM ROUTINE VENIPUNCTURE Reviewed 10/29/2011 12:00 AM COMPLETE CBC W/AUTO DIFF WBC Reviewed 10/29/2011 12:00 AM COMPREHEN METABOLIC PANEL Reviewed 10/29/2011 12:00 AM ASSAY THYROID STIM HORMONE Reviewed 05/17/2012 12:00 AM THER/PROPH/DIAG INJ SC/IM Reviewed 05/17/2012 12:00 AM Decadron, Per 1 Mg [facility]# [address]-05 Reviewed 05/17/2012 12:00 AM Depo-Medrol, Per 80 Mg [facility]#6340-5688-83 Reviewed 05/17/2012 12:00 AM Toradol 60 Mg [facility]#7597-5452-46 Reviewed 01/18/2013 12:00 AM THER/PROPH/DIAG INJ SC/IM Reviewed 01/18/2013 12:00 AM Decadron, Per 1 Mg [facility]# [address]-46 Reviewed 01/18/2013 12:00 AM Depo-Medrol, Per 80 Mg [facility]#7135-0076-22 Reviewed 01/18/2013 12:00 AM Toradol 60 Mg [facility]#0008[address]-99 Reviewed 02/10/2010 12:00 AM ROUTINE VENIPUNCTURE Reviewed [...] INJ SC/IM Reviewed 01/18/2011 12:00 AM Decadron Inj.8mg-([facility]) [facility] #[id number] Reviewed 01/18/2011 12:00 AM Depo-Medrol 80 Mg Im/[facility] [phone] Reviewed Results Summary Data and Description Results [...] nail, initial encounter Jun 09 2015 2:53PM Payers Insurance Name Company Name Plan Name Plan Number Policy Number Policy Group Number Start Date Medicare Part A Medicare Part A [id number] N/A [facility] - Community Plan [facility] RHC Comm [id number] N/A Medicare Part B Medicare Of [place] [id number] N/A [place] Medical Assistance [facility] Medical Assistance Prog [id number] N/A [facility] [id number] N/A History of Encounters Visit Date Visit Type Provider 06/09/2015 Office visit MAIKEL HASSAN 05/20/2015 Office visit MAIKEL HASSAN 06/11/2014 Office visit MAIKEL HASSAN 05/30/2014 Office visit MAIKEL HASSAN 01/17/2014 Office visit MAIKEL HASSAN 12/03/2013 [facility] Melissa Seth MD 10/01/2013 Office visit MAIKEL HASSAN 06/11/2013 Office visit MAIKEL HASSAN 05/28/2013 [facility] Melissa Seth MD 02/05/2013 Office visit MAIKEL HASSAN 01/18/2013 Office visit MAIKEL HASSAN 06/08/2012 Office visit MAIKEL HASSAN 05/17/2012 Office visit MAIKEL HASSAN 10/29/2011 Office visit MAIKEL HASSAN 09/16/2011 Office visit MAIKEL HASSAN 09/16/2011 [facility] Melissa Seth MD 07/02/2011 Office visit MAIKEL HASSAN 05/06/2011 Office visit Maikel SAMANOC 01/18/2011 Office visit Maikel Salter PA-C 01/15/2011 Office visit Maikel Salter PA-C 06/18/2010 Office visit Maikel Salter PA-C 03/09/2010 Office visit Maikel Salter PA-C 02/10/2010 Office visit Maikel Salter PA-C
--- OUTSIDE RECORDS SUMMARY | 2019-02-06 09:42 | XMS REPORT ---
Author Author MAIKEL SALTER [facility] Address [address] [place], [place] [address] Care Team Providers Care Advanced Nursing Professor Name Role Phone MAIKEL SALTER PCP Unavailable Allergies and Adverse Reactions Name Reaction Notes NO KNOWN DRUG ALLERGIES Plan of Treatment Planned Activity Comments Planned Date Planned Time Plan/Goal LIPID PANEL 04/05/2016 12:00 AM Medications Active Name Start [...] mg oral tablet extended release 24 hr 09/08/2015 TAKE 1 TABLET DAILY hydrochlorothiazide 25 mg oral tablet 03/04/2016 TAKE 1 TABLET DAILY Name Start Date [...] oral route once daily for 4 days Zithromax Z-Travon 250 mg oral tablet 12/31/2015 01/05/2016 take 2 tablets (500 mg) by oral [...] HC BMI BSA BMI Percentile O2 Sat(%) 10/23/2015 2:12:00 PM 122 mmHg 60 mmHg [...] SC/IM Reviewed 05/06/2011 12:00 AM Decadron Inj.1mg-([facility]) [facility] #[id number] Reviewed 05/06/2011 12:00 AM Depo-Medrol 80 Mg Im/[facility] [id number] Reviewed 05/06/2011 12:00 AM Rocephin, Per 250MG - 1 Gram Vial [facility] [id number]-Mx [facility] Reviewed 10/29/2011 12:00 AM ROUTINE VENIPUNCTURE Reviewed 10/29/2011 12:00 AM COMPLETE CBC W/AUTO DIFF WBC Reviewed 10/29/2011 12:00 AM COMPREHEN METABOLIC PANEL Reviewed 10/29/2011 12:00 AM ASSAY THYROID STIM HORMONE Reviewed 05/17/2012 12:00 AM THER/PROPH/DIAG INJ SC/IM Reviewed 05/17/2012 12:00 AM Decadron, Per 1 Mg [facility]# [address]-54 Reviewed 05/17/2012 12:00 AM Depo-Medrol, Per 80 Mg [facility]#6673-8628-80 Reviewed 05/17/2012 12:00 AM Toradol 60 Mg [facility]#9003-0737-40 Reviewed 01/18/2013 12:00 AM THER/PROPH/DIAG INJ SC/IM Reviewed 01/18/2013 12:00 AM Decadron, Per 1 Mg [facility]# [address]-95 Reviewed 01/18/2013 12:00 AM Depo-Medrol, Per 80 Mg [facility]#4191-2635-74 Reviewed 01/18/2013 12:00 AM Toradol 60 Mg [facility]#3304-3561-38 Reviewed 02/10/2010 12:00 AM ROUTINE VENIPUNCTURE Reviewed [...] SC/IM Reviewed 01/18/2011 12:00 AM Decadron Inj.8mg-([facility]) [facility] #[id number] Reviewed 01/18/2011 12:00 AM Depo-Medrol 80 Mg Im/[facility] [id number] Reviewed Results Summary Data and Description Results [...] on imaging study Apr 05 2016 10:58AM Payers Insurance Name Company Name Plan Name Plan Number Policy Number Policy Group Number Start Date Medicare Part A Medicare Part A [id number] N/A [place] Medical Assistance Program [place] Medical Assistance Prog [id number] N/A zzzTest Medicare A Test Medicare A [id number] N/A [facility] - RHC - [facility] Comm [id number] N/A Medicare Part A Medicare - Lab/Xray [id number] N/A [place] [employer]ch Prog - RHC [place] [employer] Prog - RHC [id number] N/A Medicare Part B Medicare Of [place] [id number] N/A History of Encounters Visit Date Visit Type Provider 10/23/2015 Office visit MAIKEL HASSAN 07/29/2015 Office visit MAIKEL HASSAN 06/09/2015 Office visit MAIKEL HASSAN 05/20/2015 Office visit MAIKEL HASSAN 06/11/2014 Office visit MAIKEL HASSAN 05/30/2014 Office visit MAIKEL HASSAN 01/17/2014 Office visit MAIKEL HASSAN 12/03/2013 [facility] Melissa Seth MD 10/01/2013 Office visit MAIKEL HASSAN 06/11/2013 Office visit MAIKEL HASSAN 05/28/2013 [facility] Melissa Seth MD 02/05/2013 Office visit MAIKEL HASSAN 01/18/2013 Office visit MAIKEL HASSAN 06/08/2012 Office visit MAIKEL HASSAN 05/17/2012 Office visit MAIKEL HASSAN 10/29/2011 Office visit MAIKEL HASSAN 09/16/2011 Office visit MAIKEL HASSAN 09/16/2011 [facility] Melissa Seth MD 07/02/2011 Office visit MAIKEL HASSAN 05/06/2011 Office visit Maikel Salter PA-C 01/18/2011 Office visit Maikel Salter PA-C 01/15/2011 Office visit Maikel Salter PA-C 06/18/2010 Office visit Maikel Salter PA-C 03/09/2010 Office visit Maikel Salter PA-C 02/10/2010 Office visit Maikel HASSAN-C
--- OUTSIDE RECORDS SUMMARY | 2019-02-06 09:42 | XMS REPORT ---
Author Author MAIKEL SALTER [facility] Address [address] [place], [place] [address] Care Team Providers Care Composition Teacher Name Role Phone MAIKEL SALTER PCP Unavailable Allergies and Adverse Reactions Name Reaction Notes NO KNOWN DRUG ALLERGIES Plan of Treatment Planned Activity Comments Planned Date Planned Time Plan/Goal Lipid Profile 04/05/2016 12:00 AM Injection, Subcutaneous/IM 07/26/2016 12:00 AM Medications Active Name Start Date [...] to exceed 30 mL in 24 hours metoprolol succinate 25 mg oral tablet extended release 24 hr 07/05/2016 TAKE 1 TABLET DAILY ipratropium-albuterol 0.5 mg-3 mg(2.5 mg base)/3 mL inhalation solution for nebulization 07/09/2016 inhale 3 milliliters by nebulization route 4 times per day for COPD Symbicort 160-4.5 mcg/actuation inhalation HFA aerosol inhaler 06/24/2016 inhale 2 puffs by inhalation route 2 times per day in the morning and evening hydrochlorothiazide 25 mg oral tablet 07/20/2016 TAKE 1 TABLET DAILY Levaquin 500 mg oral tablet 07/26/2016 08/05/2016 take 1 tablet (500 mg) by oral route once daily for 10 days Name Start Date Expiration [...] by oral route 3 times per day Discontinued Name Start Date Discontinued Date SIG [...] Reviewed 05/06/2011 12:00 AM Decadron Inj.1mg-([facility]) [facility] #[id number] Reviewed 05/06/2011 12:00 AM Depo-Medrol 80 Mg Im/[facility] [id number] Reviewed 05/06/2011 12:00 AM Rocephin, Per 250MG - [address] [facility] [id number]-Hk [facility] Reviewed 10/29/2011 12:00 AM ROUTINE VENIPUNCTURE Reviewed 10/29/2011 12:00 AM COMPLETE CBC W/AUTO DIFF WBC Reviewed 10/29/2011 12:00 AM COMPREHEN METABOLIC PANEL Reviewed 10/29/2011 12:00 AM ASSAY THYROID STIM HORMONE Reviewed 06/24/2016 12:00 AM Decadron, Per [address] [facility]# [address]-12 Reviewed 06/24/2016 12:00 AM Depo-Medrol, Per [address] [facility]#3265-1723-91 Reviewed 06/24/2016 12:00 AM Rocephin [address] [facility]#5396-5318-66 Reviewed 05/17/2012 12:00 AM THER/PROPH/DIAG INJ SC/IM Reviewed 05/17/2012 12:00 AM Decadron, Per [address] [facility]# [address]-58 Reviewed 05/17/2012 12:00 AM Depo-Medrol, Per [address] [facility]#0577-5769-48 Reviewed 05/17/2012 12:00 AM Toradol [address] [facility]#1465-5820-23 Reviewed 01/18/2013 12:00 AM THER/PROPH/DIAG INJ SC/IM Reviewed 01/18/2013 12:00 AM Decadron, Per [address] [facility]# [address]-24 Reviewed 01/18/2013 12:00 AM Depo-Medrol, Per [address] [facility]#6508-7515-16 Reviewed 01/18/2013 12:00 AM Toradol [address] [facility]#4273-7763-08 Reviewed 02/10/2010 12:00 AM ROUTINE VENIPUNCTURE Reviewed [...] Reviewed 01/18/2011 12:00 AM Decadron Inj.8mg-([facility]) [facility] #[id number] Reviewed 01/18/2011 12:00 AM Depo-Medrol 80 Mg Im/[facility] [phone] Reviewed Results Summary Data and Description Results [...] breath on exertion Jul 26 2016 12:12PM Payers Insurance Name Company Name Plan Name Plan Number Policy Number Policy Group Number Start Date Medicare Part A Medicare RHC [id number] N/A [place] Medical Assistance Program [place] [employer] Prog [id number] N/A zzzTest Medicare A Test Medicare A [id number] N/A [facility] - RHC - [facility] Plan [facility] RHC Comm [id number] N/A Medicare Part A Medicare - Lab/Xray [id number] N/A [place] Training Associate Prog - RHC [place] [employer] Prog - RHC [id number] N/A Medicare Part A Medicare Part A [id number] N/A Medicare Part B Medicare Of [place] [id number] N/A History of Encounters Visit Date Visit Type Provider 07/26/2016 Office visit MAIKEL HASSAN 06/24/2016 Office visit MAIKEL HASSAN 10/23/2015 Office visit MAIKEL HASSAN 07/29/2015 Office visit MAIKEL HASSAN 06/09/2015 Office visit MAIKEL HASSAN 05/20/2015 Office visit MAIKEL HASSAN 06/11/2014 Office visit MAIKEL HASSAN 05/30/2014 Office visit MAIKEL HASSAN 01/17/2014 Office visit MAIKEL HASSAN 12/03/2013 [facility] Melissa Seth MD 10/01/2013 Office visit MAIKEL HASSAN 06/11/2013 Office visit MAIKEL HASSAN 05/28/2013 [facility] Melissa Seth MD 02/05/2013 Office visit MAIKEL HASSAN 01/18/2013 Office visit MAIKEL HASSAN 06/08/2012 Office visit MAIKEL HASSAN 05/17/2012 Office visit MAIKEL HASSAN 10/29/2011 Office visit MAIKEL HASSAN 09/16/2011 Office visit MAIKEL HASSAN 09/16/2011 [facility] Melissa Seth MD 07/02/2011 Office visit MAIKEL HASSAN 05/06/2011 Office visit Maikel HASSAN-C 01/18/2011 Office visit Maikel HASSAN-C 01/15/2011 Office visit Maikel Salter PA-C 06/18/2010 Office visit Maikel Salter PA-C 03/09/2010 Office visit Maikel Salter PA-C 02/10/2010 Office visit Maikel Salter PA-C
--- OUTSIDE RECORDS SUMMARY | 2019-02-06 09:43 | XMS REPORT ---
Author MAIKEL Nicole [facility] Address [address] [place], [place] [address] Care Team Providers Care Sr. Vendor Management Associate Name Role Phone MAIKEL SALTER PCP Unavailable [...] oral tablet 01/18/2017 TAKE 1 TABLET DAILY Augmentin 875-125 mg oral tablet 01/18/2017 01/25/2017 take 1 tablet by oral route every 12 hours for 7 days Name Start Date Expiration Date SIG [...] route once daily for 4 days Medrol (Travno) 4 mg oral tablets,dose pack 12/26/2013 take [...] HC BMI BSA BMI Percentile O2 Sat(%) 01/18/2017 12:10:00 PM 122 mmHg 68 mmHg [...] AM Decadron Inj.1mg-([facility]) [facility] #[id number] Reviewed 05/06/2011 12:00 AM Depo-Medrol 80 Mg Im/[facility] [id number] Reviewed 05/06/2011 12:00 AM Rocephin, Per 250MG - 1 Gram Vial [facility] [id number] [facility] Reviewed 10/29/2011 12:00 AM ROUTINE VENIPUNCTURE Reviewed 10/29/2011 12:00 AM COMPLETE CBC W/AUTO DIFF WBC Reviewed 10/29/2011 12:00 AM COMPREHEN METABOLIC PANEL Reviewed 10/29/2011 12:00 AM ASSAY THYROID STIM HORMONE Reviewed 06/24/2016 12:00 AM Decadron, Per 1 Mg [facility]# [address]-17 Reviewed 06/24/2016 12:00 AM Depo-Medrol, Per 80 Mg [facility]#7990-4838-55 Reviewed 06/24/2016 12:00 AM Rocephin 1 gram [facility]#4903-6934-37 Reviewed 07/26/2016 12:00 AM THER/PROPH/DIAG INJ SC/IM [...] 05/17/2012 12:00 AM Decadron, Per 1 Mg [facility]# [address]-38 Reviewed 05/17/2012 12:00 AM Depo-Medrol, Per 80 Mg [facility]#5138-4194-95 Reviewed 05/17/2012 12:00 AM Toradol 60 Mg [facility]#7773-6294-33 Reviewed 01/18/2013 12:00 AM THER/PROPH/DIAG INJ SC/IM Reviewed 01/18/2013 12:00 AM Decadron, Per 1 Mg [facility]# [address]-07 Reviewed 01/18/2013 12:00 AM Depo-Medrol, Per 80 Mg [facility]#0589-4940-01 Reviewed 01/18/2013 12:00 AM Toradol 60 Mg [facility]#6008-8144-33 Reviewed 02/10/2010 12:00 AM ROUTINE VENIPUNCTURE Reviewed [...] Reviewed 01/18/2011 12:00 AM Decadron Inj.8mg-([facility]) [facility] #[id number] Reviewed 01/18/2011 12:00 AM Depo-Medrol 80 Mg Im/[facility] [phone] Reviewed Results Summary Date and Description Results [...] dog, initial encounter Jan 18 2017 12:10PM Payers Insurance Name Company Name Plan Name Plan Number Policy Number Policy Group Number Start Date Medicare RHC Medicare RHC [id number] N/A [place] [employer] [facility] [place] [employer] Prog [id number] N/A zzzTest Medicare A Test Medicare A [id number] N/A [facility] - RHC - [facility] RHC Comm [id number] N/A Medicare Part A Medicare - Lab/Xray [id number] N/A [place] [employer] - RHC [place] [employer] - RHC [id number] N/A Medicare Part A Medicare Part A [id number] N/A Medicare Part B Medicare Of [place] [id number] N/A History of Encounters Visit Date Visit Type Provider 01/18/2017 Office visit MAIKEL HASSAN 12/28/2016 Office [...] Office visit MAIKEL SALTER PA 09/16/2011 [facility] Melissa Seth MD 07/02/2011 Office visit MAIKEL SALTER PA 05/06/2011 Office visit Maikel Salter PA-C 01/18/2011 Office visit Maikel Salter PA-C 01/15/2011 Office visit Maikel Salter PA-C 06/18/2010 Office visit Maikel Salter PA-C 03/09/2010 Office visit Maikel Salter PA-C 02/10/2010 Office visit Maikel Salter PA-C
[2019-02-06] MEDS ORDERED: NS (IVPB) 100 ML ONE (09:44)
--- OUTSIDE RECORDS SUMMARY | 2019-02-06 09:44 | XMS REPORT ---
Author MAIKEL Nicole [facility] Address [address] [place], [place] [address] Care Team Providers Care Church Administrator Name Role Phone MAIKEL SALTER PCP Unavailable [...] oral tablet 01/18/2017 TAKE 1 TABLET DAILY Keflex 500 mg oral capsule 01/24/2017 take 1 capsule (500 mg) by oral [...] AM Decadron Inj.1mg-([facility]) [facility] #[id number] Reviewed 05/06/2011 12:00 AM Depo-Medrol 80 Mg Im/[facility] [phone] Reviewed 05/06/2011 12:00 AM Rocephin, Per 250MG - 1 Gram Vial [facility] [id number]-Lc [facility] Reviewed 10/29/2011 12:00 AM ROUTINE VENIPUNCTURE Reviewed 10/29/2011 12:00 AM COMPLETE CBC W/AUTO DIFF WBC Reviewed 10/29/2011 12:00 AM COMPREHEN METABOLIC PANEL Reviewed 10/29/2011 12:00 AM ASSAY THYROID STIM HORMONE Reviewed 06/24/2016 12:00 AM Decadron, Per 1 Mg [facility]# [address]-26 Reviewed 06/24/2016 12:00 AM Depo-Medrol, Per 80 Mg [facility]#9852-3109-65 Reviewed 06/24/2016 12:00 AM Rocephin 1 gram [facility]#9267-1328-65 Reviewed 07/26/2016 12:00 AM THER/PROPH/DIAG INJ SC/IM [...] Reviewed 12/28/2016 12:00 AM Depo-Medrol 80mg Injection, [facility] Medicare Reviewed 05/17/2012 12:00 AM THER/PROPH/DIAG INJ SC/IM Reviewed 05/17/2012 12:00 AM Decadron, Per 1 Mg [facility]# [address]-93 Reviewed 05/17/2012 12:00 AM Depo-Medrol, Per 80 Mg [facility]#1587-1449-42 Reviewed 05/17/2012 12:00 AM Toradol 60 Mg [facility]#4969-0280-70 Reviewed 01/18/2013 12:00 AM THER/PROPH/DIAG INJ SC/IM Reviewed 01/18/2013 12:00 AM Decadron, Per 1 Mg [facility]# [address]-57 Reviewed 01/18/2013 12:00 AM Depo-Medrol, Per 80 Mg [facility]#4445-4846-13 Reviewed 01/18/2013 12:00 AM Toradol 60 Mg [facility]#9827-2469-84 Reviewed 02/10/2010 12:00 AM ROUTINE VENIPUNCTURE Reviewed [...] AM Decadron Inj.8mg-([facility]) [facility] #[id number] Reviewed 01/18/2011 12:00 AM Depo-Medrol 80 Mg Im/[facility] [phone] Reviewed Results Summary Date and Description Results [...] 11:38AM Medication management Feb 01 2017 11:38AM Payers Insurance Name Company Name Plan Name Plan Number Policy Number Policy Group Number Start Date Medicare [facility] Medicare RH [id number] N/A [place] [employer] [place] Pro[place] [id number] N/A zzzTest Medicare A Test Medicare A [id number] N/A [facility] - [facility] - [facility] [id number] N/A Medicare Part A Medicare - Lab/Xray [id number] N/A [facility] Asst Prog - RHC [facility] Asst Prog - RHC [id number] N/A Medicare Part A Medicare Part A [id number] N/A Medicare Part B Medicare Of [place] [id number] N/A History of Encounters Visit Date Visit Type Provider 02/01/2017 Office visit MAIKEL SALTER PA 01/21/2017 [...] PA 01/17/2014 Office visit MAIKEL HASSAN 12/03/2013 [facility] Melissa Seth MD 10/01/2013 Office visit MAIKEL SALTER PA 06/11/2013 Office visit MAIKEL HASSAN 05/28/2013 [facility] Melissa Seth MD 02/05/2013 Office visit MAIKEL SALTER PA 01/18/2013 Office visit MAIKEL SALTER PA 06/08/2012 Office visit MAIKEL SALTER PA 05/17/2012 Office visit MAIKEL SALTER PA 10/29/2011 Office visit MAIKEL SALTER PA 09/16/2011 Office visit MAIKEL SALTER PA 09/16/2011 [facility] Melissa Seth MD 07/02/2011 Office visit MAIKEL SALTER PA 05/06/2011 Office visit Maikel Salter PA-C 01/18/2011 Office visit Maikel Salter PA-C 01/15/2011 Office visit Maikel Salter PA-C 06/18/2010 Office visit Maikel Salter PA-C 03/09/2010 Office visit Maikel Salter PA-C 02/10/2010 Office visit Maikel Salter PA-C
[2019-02-06] MEDS ORDERED: LEVETIRACETAM INJECTION 1,000 MG in NS (IVPB) 100 ML IV ONE (09:45)
--- OUTSIDE RECORDS SUMMARY | 2019-02-06 09:45 | XMS REPORT ---
Author Author MAIKEL SALTER [facility] Address [address] [place], [place] [address] Care Team Providers Care Arch Support Technician Name Role Phone MAIKEL SALTER PCP [...] 05/06/2011 12:00 AM Decadron Inj.1mg-([facility]) [facility] #[id number] Reviewed 05/06/2011 12:00 AM Depo-Medrol 80 Mg Im/[facility] [phone] Reviewed 05/06/2011 12:00 AM Rocephin, Per 250MG - 1 Gram Vial [facility] [id number]-Ot [facility] Reviewed 10/29/2011 12:00 AM ROUTINE VENIPUNCTURE Reviewed 10/29/2011 12:00 AM COMPLETE CBC W/AUTO DIFF WBC Reviewed 10/29/2011 12:00 AM COMPREHEN METABOLIC PANEL Reviewed 10/29/2011 12:00 AM ASSAY THYROID STIM HORMONE Reviewed 05/17/2012 12:00 AM THER/PROPH/DIAG INJ SC/IM Reviewed 05/17/2012 12:00 AM Decadron, Per [address] [facility]# [address]-21 Reviewed 05/17/2012 12:00 AM Depo-Medrol, Per [address] [facility]#8248-2934-26 Reviewed 05/17/2012 12:00 AM Toradol [address] [facility]#8638-3695-65 Reviewed 01/18/2013 12:00 AM THER/PROPH/DIAG INJ SC/IM Reviewed 01/18/2013 12:00 AM Decadron, Per [address] [facility]# [address]-47 Reviewed 01/18/2013 12:00 AM Depo-Medrol, Per [address] [facility]#8787-6028-31 Reviewed 01/18/2013 12:00 AM Toradol [address] [facility]#5782-8043-66 Reviewed 02/10/2010 12:00 AM ROUTINE VENIPUNCTURE Reviewed [...] 01/18/2011 12:00 AM Decadron Inj.8mg-([facility]) [facility] #[id number] Reviewed 01/18/2011 12:00 AM Depo-Medrol 80 Mg Im/[facility] [phone] Reviewed Results Summary Data and Description Results [...] Date Medicare Part A Medicare Part A [id number] N/A [facility] Comm [id number] N/A Medicare Part B Medicare Of [place] [id number] N/A [place] [facility] [place] [facility] Medical Assistance Prog [id number] N/A [facility] [id number] N/A History of Encounters Visit Date Visit [...] 09/16/2011 Office visit MAIKEL SALTER PA 09/16/2011 [facility] Melissa Seth MD 07/02/2011 Office visit MAIKEL SALTER PA 05/06/2011 Office visit Maikel Salter PA-C 01/18/2011 Office visit Maikel Salter PA-C 01/15/2011 Office visit Maikel Salter PA-C 06/18/2010 Office visit Maikel Salter PA-C 03/09/2010 Office visit Maikel Salter PA-C 02/10/2010 Office visit Maikel Salter PA-C
[2019-02-06 09:46] LABS: FIBRIN DEGRADATION PRODUCTS 1.38 UG/ML (0.00-0.49); INR 0.9 (0.8-1.4); PROTHROMBIN TIME PATIENT 12.7 SEC (12.2-14.7)
--- OUTSIDE RECORDS SUMMARY | 2019-02-06 09:46 | XMS REPORT ---
Author MAIKEL Nicole [facility] Address [address] [place], [place] [address] Care Team Providers Care Advertising Director Name Role Phone MAIKEL SALTER PCP Unavailable [...] (25 mg) by oral route once daily Tessalon Perles 100 mg oral capsule 05/18/2016 take 1 capsule by oral route every 4 hours hydrochlorothiazide 25 mg oral tablet 06/15/2016 TAKE 1 TABLET DAILY promethazine-codeine 6.25-10 mg/5 [...] 3 times a day for 10 days Zithromax Z-Travon 250 mg oral tablet 06/24/2016 [...] HC BMI BSA BMI Percentile O2 Sat(%) 06/24/2016 3:57:00 PM 148 mmHg 72 mmHg [...] 12:00 AM Decadron Inj.1mg-([facility]) [facility] #[id number] Reviewed 05/06/2011 12:00 AM Depo-Medrol 80 Mg Im/[facility] [phone] Reviewed 05/06/2011 12:00 AM Rocephin, Per 250MG - 1 Gram Vial [facility] 0435-574638-[facility] Reviewed 10/29/2011 12:00 AM ROUTINE VENIPUNCTURE Reviewed 10/29/2011 12:00 AM COMPLETE CBC W/AUTO DIFF WBC Reviewed 10/29/2011 12:00 AM COMPREHEN METABOLIC PANEL Reviewed 10/29/2011 12:00 AM ASSAY THYROID STIM HORMONE Reviewed 05/17/2012 12:00 AM THER/PROPH/DIAG INJ SC/IM Reviewed 05/17/2012 12:00 AM Decadron, Per 1 Mg [facility]# [address]-80 Reviewed 05/17/2012 12:00 AM Depo-Medrol, Per 80 Mg [facility]#3203-8467-27 Reviewed 05/17/2012 12:00 AM Toradol 60 Mg [facility]#1178-7272-05 Reviewed 01/18/2013 12:00 AM THER/PROPH/DIAG INJ SC/IM Reviewed 01/18/2013 12:00 AM Decadron, Per 1 Mg [facility]# [address]-22 Reviewed 01/18/2013 12:00 AM Depo-Medrol, Per 80 Mg [facility]#8032-5169-54 Reviewed 01/18/2013 12:00 AM Toradol 60 Mg [facility]#4812-5176-89 Reviewed 02/10/2010 12:00 AM ROUTINE VENIPUNCTURE Reviewed [...] 12:00 AM Decadron Inj.8mg-([facility]) [facility] #[id number] Reviewed 01/18/2011 12:00 AM Depo-Medrol 80 Mg Im/[facility] [id number] Reviewed Results Summary Data and Description Results [...] with acute bronchitis Jun 24 2016 3:57PM Payers Insurance Name Company Name Plan Name Plan Number Policy Number Policy Group Number Start Date Medicare Part A Medicare [facility] [id number] N/A [place] [employer] [place] [employer] Prog [id number] N/A zzzTest Medicare A Test Medicare A [id number] N/A [facility] - [facility] - [facility] Comm [id number] N/A Medicare Part A Medicare - Lab/Xray [id number] N/A [place] [employer] Prog - RHC [place] [employer] - RHC [id number] N/A Medicare Part A Medicare Part A [id number] N/A Medicare Part B Medicare Of [place] [id number] N/A History of Encounters Visit Date Visit Type Provider 06/24/2016 Office visit MAIKEL HASSAN 10/23/2015 Office visit MAIKEL HASSAN 07/29/2015 Office visit MAIKEL HASSAN 06/09/2015 Office visit MAIKEL SALTER PA 05/20/2015 Office visit MAIKEL SALTER PA 06/11/2014 Office visit MAIKEL SALTER PA 05/30/2014 Office visit MAIKEL SALTER PA 01/17/2014 Office visit MAIKEL SALTER PA 12/03/2013 [facility] Melissa Seth MD 10/01/2013 Office visit MAIKEL SALTER PA 06/11/2013 Office visit MAIKEL SALTER PA 05/28/2013 [facility] Melissa Seth MD 02/05/2013 Office visit MAIKEL SALTER PA 01/18/2013 Office visit MAIKEL SALTER PA 06/08/2012 Office visit MAIKEL SALTER PA 05/17/2012 Office visit MAIKEL SALTER PA 10/29/2011 Office visit MAIKEL SALTER PA 09/16/2011 Office visit MAIKEL SALTER PA 09/16/2011 [facility] Melissa Seth MD 07/02/2011 Office visit MAIKEL SALTER PA 05/06/2011 Office visit Maikel Salter PA-C 01/18/2011 Office visit Maikel Salter PA-C 01/15/2011 Office visit Maikel Salter PA-C 06/18/2010 Office visit Maikel Salter PA-C 03/09/2010 Office visit Maikel Salter PA-C 02/10/2010 Office visit Maikel Salter PA-C
--- OUTSIDE RECORDS SUMMARY | 2019-02-06 09:47 | XMS REPORT ---
Author MAIKEL Nicole [facility] Address [address] [place], [place] [address] Care Team Providers Care Environmental Services Technician Name Role Phone MAIKEL SALTER PCP [...] 2 days hydrochlorothiazide 25 mg oral tablet 03/28/2017 TAKE 1 TABLET DAILY metoprolol succinate 25 mg oral tablet extended release 24 hr 03/28/2017 TAKE 1 TABLET DAILY albuterol sulfate 1.25 mg/3 mL inhalation solution for nebulization 03/31/2017 inhale 3 milliliters (1.25 mg) via nebulizer by inhalation route 4 times per day DX J44.9 Sudogest 30 mg oral tablet 04/12/2017 take 1 tablets (60 mg) by oral route every 6 hours as needed Levaquin 500 mg oral tablet 04/11/2017 04/21/2017 [...] Reviewed 05/06/2011 12:00 AM Decadron Inj.1mg-([facility]) [facility] #[id number] Reviewed 05/06/2011 12:00 AM Depo-Medrol 80 Mg Im/[facility] [phone] Reviewed 05/06/2011 12:00 AM Rocephin, Per 250MG - 1 Gram Vial [facility] [id number]-Pr [facility] Reviewed 10/29/2011 12:00 AM ROUTINE VENIPUNCTURE Reviewed 10/29/2011 12:00 AM COMPLETE CBC W/AUTO DIFF WBC Reviewed 10/29/2011 12:00 AM COMPREHEN METABOLIC PANEL Reviewed 10/29/2011 12:00 AM ASSAY THYROID STIM HORMONE Reviewed 06/24/2016 12:00 AM Decadron, Per 1 Mg [facility]# [address]-27 Reviewed 06/24/2016 12:00 AM Depo-Medrol, Per 80 Mg [facility]#9739-1989-84 Reviewed 06/24/2016 12:00 AM Rocephin 1 gram [facility]#0686-5491-72 Reviewed 07/26/2016 12:00 AM THER/PROPH/DIAG INJ SC/IM Reviewed 07/26/2016 12:00 AM Decadron 8mg Injection, [facility] Medicare Reviewed 07/26/2016 12:00 AM Depo-Medrol 80mg Injection, [facility] Medicare Reviewed 07/26/2016 12:00 AM Rocephin 1 gram Injection, [facility] Medicare Reviewed 12/16/2016 12:00 AM COMPLETE CBC W/AUTO DIFF WBC Reviewed 12/16/2016 12:00 AM COMPREHEN METABOLIC PANEL Reviewed 12/16/2016 12:00 AM LIPID PANEL Reviewed 12/28/2016 12:00 AM THERAPEUTIC PROPHYLACTIC/DX INJECTION SUBQ/IM Reviewed 12/28/2016 12:00 AM Decadron 8mg Injection, [facility] Medicare Reviewed 12/28/2016 12:00 AM Depo-Medrol 80mg Injection, [facility] Medicare Reviewed 04/12/2017 12:00 AM LIPID PANEL Returned 04/11/2017 12:00 AM THERAPEUTIC PROPHYLACTIC/DX INJECTION SUBQ/IM Reviewed 04/11/2017 12:00 AM Decadron 8mg Injection, [facility] Medicare Reviewed 04/11/2017 12:00 AM Depo-Medrol 80mg Injection, [facility] Medicare Reviewed 05/17/2012 12:00 AM THER/PROPH/DIAG INJ SC/IM Reviewed 05/17/2012 12:00 AM Decadron, Per 1 Mg [facility]# [address]-18 Reviewed 05/17/2012 12:00 AM Depo-Medrol, Per 80 Mg [facility]#3745-7857-94 Reviewed 05/17/2012 12:00 AM Toradol 60 Mg [facility]#6238-2872-50 Reviewed 01/18/2013 12:00 AM THER/PROPH/DIAG INJ SC/IM Reviewed 01/18/2013 12:00 AM Decadron, Per 1 Mg [facility]# [address]-06 Reviewed 01/18/2013 12:00 AM Depo-Medrol, Per 80 Mg [facility]#3352-0698-63 Reviewed 01/18/2013 12:00 AM Toradol 60 Mg [facility]#1572-7531-38 Reviewed 02/10/2010 12:00 AM ROUTINE VENIPUNCTURE Reviewed [...] Reviewed 01/18/2011 12:00 AM Decadron Inj.8mg-([facility]) [facility] #[id number] Reviewed 01/18/2011 12:00 AM Depo-Medrol 80 Mg Im/[facility] [phone] Reviewed Results Summary Date and Description Results [...] with acute bronchitis Apr 11 2017 3:30PM Payers Insurance Name Company Name Plan Name Plan Number Policy Number Policy Group Number Start Date Medicare RHC Medicare RHC [id number] N/A [place] [employer] [place] [employer] Prog [id number] N/A zzzTest Medicare A Test Medicare A [id number] N/A [facility] - RHC - [facility] RHC Comm [id number] N/A Medicare Part A Medicare - Lab/Xray [id number] N/A [place] [employer] [facility] [employer] - RHC [facility] [employer] [facility] [employer] Pro[employer] - RHC [id number] N/A Medicare Part A Medicare Part A [id number] N/A Medicare Part B Medicare Of [place] [id number] N/A History of Encounters Visit Date Visit [...] visit MAIKEL HASSAN 01/17/2014 Office visit MAIKEL SALTER PA 12/03/2013 [facility] Melissa Seth MD 10/01/2013 Office visit MAIKEL SALTER PA 06/11/2013 Office visit MAIKEL SALTER PA 05/28/2013 [facility] Melissa Seth MD 02/05/2013 Office visit MAIKEL SALTER PA 01/18/2013 Office visit MAIKEL SALTER PA 06/08/2012 Office visit MAIKEL HASSAN 05/17/2012 Office visit MAIKEL SALTER PA 10/29/2011 Office visit MAIKEL SALTER PA 09/16/2011 Office visit MAIKEL SALTER PA 09/16/2011 [facility] Melissa Seth MD 07/02/2011 Office visit MAIKEL SALTER PA 05/06/2011 Office visit Maikel Salter PA-C 01/18/2011 Office visit Maikel Salter PA-C 01/15/2011 Office visit Maikel Salter PA-C 06/18/2010 Office visit Maikel Salter PA-C 03/09/2010 Office visit Maikel Salter PA-C 02/10/2010 Office visit Maikel Salter PA-C
--- NOTE | 2019-02-06 09:48 | Diagnostic Imaging Report ---
PROCEDURE: CT head wo r/o stroke. TECHNIQUE: Multiple contiguous axial images were obtained through the brain without the use of intravenous contrast. Auto Exposure Controls were utilized during the CT exam to meet ALARA standards for radiation dose reduction. INDICATION: Stroke symptoms, vomiting, headache, hypertension. CORRELATION STUDY: CT head 07/21/2015 FINDINGS: There is streak attenuation and motion artifact as limited assessment. The ventricles and sulci appearing age-appropriate. Scattered areas of decreased attenuation favoring likely changes of small vessel ischemic disease and/or senescent changes. Definitive evidence for edema is not otherwise suggested. No intracranial hemorrhage. No hyperdense MCA sign. Basilar cisterns are maintained. Bony calvarium intact. Paranasal sinuses and mastoid air cells are clear. IMPRESSION: 1. No CT evidence for acute intracranial abnormality. Generalized atrophic changes with likely findings of small vessel ischemic disease. If symptoms persist and/or clinically warranted, MRI would be recommended. Dictated by: Dictated on workstation # [id number]
--- OUTSIDE RECORDS SUMMARY | 2019-02-06 09:48 | XMS REPORT ---
Author Author MAIKEL SALTER [facility] Address [address] [place], [place] [id number] Care Team Providers Care Frame Hand Name Role Phone MAIKEL SALTER PCP MAIKEL [...] oral route every 6 hours as needed Cipro 500 mg oral tablet 09/19/2017 09/29/2017 take 1 tablet (500 mg) by oral route 2 times per day for 10 days ipratropium-albuterol 0.5 mg-3 mg(2.5 mg base)/3 mL inhalation solution for nebulization 09/19/2017 inhale 3 milliliters by nebulization route 4 times per day for COPD prednisone 20 mg oral tablet 09/19/2017 10/01/2017 2X4 days 1X4 days 1/2X4 days Name Start Date Expiration Date SIG [...] route every 12 hours for 10 days Discontinued Name Start Date [...] HC BMI BSA BMI Percentile O2 Sat(%) 09/19/2017 1:35:00 PM 112 mmHg 74 mmHg 114 bpm 18 rpm 99.6 F 139 lbs 63 in 24.62 kg/m2 1.67 m2 98 % 08/30/2017 3:57:00 PM 128 mmHg [...] F 137 lbs 63 in 24.27 kg/m2 1.662 m 94 % 06/09/2015 2:46:00 PM 130 mmHg 80 mmHg 96 bpm 16 rpm 97.9 F 141 lbs 66 in 22.7578 kg/m 1.73 m2 98 % 05/20/2015 9:37:00 AM 140 mmHg 78 mmHg 110 bpm 16 rpm 97.9 F 141 lbs 63 in 24.98 kg/m2 1.6861 m 95 % 06/11/2014 2:25:00 PM 132 mmHg 66 mmHg 92 bpm 24 rpm 97.5 F 147 lbs 63 in 26.0396 kg/m 1.72 m2 92 % 05/30/2014 9:45:00 AM 132 mmHg 64 mmHg 74 bpm 24 rpm 97.7 F 146 lbs 63 in 25.86 kg/m2 1.7157 m 92 % 01/17/2014 2:31:00 PM 136 mmHg 68 mmHg 90 bpm 22 rpm 98.2 F 148 lbs 63 in 26.2168 kg/m 1.73 m2 95 % 10/01/2013 3:19:00 PM 124 mmHg 70 mmHg 64 bpm 20 rpm 97.8 F 147 lbs 63 in 26.04 kg/m2 1.7216 m 95 % 06/11/2013 10:31:00 AM 140 mmHg 70 mmHg 92 bpm 24 rpm 97.8 F 143 lbs 63 in 25.3311 kg/m 1.70 m2 95 % 02/05/2013 2:51:00 PM 130 mmHg 78 mmHg 90 bpm 98.2 F 168 lbs 65 in 27.96 kg/m2 1.8694 m 02/05/2013 2:43:00 PM 110 mmHg 76 mmHg 103 bpm 96.6 F 137 lbs 63 in 24.2682 kg/m 1.66 m2 01/18/2013 9:50:00 AM 150 mmHg 66 mmHg 108 bpm 20 rpm 97.8 F 138 lbs 63 in 24.45 kg/m2 1.6681 m 94 % 06/08/2012 9:08:00 AM 110 mmHg 60 mmHg 88 bpm 18 rpm 97.5 F 142 lbs 63 in 25.1539 kg/m 1.69 m2 94 % 05/17/2012 9:33:00 AM 130 mmHg 60 mmHg 98 bpm 18 rpm 146 lbs 63 in 25.86 kg/m2 1.7157 m 95 % 09/16/2011 2:31:00 PM 116 mmHg 76 mmHg 88 bpm 140 lbs 63 in 24.7996 kg/m 1.68 m2 96 % 07/02/2011 10:02:00 AM 122 mmHg 80 mmHg 110 bpm 144 lbs 94 % 05/06/2011 2:58:00 PM 124 mmHg 84 mmHg 106 bpm 155 lbs 63 in 27.4567 kg/m 1.77 m2 96 % 01/18/2011 9:55:00 AM [...] SC/IM Reviewed 05/06/2011 12:00 AM Decadron Inj.1mg-([facility]) [facility] #[id number] Reviewed 05/06/2011 12:00 AM Depo-Medrol 80 Mg Im/[facility] [id number] Reviewed 05/06/2011 12:00 AM Rocephin, Per 250MG - 1 Gram Vial [facility] [id number]-Gp [facility] Reviewed 10/29/2011 12:00 AM ROUTINE VENIPUNCTURE Reviewed 10/29/2011 12:00 AM COMPLETE CBC W/AUTO DIFF WBC Reviewed 10/29/2011 12:00 AM COMPREHEN METABOLIC PANEL Reviewed 10/29/2011 12:00 AM ASSAY THYROID STIM HORMONE Reviewed 06/24/2016 12:00 AM Decadron, Per 1 Mg [facility]# [address]-00 Reviewed 06/24/2016 12:00 AM Depo-Medrol, Per 80 Mg [facility]#4854-2865-97 Reviewed 06/24/2016 12:00 AM Rocephin 1 gram [facility]#9424-0729-93 Reviewed 07/26/2016 12:00 AM THER/PROPH/DIAG INJ SC/IM Reviewed 07/26/2016 12:00 AM Decadron 8mg Injection, [facility] Medicare Reviewed 07/26/2016 12:00 AM Depo-Medrol [...] Reviewed 04/11/2017 12:00 AM Depo-Medrol 80mg Injection, [facility] Medicare Reviewed 05/17/2012 12:00 AM THER/PROPH/DIAG INJ SC/IM Reviewed 05/17/2012 12:00 AM Decadron, Per 1 Mg [facility]# [address]-71 Reviewed 05/17/2012 12:00 AM Depo-Medrol, Per 80 Mg [facility]#2841-9576-56 Reviewed 05/17/2012 12:00 AM Toradol 60 Mg [facility]#6599-3749-03 Reviewed 06/07/2017 12:00 AM THERAPEUTIC PROPHYLACTIC/DX INJECTION SUBQ/IM Reviewed 06/07/2017 12:00 AM Decadron 8mg Injection, [facility] Medicare Reviewed 06/07/2017 12:00 AM Depo-Medrol 80mg Injection, [facility] Medicare Reviewed 08/30/2017 12:00 AM THERAPEUTIC [...] 01/18/2013 12:00 AM Decadron, Per 1 Mg [facility]# [address]-35 Reviewed 01/18/2013 12:00 AM Depo-Medrol, Per 80 Mg [facility]#9610-6101-79 Reviewed 01/18/2013 12:00 AM Toradol 60 Mg [facility]#9786-9161-85 Reviewed 02/10/2010 12:00 AM ROUTINE VENIPUNCTURE Reviewed [...] SC/IM Reviewed 01/18/2011 12:00 AM Decadron Inj.8mg-([facility]) [facility] #[id number] Reviewed 01/18/2011 12:00 AM Depo-Medrol 80 Mg Im/[facility] [id number] Reviewed Results Summary Date and Description Results [...] Acute bronchitis, unspecified Sep 19 2017 1:36PM Payers Insurance Name Company Name Plan Name Plan Number Policy Number Policy Group Number Start Date Medicare [facility] Medicare RHC [id number] N/A [place] [employer] [place] [employer] [place] [id number] N/A zzzTest Medicare A Test Medicare A [id number] N/A [facility] - [facility] - [facility] Comm [id number] N/A Medicare Part A Medicare - Lab/Xray [id number] N/A [place] [employer] - RHC [place] [employer] - RHC [id number] N/A Medicare Part A Medicare Part A [id number] N/A Medicare Part B Medicare Of [place] [id number] N/A History of Encounters Visit Date Visit Type Provider 09/19/2017 Office visit MAIKEL HASSAN 08/30/2017 Office [...] 01/17/2014 Office visit MAIKEL SALTER PA 12/03/2013 [facility] Melissa Seth MD 10/01/2013 Office visit MAIKEL SALTER PA 06/11/2013 Office visit MAIKEL SALTER PA 05/28/2013 [facility] Melissa Seth MD 02/05/2013 Office visit MAIKEL SALTER PA 01/18/2013 Office visit MAIKEL SALTER PA 06/08/2012 Office visit MAIKEL SALTER PA 05/17/2012 Office visit MAIKEL SALTER PA 10/29/2011 Office visit MAIKEL SALTER PA 09/16/2011 Office visit MAIKEL SALTER PA 09/16/2011 [facility] Melissa Seth MD 07/02/2011 Office visit MAIKEL SALTER PA 05/06/2011 Office visit Maikel Salter PA-C 01/18/2011 Office visit Maikel Salter PA-C 01/15/2011 Office visit Maikel Salter PA-C 06/18/2010 Office visit Maikel Salter PA-C 03/09/2010 Office visit Maikel Salter PA-C 02/10/2010 Office visit Maikel Salter PA-C
[2019-02-06 09:49] LABS: ALANINE AMINOTRANSFERASE 23 U/L (0-55); ALBUMIN 4.5 GM/DL (3.2-4.5); ALKALINE PHOSPHATASE 93 U/L (40-136); BILIRUBIN,TOTAL 0.7 MG/DL (0.1-1.0); BUN/CREATININE RATIO 9; CALCIUM 9.8 MG/DL (8.5-10.1); CARBON DIOXIDE 26 MMOL/L (21-32); CHLORIDE 100 MMOL/L (98-107); CREATININE SERUM 0.79 MG/DL (0.60-1.30); GFR ESTIMATED > 60; GLUCOSE 131 MG/DL (70-105); SODIUM 138 MMOL/L (135-145); TOTAL PROTEIN 8.4 GM/DL (6.4-8.2)
--- OUTSIDE RECORDS SUMMARY | 2019-02-06 09:49 | XMS REPORT ---
Author MAIKEL Nicole [facility] Address [address] [place], [place] [address] Care Team Providers Care Cargo Tank Mechanic Name Role Phone MAIKEL SALTER PCP Unavailable [...] Decadron Inj.1mg-([facility]) [facility] #[id number] Reviewed 05/06/2011 12:00 AM Depo-Medrol 80 Mg Im/[facility] [id number] Reviewed 05/06/2011 12:00 AM Rocephin, Per 250MG - 1 Gram Vial [facility] [id number]-Kn [facility] Reviewed 10/29/2011 12:00 AM ROUTINE VENIPUNCTURE Reviewed 10/29/2011 12:00 AM COMPLETE CBC W/AUTO DIFF WBC Reviewed 10/29/2011 12:00 AM COMPREHEN METABOLIC PANEL Reviewed 10/29/2011 12:00 AM ASSAY THYROID STIM HORMONE Reviewed 06/24/2016 12:00 AM Decadron, Per 1 Mg [facility]# [address]-57 Reviewed 06/24/2016 12:00 AM Depo-Medrol, Per 80 Mg [facility]#1750-4474-75 Reviewed 06/24/2016 12:00 AM Rocephin 1 gram [facility]#2042-1975-98 Reviewed 07/26/2016 12:00 AM THER/PROPH/DIAG INJ SC/IM Reviewed 07/26/2016 12:00 AM Decadron 8mg Injection, [facility] Medicare Reviewed 07/26/2016 12:00 AM Depo-Medrol 80mg Injection, [facility] Medicare Reviewed 07/26/2016 12:00 AM Rocephin 1 gram Injection, [facility] Medicare Reviewed 12/16/2016 12:00 AM COMPLETE CBC W/AUTO DIFF WBC Reviewed 12/16/2016 12:00 AM COMPREHEN METABOLIC PANEL Reviewed 12/16/2016 12:00 AM LIPID PANEL Reviewed 12/28/2016 12:00 AM THERAPEUTIC PROPHYLACTIC/DX INJECTION SUBQ/IM Reviewed 12/28/2016 12:00 AM Decadron 8mg Injection, [facility] Medicare Reviewed 12/28/2016 12:00 AM Depo-Medrol 80mg Injection, [facility] Medicare Reviewed 04/12/2017 12:00 AM LIPID PANEL Returned 04/11/2017 12:00 AM THERAPEUTIC PROPHYLACTIC/DX INJECTION SUBQ/IM Reviewed 04/11/2017 12:00 AM Decadron 8mg Injection, [facility] Medicare Reviewed 04/11/2017 12:00 AM Depo-Medrol 80mg Injection, [facility] Medicare Reviewed 05/17/2012 12:00 AM THER/PROPH/DIAG INJ SC/IM Reviewed 05/17/2012 12:00 AM Decadron, Per 1 Mg [facility]# [address]-99 Reviewed 05/17/2012 12:00 AM Depo-Medrol, Per 80 Mg [facility]#0239-7412-40 Reviewed 05/17/2012 12:00 AM Toradol 60 Mg [facility]#3811-4810-96 Reviewed 01/18/2013 12:00 AM THER/PROPH/DIAG INJ SC/IM Reviewed 01/18/2013 12:00 AM Decadron, Per 1 Mg [facility]# [address]-48 Reviewed 01/18/2013 12:00 AM Depo-Medrol, Per 80 Mg [facility]#3847-9653-70 Reviewed 01/18/2013 12:00 AM Toradol 60 Mg [facility]#9195-8929-60 Reviewed 02/10/2010 12:00 AM ROUTINE VENIPUNCTURE Reviewed [...] Decadron Inj.8mg-([facility]) [facility] #[id number] Reviewed 01/18/2011 12:00 AM Depo-Medrol 80 Mg Im/[facility] [id number] Reviewed Results Summary Date and Description Results [...] Number Start Date Medicare RHC Medicare RHC [id number] N/A [place] [employer] [place] [employer] [place] [employer] Prog [id number] N/A zzzTest Medicare A Test Medicare A [id number] N/A [facility] - [facility] - [facility]HC Comm [id number] N/A Medicare Part A Medicare - Lab/Xray [id number] N/A [place] [employer] - RHC [place] [employer] - RHC [id number] N/A Medicare Part A Medicare Part A [id number] N/A Medicare Part B Medicare Of [place] [id number] N/A History of Encounters Visit Date Visit [...] 01/17/2014 Office visit MAIKEL SALTER PA 12/03/2013 [facility] Melissa Seth MD 10/01/2013 Office visit MAIKEL SALTER PA 06/11/2013 Office visit MAIKEL SALTER PA 05/28/2013 [facility] Melissa Seth MD 02/05/2013 Office visit MAIKEL SALTER PA 01/18/2013 Office visit MAIKEL SALTER PA 06/08/2012 Office visit MAIKEL HASSAN 05/17/2012 Office visit MAIKEL SALTER PA 10/29/2011 Office visit MAIKEL SALTER PA 09/16/2011 Office visit MAIKEL SALTER PA 09/16/2011 [facility] Melissa Seth MD 07/02/2011 Office visit MAIKEL SALTER PA 05/06/2011 Office visit Maikel Salter PA-C 01/18/2011 Office visit Maikel Salter PA-C 01/15/2011 Office visit Maikel Salter PA-C 06/18/2010 Office visit Maikel Salter PA-C 03/09/2010 Office visit Maikel Salter PA-C 02/10/2010 Office visit Maikel Salter PA-C
--- OUTSIDE RECORDS SUMMARY | 2019-02-06 09:50 | XMS REPORT ---
Author Author MAIKEL SALTER [facility] Address [address] [place], [place] [address] Care Team Providers Care Internal Medicine Nurse Name Role Phone MAIKEL SALTER PCP Unavailable Allergies and Adverse Reactions Name Reaction Notes NO KNOWN DRUG ALLERGIES Plan of Treatment Planned Activity Comments Planned Date Planned Time Plan/Goal Lipid Profile 04/05/2016 12:00 AM CBC with Auto 12/16/2016 12:00 AM Comprehensive metabolic panel 12/16/2016 12:00 AM Lipid Profile 12/16/2016 12:00 AM Medications Active Name Start Date [...] Reviewed 05/06/2011 12:00 AM Decadron Inj.1mg-([facility]) [facility] #[id number] Reviewed 05/06/2011 12:00 AM Depo-Medrol 80 Mg Im/[facility] [id number] Reviewed 05/06/2011 12:00 AM Rocephin, Per 250MG - 1 Gram Vial [facility] [id number]-Sb Paul Reviewed 10/29/2011 12:00 AM ROUTINE VENIPUNCTURE Reviewed 10/29/2011 12:00 AM COMPLETE CBC W/AUTO DIFF WBC Reviewed 10/29/2011 12:00 AM COMPREHEN METABOLIC PANEL Reviewed 10/29/2011 12:00 AM ASSAY THYROID STIM HORMONE Reviewed 06/24/2016 12:00 AM Decadron, Per 1 Mg [facility]# [address]-95 Reviewed 06/24/2016 12:00 AM Depo-Medrol, Per 80 Mg [facility]#9225-4041-19 Reviewed 06/24/2016 12:00 AM Rocephin 1 gram [facility]#9960-7370-99 Reviewed 07/26/2016 12:00 AM THER/PROPH/DIAG INJ SC/IM Reviewed 07/26/2016 12:00 AM Decadron 8mg Injection, [facility] Medicare Reviewed 07/26/2016 12:00 AM Depo-Medrol 80mg Injection, [facility] Medicare Reviewed 07/26/2016 12:00 AM Rocephin 1 gram Injection, [facility] Medicare Reviewed 05/17/2012 12:00 AM THER/PROPH/DIAG INJ SC/IM Reviewed 05/17/2012 12:00 AM Decadron, Per 1 Mg [facility]# [address]-75 Reviewed 05/17/2012 12:00 AM Depo-Medrol, Per 80 Mg [facility]#7180-6503-79 Reviewed 05/17/2012 12:00 AM Toradol 60 Mg [facility]#1199-8823-26 Reviewed 01/18/2013 12:00 AM THER/PROPH/DIAG INJ SC/IM Reviewed 01/18/2013 12:00 AM Decadron, Per 1 Mg [facility]# [address]-68 Reviewed 01/18/2013 12:00 AM Depo-Medrol, Per 80 Mg [facility]#6660-6596-19 Reviewed 01/18/2013 12:00 AM Toradol 60 Mg [facility]#0846-5414-02 Reviewed 02/10/2010 12:00 AM ROUTINE VENIPUNCTURE Reviewed [...] Reviewed 01/18/2011 12:00 AM Decadron Inj.8mg-([facility]) [facility] #[id number] Reviewed 01/18/2011 12:00 AM Depo-Medrol 80 Mg Im/[facility] 0009-655153 Reviewed Results Summary Data and Description Results [...] Number Start Date Medicare RHC Medicare RHC [id number] N/A [place] [employer] [place] Prog [id number] N/A zzzTest Medicare A Test Medicare A [id number] N/A [facility] - RHC - Replaced By [facility] RHC Comm [id number] N/A Medicare Part A Medicare - Lab/Xray [id number] N/A [place] [employer] Pro[employer] - RHC [place] [employer] - RHC [id number] N/A Medicare Part A Medicare Part A [id number] N/A Medicare Part B Medicare Of [place] [id number] N/A History of Encounters Visit Date Visit Type Provider 07/26/2016 Office visit MAIKEL HASSAN 06/24/2016 Office visit MAIKEL HASSAN 10/23/2015 Office visit MAIKEL HASSAN 07/29/2015 Office visit MAIKEL HASSAN 06/09/2015 Office visit MAIKEL HASSAN 05/20/2015 Office visit MAIKEL HASSAN 06/11/2014 Office visit MAIKEL HASSAN 05/30/2014 Office visit MAIKEL HASSAN 01/17/2014 Office visit MAIKEL HASSAN 12/03/2013 [facility] Melissa Seth MD 10/01/2013 Office visit MAIKEL SALTER PA 06/11/2013 Office visit MAIKEL SALTER PA 05/28/2013 [facility] Melissa Seth MD 02/05/2013 Office visit MAIKEL SALTER PA 01/18/2013 Office visit MAIKEL SALTER PA 06/08/2012 Office visit MAIKEL SALTER PA 05/17/2012 Office visit MAIKEL SALTER PA 10/29/2011 Office visit MAIKEL SALTER PA 09/16/2011 Office visit MAIKEL SALTER PA 09/16/2011 [facility] Melissa Seth MD 07/02/2011 Office visit MAIKEL SALTER PA 05/06/2011 Office visit Maikel Salter PA-C 01/18/2011 Office visit Maikel Salter PA-C 01/15/2011 Office visit Maikel Salter PA-C 06/18/2010 Office visit Maikel Salter PA-C 03/09/2010 Office visit Maikel Salter PA-C 02/10/2010 Office visit Maikel Salter PA-C
--- OUTSIDE RECORDS SUMMARY | 2019-02-06 09:50 | XMS REPORT | Continuity of Care Document ---
Author Organization Unknown Address Unknown Allergies Active Description Code Type Severity Reaction Onset Reported/Identified Relationship to Patient Clinical Status Yes No Known Drug Allergies [id number] Drug Allergy Unknown N/A 07/21/2015 Medications There is no data. Problems Date Dx Coded Attending Type Code Diagnosis Diagnosed By 07/21/2015 PARAS ARCHIBALD MD Ot S01.112A 07/21/2015 PARAS ARCHIBALD MD D Ot S01.21XA 07/21/2015 PARAS ARCHIBALD MD D Ot W01.0XXA 07/21/2015 PARAS ARCHIBALD MD D Ot Y92.481 07/21/2015 PARAS ARCHIBALD MD D Ot Y99.8 07/21/2015 CRISTELA WASHINGTON, PARAS D Ot Z23 07/21/2015 CRISTELA [place]ASHINGTON, PARAS D Ot Z79.82 07/26/2015 MARIZOL PIERCE Ot S01.112D Procedures There is no data. Results There is no data. Encounters ACCT No. Visit Date/Time Discharge Status Pt. Type Provider Facility Loc./Unit Complaint [id number] 01/30/2019 12:23:00 01/30/2019 23:59:59 [facility] Outpatient JOHANNA SALTER [id number] 01/23/2019 11:05:39 01/23/2019 23:59:59 [facility] Outpatient JOHANNA SALTER [id number] 01/16/2019 11:15:33 01/16/2019 23:59:59 [facility] Out[facility] JOHANNA SALTER [id number] 11/14/2018 15:09:59 11/14/2018 23:59:59 [facility] Outpatient JOHANNA SALTER [id number] 08/22/2018 15:32:24 08/22/2018 23:59:59 [facility] Outpatient JOHANNA SALTER [id number] 07/27/2018 14:11:47 07/27/2018 23:59:[address] [facility] Outpatient JOHANNA SALTER [id number] 06/20/2018 10:14:35 06/20/2018 23:59:59 [facility] GAETANO, JOHANNA Torres [id number] 05/16/2018 11:27:40 05/16/2018 23:59:59 [facility] Outpatient GAETANO, JOHANNA Torres [id number] 04/10/2018 14:52:35 04/10/2018 23:59:59 [facility] Outpatient GAETANO, JOHANNA Torres [id number] 01/31/2018 10:32:37 01/31/2018 23:59:59 [facility] Outpatient GAETANO, JOHANNA Torres [id number] 01/03/2018 14:56:10 01/03/2018 23:59:59 [facility] Outpatient GAETANO, JOHANNA Torres [id number] 11/29/2017 10:53:12 11/29/2017 23:59:59 [facility] Outpatient GAETANO, JOHANNA Torres [id number] 09/19/2017 11:11:44 09/19/2017 23:59:59 [facility] Outpatient GAETANO, JOHANNA Torres [id number] 09/01/2017 07:14:13 09/01/2017 23:59:59 [facility] Outpatient GAETANO, JOHANNA Torres [id number] 06/07/2017 11:36:49 06/07/2017 23:59:59 [facility] Outpatient GAETANO, JOHANNA Torres [id number] 04/12/2017 09:16:17 04/12/2017 23:59:59 [facility] Outpatient GAETANO, JOHANNA oTrres [id number] 04/11/2017 15:13:21 04/11/2017 23:59:59 [facility] Outpatient GAETANOJOHANNA Melissa [id number] 02/01/2017 10:02:59 02/01/2017 23:59:59 [facility] Outpatient GAETANO, JOHANNA Melissa [id number] 01/21/2017 09:23:15 01/21/2017 23:59:59 [facility] Outpatient GAETANO, JOHANNA Melissa [id number] 01/18/2017 10:08:47 01/18/2017 23:59:59 [facility] Outpatient GAETANO, JOHANNA Melissa [id number] 12/28/2016 15:19:18 12/28/2016 23:59:59 [facility] Outpatient GAETANO, JOHANNA Melissa [id number] 07/26/2016 11:56:35 07/26/2016 23:59:59 [facility] Outpatient GAETANO, JOHANNA Melissa [id number] 06/24/2016 17:24:47 06/24/2016 23:59:59 [facility] Outpatient GAETANO, JOHANNA Melissa [id number] 10/23/2015 15:06:06 10/23/2015 23:59:59 [facility] Outpatient JOHANNA SALTER [id number] 07/29/2015 15:01:17 07/29/2015 23:59:59 [facility] Outpatient JOHANNA SALTER [id number] 06/09/2015 15:20:04 06/09/2015 23:59:59 [facility] Outpatient JOHANNA SALTER [id number] 05/20/2015 10:16:59 05/20/2015 23:59:59 [facility] Outpatient JOHANNA SALTER [id number] 06/11/2014 15:01:19 06/11/2014 23:59:59 [facility] Outpatient JOHANNA SALTER [id number] 05/30/2014 09:53:31 05/30/2014 23:59:59 [facility] Outpatient JOHANNA SALTER [id number] 01/17/2014 15:03:12 01/17/2014 23:59:59 [facility] Outpatient JOHANNA SALTER [id number] 12/17/2013 03:11:56 12/17/2013 23:59:59 [facility] Outpatient Melissa Seth Michele [id number] 10/01/2013 15:48:44 10/01/2013 23:59:59 [facility] Outpatient JOHANNA SALTER [id number] 07/26/2015 16:12:00 07/26/2015 16:47:00 DIS Emergency MARIZOL PIERCE [facility] ER [id number] 07/21/2015 13:35:00 07/21/2015 15:25:00 DIS Emergency PARAS ARCHIBALD MD [facility] ER
[2019-02-06 09:54] VITALS: BP 217/149
[2019-02-06 09:57] LABS: ACETAMINOPHEN < 10 UG/ML (10-30)
[2019-02-06 09:58] LABS: ABG BASE EXCESS 1.4 MMOL/L (-2.5-2.5); ABG OXYGEN SATURATION 99 % (94-100); ABG PO2 351 MMHG (79-93); ABG TCO2 34.2 MMOL/L (21.0-31.0)
[2019-02-06 10:01] LABS: ABG PCO2 101 MMHG (35-45); ALLENS TEST YES-POS
[2019-02-06 10:02] LABS: INSPIRED O2 100% BIPAP; PATIENT TEMP 95.8; VENTILATOR NO
--- NOTE | 2019-02-06 10:05 | NUR ---
Pt to CT with [facility] editor house organ.
--- NOTE | 2019-02-06 10:09 | ED Neurological Problem ---
General Chief Complaint: Neuro-Stroke Like Symptoms Stated Complaint: HEADACHE Source: other (EX- GIVES ALL INFORMATION, BUT IS LIMITED HISTORIAN --PT AND EX- STILL LIVE TOGETHER) Exam Limitations: clinical condition, other (PT IS NOT TALKING OR FOLLOWING COMMANDS) History of Present Illness Date Seen by Provider: Feb 06, 2019 Time Seen by Provider: 09:15 Initial Comments PT ARRIVES VIA POV FROM HOME--PT LIVES WITH EX-, WHO BROUGHT HER TO ER NEEDS ASSIST OUT OF VEHICLE, PT IS ABLE TO STAND WITH ASSIST FOR TRANSFERS EX- REPORTS THAT LAST KNOWN WELL TIME WAS 2100 HE DOES REPORT THAT SHE WAS VOMITING IN THE MIDDLE OF THE NIGHT, BUT DOES NOT KNOW TIME HE REPORTS THAT SHE DID GET UP AT 0730 AND C/O HEADACHE, BUT WAS NOT ACTING RIGHT AT ALL, AND NOT TALKING RIGHT AT THAT TIME. . SHE WAS ABLE TO WALK TO THE KITCHEN AT THAT TIME PT IS NOT TALKING OR FOLLOWING COMMANDS ON ARRIVAL--IS UNCLEAR WHEN HE FIRST NOTICED THAT NO HISTORY OF SIMILAR NO RECENT ILLNESS NO OTHER INFORMATION IS AVAILABLE AT THIS TIME. PCP: WISAM SALTER Allergies and Home Medications Allergies Coded Allergies: No Known Drug Allergies (Unverified , 07/21/15) Home Medications Acetaminophen 325 Mg/10.15 Ml Soln, 325 MG PO Q6H PRN for PAIN-MILD Prescribed by: FRANCIE SEBASTIAN on 03/01/192114 Apixaban 5 Mg Tablet, 5 MG PO BID Prescribed by: FRNACIE SEBASTIAN on 03/01/192114 Aspirin 81 Mg Tab.chew, 81 MG PO DAILY Prescribed by: FRANCIE SEBASTIAN on 03/01/192114 Donepezil HCl 5 Mg Tablet, 5 MG PO HS Prescribed by: FRANCIE SEBASTIAN on 03/01/192114 Hydrochlorothiazide 25 Mg Tablet, 25 MG PO DAILY, (Reported) Levetiracetam 1,000 Mg Tablet, 1,000 MG PO BID Prescribed by: FRANCIE SEBASTIAN on 03/01/192114 Losartan Potassium 50 Mg Tablet, 50 MG PO DAILY, (Reported) Metoprolol Tartrate 25 Mg Tablet, 25 MG PO BID Prescribed by: FRANCIE SEBASTIAN on 03/01/192114 Patient Home Medication List Home Medication List Reviewed: Yes Review of Systems Review of Systems Constitutional: other (UNABLE TO OBTAIN FROM PT) Psychiatric/Neurological: See HPI Past Rzmaggz-Xujfbk-Qwmlmj Hx Patient Social History Alcohol Use: Denies Use Recreational Drug Use: No 2nd Hand Smoke Exposure: No Recent Foreign Travel: No Contact w/Someone Who Travel: No Immunizations Up To Date Tetanus Booster (TDap): Less than 5yrs (2014) Past Medical History Surgeries: Yes (LEFT HIP REPLACEMENT; CATARACTS) Eye Surgery, Joint Replacement, Orthopedic Respiratory: Yes COPD Cardiac: Yes (TACHYCARDIA) Hypertension Neurological: No Genitourinary: No Gastrointestinal: No Musculoskeletal: Yes Arthritis Endocrine: No HEENT: Yes Cataract Cancer: No Psychosocial: No Integumentary: No Blood Disorders: No Adverse Reaction/Blood Tranf: No Physical Exam Vital Signs Capillary Refill : Height, Weight, BMI Height: 5'2" Weight: 135lbs. oz. 61.764243sq; BMI Method:Estimated General Appearance: moderate distress, other (PT WITH BLANK STARE AND HEAD TURNED TO RIGHT--LEFT SIDED NEGLECT; PT IS NOT TALKING OR FOLLOWING COMMANDS;SLIGHTLY SNOROUS BREATHING) HEENT: other (+ NYSTAGMUS; PUPILS EQUAL BUT WILL NOT TRACK --HAS LEFT SIDED NEGLECT. ) Neck: normal inspection Respiratory: respiratory distress, rales (LEFT > RIGHT ), other (SLIGHTLY SNOROUS BREATHING; O2 SATS IN 80'S ON ARRIVAL) Cardiovascular: irregularly irregular, other (PT FLUCTUATING FROM TACHYCARDIA TO BRADYCARDIA, VERY IRREGULAR, WITH MULTIPLE PVC'S AND INTERMITTENT BIGEMINY) Gastrointestinal: soft Extremities: normal capillary refill, pedal edema (TRACE BILATERALLY) Neurologic/Psychiatric: other (PT WITH LEFT SIDED NEGLECT, HEAD TURNED TO RIGHT. BLANK STARE. NOT TALKING OR FOLLOWING COMMANDS. PT WAS ABLE TO STAND WITH 2 PERSON ASSIST ON ARRIVAL, BUT IS NOT MOVING ANY OF HER EXTREMITIES AT THIS TIME. ) Stroke NIH Stroke Scale Assessment Select: Initial UNABLE TO COMPLETE DUE TO PT NOT TALKING OR FOLLOWING COMM ANDS, OR MOVING ANY OF HER EXTREMITIES. Level of Consciousness-Questions: 2=Answer neither question (2), LOC Commands: 2=Performs neither task (2), Best Language: 3=Mute (3), Extinction & Inattention: 2=ProfoundHemiInattention (2), Total: 9 Stroke Thrombolytic Exclusion Age 18 or Over: Yes Acute intenal hemorrhage: No History of CVA: No Uncontrolled Coagulation Defec: No Intracranial Hemorrhage: No Severe Hypertension: Yes GI or Bleed: No Subarachnoid Hemorrhage: No Intracranial Neoplasm/Aneurysm: No Oral Anticoagulants: No Surgery or Trauma: No Puncture of Non-Compressible V: No Recent CPR: No Diabetic Hemorrhagic Retinopat: No Organ Biopsy: No Recent Obstetric Delivery: No Glucose: No Significant Hepatic Dysfunctio: No NIH Stoke Scale >22: No Bacterial Endocarditis: No Pericarditis: No Improving Symptoms: No Platelets: No TPA Contraindication: Yes (ONSET UNKNOWN--LKWT 2100 LAST PM) IV - TPa Received IV - TPa Procedure Performed?: No Progress/Results/Core Measures Results/Orders Lab Results Laboratory Tests Test 02/06/19 09:13 02/06/19 09:19 02/06/19 09:25 02/06/19 09:50 Range/Units Lab Scanned Report Referred Lab Report [id number] White Blood Count 8.6 4.3-11.0 10^3/uL Red Blood Count 5.06 4.35-5.85 10^6/uL Hemoglobin 14.6 11.5-16.0 G/DL Hematocrit 46 35-52 % Mean Corpuscular Volume 92 80-99 FL Mean Corpuscular Hemoglobin 29 25-34 PG Mean Corpuscular Hemoglobin Concent 32 32-36 G/DL Red Cell Distribution Width 12.8 10.0-14.5 % Platelet Count 314 130-400 10^3/uL Mean Platelet Volume 10.1 7.4-10.4 FL Neutrophils (%) (Auto) 79 H 42-75 % Lymphocytes (%) (Auto) 14 12-44 % Monocytes (%) (Auto) 6 0-12 % Eosinophils (%) (Auto) 0 0-10 % Basophils (%) (Auto) 0 0-10 % Neutrophils # (Auto) 6.8 1.8-7.8 X 10^3 Lymphocytes # (Auto) 1.2 1.0-4.0 X 10^3 Monocytes # (Auto) 0.5 0.0-1.0 X 10^3 Eosinophils # (Auto) 0.0 0.0-0.3 10^3/uL Basophils # (Auto) 0.0 0.0-0.1 10^3/uL Prothrombin Time 12.7 12.2-14.7 SEC INR Comment 0.9 0.8-1.4 Activated Partial Thromboplast Time 33 24-35 SEC D-Dimer 1.38 H 0.00-0.49 UG/ML Sodium Level 138 135-145 MMOL/L Potassium Level 4.0 3.6-5.0 MMOL/L Chloride Level 100 98-107 MMOL/L Carbon Dioxide Level 26 21-32 MMOL/L Anion Gap 12 5-14 MMOL/L Blood Urea Nitrogen 7 7-18 MG/DL Creatinine 0.79 0.60-1.30 MG/DL Estimat Glomerular Filtration Rate > 60 BUN/Creatinine Ratio 9 Glucose Level 131 H 70-105 MG/DL Calcium Level 9.8 8.5-10.1 MG/DL Corrected Calcium 9.4 8.5-10.1 MG/DL Magnesium Level 2.0 1.8-2.4 MG/DL Total Bilirubin 0.7 0.1-1.0 MG/DL Aspartate Amino Transf (AST/SGOT) 27 5-34 U/L Alanine Aminotransferase (ALT/SGPT) 23 0-55 U/L Alkaline Phosphatase 93 40-136 U/L Troponin I < 0.028 <0.028 NG/ML B-Type Natriuretic Peptide 162.7 H <100.0 PG/ML Total Protein 8.4 H 6.4-8.2 GM/DL Albumin 4.5 3.2-4.5 GM/DL TSH Sherrill Testing 4.72 0.35-4.94 UIU/ML Acetaminophen Level < 10 L 10-30 UG/ML Serum Alcohol < 10 <10 MG/DL Glucometer 169 H 70-110 MG/DL Blood Gas Puncture Site RT BRACHIAL Blood Gas Patient Temperature 95.8 Arterial Blood pH 7.10 *L 7.37-7.43 Arterial Blood Partial Pressure CO2 101 *H 35-45 MMHG Arterial Blood Partial Pressure O2 351 H 79-93 MMHG Arterial Blood HCO3 31 H 23-27 MMOL/L Arterial Blood Total CO2 34.2 H 21.0-31.0 MMOL/L Arterial Blood Oxygen Saturation 99 94-100 % Arterial Blood Base Excess 1.4 -2.5-2.5 MMOL/L Ronaldo Test YES-POS Blood Gas Ventilator Setting NO Blood Gas Inspired Oxygen 100% BIPAP Test 02/06/19 10:25 02/06/19 10:42 Range/Units Urine Color YELLOW Urine Clarity CLEAR Urine pH 7 5-9 Urine Specific [place] 1.010 L 1.016-1.022 Urine Protein 4+ NEGATIVE Urine Glucose (UA) 1+ H NEGATIVE Urine Ketones NEGATIVE NEGATIVE Urine Nitrite NEGATIVE NEGATIVE Urine Bilirubin NEGATIVE NEGATIVE Urine Urobilinogen NORMAL NORMAL MG/DL Urine Leukocyte Esterase NEGATIVE NEGATIVE Urine RBC (Auto) 2+ H NEGATIVE Urine RBC 5-10 H /HPF Urine WBC RARE /HPF Urine Squamous Epithelial Cells RARE /HPF Urine Crystals NONE /LPF Urine Bacteria TRACE /HPF Urine Casts PRESENT /LPF Urine Hyaline Casts RARE /LPF Urine Mucus NEGATIVE /LPF Urine Culture Indicated YES Urine Opiates Screen NEGATIVE NEGATIVE Urine Oxycodone Screen NEGATIVE NEGATIVE Urine Methadone Screen NEGATIVE NEGATIVE Urine Propoxyphene Screen NEGATIVE NEGATIVE Urine Barbiturates Screen NEGATIVE NEGATIVE Ur Tricyclic Antidepressants Screen NEGATIVE NEGATIVE Urine Phencyclidine Screen NEGATIVE NEGATIVE Urine Amphetamines Screen NEGATIVE NEGATIVE Urine Methamphetamines Screen NEGATIVE NEGATIVE Urine Benzodiazepines Screen NEGATIVE NEGATIVE Urine Cocaine Screen NEGATIVE NEGATIVE Urine Cannabinoids Screen NEGATIVE NEGATIVE Blood Gas Puncture Site RT BRACHIAL Blood Gas Patient Temperature 96.8 Arterial Blood pH 7.08 *L 7.37-7.43 Arterial Blood Partial Pressure CO2 108 *H 35-45 MMHG Arterial Blood Partial Pressure O2 203 H 79-93 MMHG Arterial Blood HCO3 31 H 23-27 MMOL/L Arterial Blood Total CO2 34.4 H 21.0-31.0 MMOL/L Arterial Blood Oxygen Saturation 99 94-100 % Arterial Blood Base Excess 1.2 -2.5-2.5 MMOL/L Ronaldo Test YES-POS Blood Gas Ventilator Setting NO Blood Gas Inspired Oxygen 60% Micro Results Microbiology 02/06/19 Urine Culture - Final, Complete NO GROWTH My Orders Orders - VINAYAK GOLD DO Cbc With Automated Diff (02/06/19 09:28) Protime With Inr (02/06/19 09:28) Partial Thromboplastin Time (02/06/19 09:28) Comprehensive Metabolic Panel (02/06/19 09:28) Fibrin Degradation Products (02/06/19 09:28) Troponin I (02/06/19 09:28) Ua Culture If Indicated (02/06/19 09:28) Chest 1 View, Ap/Pa Only (02/06/19 09:28) Catheter(Urinary) Insert & Ass 03,15 (02/06/19 09:28) Ekg Tracing (02/06/19 09:28) Nothing By Mouth (02/06/19 Lunch) Accucheck Stat ONCE (02/06/19 09:28) Ed Iv/Invasive Line Start (02/06/19 09:28) Ed Iv/Invasive Line Start (02/06/19 09:28) Vital Signs Stroke Patient Q15M (02/06/19 09:28) Ct Head Wo-R/O Stroke (02/06/19 09:28) O2 (02/06/19 09:28) Intake & Output 06,14,22 (02/06/19 09:28) Labetalol Injection (Normodyne Injection (02/06/19 09:28) Monitor-Rhythm Ecg Trace Only (02/06/19:28) Dysphagia Screening Tool (02/06/19:28) Sao2 W/End-Tidal Monitoring (O Q15M (02/06/19 09:28) I-Stat Bedside Testing (02/06/19:28) Rt Request For Service (02/06/19:28) Acetaminophen (02/06/19 09:28) Alcohol (02/06/19:28) Arterial Blood Gas (02/06/19 09:50) BNP (02/06/19:28) Drug Screen Stat (Urine) (02/06/19 09:28) Magnesium (02/06/19:28) Thyroid Analyzer (02/06/19:28) Levetiracetam Injection (Keppra Injectio (02/06/19 09:36) Lorazepam Injection (Ativan Injection) (02/06/19 09:36) Levetiracetam Injection (Keppra Injectio (02/06/19 09:45) Ns (Ivpb) (Sodium Chloride 0.9% Ivpb Bag (02/06/19 09:44) Ct Angio Head/Neck (02/06/19 09:52) Iohexol Injection (Omnipaque 350 Mg/Ml 1 (02/06/19 10:15) Received Contrast (Hold Metformin- Contr (02/06/19 10:15) Ns (Ivpb) (Sodium Chloride 0.9% Ivpb Bag (02/06/19 10:15) Arterial Blood Gas (02/06/19 10:42) Labetalol Injection (Normodyne Injection (02/06/19 10:45) Arterial Blood Draw (02/06/19 ) Lorazepam Injection (Ativan Injection) (02/06/19 11:00) Lorazepam Injection (Ativan Injection) (02/06/19 10:44) Urine Culture (02/06/19 10:25) Lorazepam Injection (Ativan Injection) (02/06/19 11:00) Ed Iv/Invasive Line Start (02/06/19 11:19) Ns Iv 1000 Ml (Sodium Chloride 0.9%) (02/06/19 11:19) Sodium Bicarbonate 8.4% Vial (Sodium Bic (02/06/19 11:30) Sodium Bicarbonate 8.4% Vial (Sodium Bic (02/06/19 11:30) Iv Infusion <= First Hr Ed (02/06/19 ) Medications Given in ED Vital Signs/I&O FSBG Bedside Testing Finger Stick Blood Glucose: 169 Blood Glucose Action Taken: radha Progress Progress Note : Progress Note PT IMMEDIATELY PLACED ON CPAP AND O2 SATS UP TO 96-99% 0940--PT ACTIVELY SEIZING ON HER WAY BACK FROM CT, LASTED 30 SECONDS-- RIGHT ARM, HEAD, AND SOME MINOR INVOLVEMENT OF RIGHT FOOT--GIVEN ATIVAN AND KEPPRA 1048-PT HAD ANOTHER 30 SECOND SEIZURE OF SAME NATURE--GIVEN ADDITIONAL ATIVAN BP 217/149--GIVEN LABETALOL AND BP DOWN TO 150'S/90'S MULTIPLE FAMILY MEMBERS ARE HERE, AND PT'S DAUGHTER AND HER EX-, WELL OTHER FAMILY MEMBERS AGREE THAT PT IS DNR/DNI Initial ECG Impression Date: Feb 06, 2019 Initial ECG Impression Time: 09:53 Initial ECG Rate: 99 Initial ECG Rhythm: Normal Sinus Diagnostic Imaging Comments CT HEAD--NO ACUTE PROCESS, PER RADIOLOGIST REPORT AT 0952 CT ANGIOGRAM HEAD/NECK--NO ACUTE LARGE VESSEL OCCLUSION OR ACUTE PROCESS, PER RADIOLOGIST REPORT AT 1057 Reviewed: Reviewed by Me Critical Care Note Critical Care Total Time (minutes) 60 Departure Communication (Admissions) NO ICU OR MEDICAL BEDS AVAILABLE HERE--ON FULL DIVERSION FAMILY WILL NOT MAKE DECISION ABOUT TRANSFERRING PT, WAITING FOR OTHER FAMILY TO GET HERE FROM OUT OF TOWN 1130--FAMILY STILL WILL NOT MAKE DECISION 1212--STILL WAITING FOR OTHER FAMILY TO ARRIVE BEFORE THEY WILL MAKE DECISION 1244--FAMILY HAS AGREED WITH TRANSFER TO ' FAMILY INFORMED OF REQUEST BY THAT PT BE INTUBATED FOR TRANSPORT TO [facility], AND CAN BE DISCONTINUED AFTER ARRIVAL THERE IF FAMILY WISHES. FAMILY IS IN AGREEMENT WITH THIS PLAN. 1100--CALLED NEUROLOGY, SPOKE WITH DR. MCDONOUGH. 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 HE DOES ACCEPT PT FOR TRANSFER/ADMIT IF FAMILY AGREES. 1247--CALLED , AND INFORMED THEM OF FAMILY'S DECISION FOR TRANSFER. THEY ADVISE INTUBATION FOR TRANSPORT TO [facility]. . [facility] NOTIFIED 1325--[facility] HERE, AND WILL INTUBATE PT FOR TRANSPORT. Impression Primary Impression: Altered mental status Additional Impressions: New onset seizure POSSIBLE STROKE Malignant hypertension Acute respiratory failure with hypoxia and hypercapnia Acidosis Encephalopathy Disposition: 02 XFER SHT-TRM HOSP Condition: Stable (BUT SERIOUS) Transfer Transfer Facility: Method of Transfer: Air Departure-Patient Inst. Referrals: NO,LOCAL PHYSICIAN (PCP/Family) Primary Care Physician VINAYAK GOLD DO Feb 06, 2019 10:09
[2019-02-06 10:10] LABS: TSH (THYROID ANALYZER) 4.72 UIU/ML (0.35-4.94)
[2019-02-06] MEDS ORDERED: IOHEXOL 350 MG/ML 100 ML (OMNIPAQUE 350) VIAL IV ONE (10:15)
[2019-02-06] MEDS ORDERED: NS 100 ML (IVPB) BAG IV ONE (10:15)
[2019-02-06] MEDS ORDERED: HOLD METFORMIN - RECEIVED CONTRAST 20 ML VIAL IV SCH (10:15)
--- NOTE | 2019-02-06 10:19 | NUR ---
Pt back from CT.
--- NOTE | 2019-02-06 10:27 | Diagnostic Imaging Report ---
INDICATION: Head pain FINDINGS: Some bibasilar pulmonary opacity greater right than left which may be atelectasis and scarring but could conceivably reflect some acute infiltrate although felt less likely with background COPD. There is no failure, effusion, or pneumothorax. IMPRESSION: Mild basilar pulmonary opacities likely reflect some partial atelectasis and/or chronic scarring. Infiltrate in the right could not be absolutely excluded. Dictated by: Dictated on workstation # [id number]
--- NOTE | 2019-02-06 10:34 | NUR ---
Bipap settings 18/6 at this time.
[2019-02-06] MEDS ORDERED: LABETALOL HCL 20 MG/4 ML VIAL IV ONE (10:45)
--- NOTE | 2019-02-06 10:47 | NUR ---
SEIZURE ACTIVITY NOTED. BY ANG LOWE NOTIFROMEO ATIVAN 2MG ORDERED IV.
[2019-02-06 10:48] VITALS: BP 153/104
[2019-02-06 10:48] LABS: ABG BASE EXCESS 1.2 MMOL/L (-2.5-2.5); ABG OXYGEN SATURATION 99 % (94-100); ABG PO2 203 MMHG (79-93); ABG TCO2 34.4 MMOL/L (21.0-31.0)
[2019-02-06 10:49] LABS: AMPHETAMINE SCREEN, URINE NEGATIVE (NEGATIVE); BARBITURATE SCREEN URINE NEGATIVE (NEGATIVE); BENZODIAZEPINES SCREEN URINE NEGATIVE (NEGATIVE); CANNABINOID SCREEN, URINE NEGATIVE (NEGATIVE); COCAINE SCREEN URINE NEGATIVE (NEGATIVE); METHADONE STAT NEGATIVE (NEGATIVE); METHAMPHETAMINE SCREEN URINE S NEGATIVE (NEGATIVE); OPIATE SCREEN URINE NEGATIVE (NEGATIVE); OXYCODONE STAT NEGATIVE (NEGATIVE); PROPOXYPHENE STAT NEGATIVE (NEGATIVE); TRICYCLIC ANTIDEPRESSANTS SCRE NEGATIVE (NEGATIVE)
[2019-02-06 10:50] LABS: BILIRUBIN,URINE NEGATIVE (NEGATIVE); GLUCOSE, URINE (UA) 1+ (NEGATIVE); KETONES,URINE NEGATIVE (NEGATIVE); LEUKOCYTE ESTERASE ,URINE NEGATIVE (NEGATIVE); NITRITE,URINE NEGATIVE (NEGATIVE); PH,URINE 7 (5-9); PROTEIN,URINE 4+ (NEGATIVE); UROBILINOGEN,URINE NORMAL (NORMAL)
[2019-02-06 10:51] LABS: BACTERIA,URINE TRACE /HPF; CLARITY,URINE CLEAR; COLOR,URINE YELLOW; SQUAMOUS EPITHELIAL CELL,UR RARE /HPF; WBC,URINE RARE /HPF
[2019-02-06 10:52] LABS: HYALINE CASTS, URINE RARE /LPF
[2019-02-06] MEDS: LORazepam INJ 2 MG/ML (ATIVAN) VIAL ONE ×2 (10:54→11:35)
--- NOTE | 2019-02-06 10:54 | Diagnostic Imaging Report ---
PROCEDURE: CT angiography of the head and CT angiography of the neck with and without contrast. TECHNIQUE: Contiguous noncontrast images were obtained from the skull base through the vertex. After intravenous contrast administration, helical CT angiography of the neck was performed. Source data was reformatted into multiple MIP projections. Delayed post contrast acquisition was also obtained. Auto Exposure Controls were utilized during the CT exam to meet ALARA standards for radiation dose reduction. INDICATION: Unresponsive, altered middle status. COMPARISON: CT head of earlier same day FINDINGS: CTA NECK: Aorta: Aortic arch is normal, with 2 vessel branching pattern. The great vessels are widely patent at their origin. Anterior Circulation: The origin of the bilateral common carotid arteries are patent. No stenosis of the common carotid arteries in the neck. No significant stenosis of the internal carotid arteries per NASCET criteria. The cervical segments of the bilateral ICAs are patent. The proximal external carotid arteries are patent and without significant stenosis. Posterior Circulation: Origins of the bilateral vertebral arteries are normal. Vertebral arteries are co-dominant. The proximal extraousseous, intrasosseous, and distal extraosseous segments of the vertebral arteries are patent without dissection or stenosis. Non-vascular: No cervical lymphadenopathy. The airway is patent. No evidence of mucosal-based mass lesion in the pharynx. Thyroid is normal. Salivary glands are normal. No concerning lesion in the cervical spine. CTA HEAD: Anterior Circulation: The distal internal carotid arteries are patent. The bilateral M1 and M2 segments of the middle cerebral arteries are patent and without stenosis. The bilateral M3 and M4 segments are symmetric in size and number. The anterior cerebral arteries are patent and without stenosis. Anterior communicating artery is patent. No saccular aneurysm in the anterior circulation. Posterior Circulation: The bilateral intracranial segments of the vertebral arteries are patent. The basilar artery is patent and without stenosis. The posterior cerebral arteries are patent. Bilateral posterior communicating arteries are hypoplastic. No saccular aneurysm in the posterior circulation. Post Contrast Head: No pathologic enhancement on delayed post-contrast enhancement. IMPRESSION: 1. No intra-cranial major arterial occlusion, significant stenosis or aneurysm. Specifically, the basilar artery is widely patent 2. No arterial occlusion or stenosis in the major neck arteries. Dictated by: Dictated on workstation # [id number]
[2019-02-06 10:55] LABS: ABG PH 7.08 (7.37-7.43)
--- NOTE | 2019-02-06 10:55 | NUR ---
Pastoral care in room with family.
[2019-02-06 10:56] LABS: ABG PCO2 108 MMHG (35-45); ALLENS TEST YES-POS; INSPIRED O2 60%; PATIENT TEMP 96.8; VENTILATOR NO
[2019-02-06] MEDS ORDERED: LORazepam INJ 2 MG/ML (ATIVAN) VIAL IVP ONE ×2 (11:00)
[2019-02-06] MEDS ORDERED: NS IV 1000 ML 1,000 ML IV ONE (11:19)
[2019-02-06] MEDS ORDERED: SODIUM BICARB 8.4% 50 MEQ/50 ML VIAL IV ONE ×2 (11:30)
--- NOTE | 2019-02-06 12:29 | NUR ---
Due to pt condition, pt fail dysphagia screen.
--- NOTE | 2019-02-06 13:06 | NUR ---
CT called to cloud images to [facility]
--- NOTE | 2019-02-06 13:29 | NUR ---
Alfredoe in room to intubate pt at this time.
[2019-02-06 13:50] VITALS: BP 139/86
--- NOTE | 2019-02-06 13:58 | NUR ---
[facility] notified of pt's departure and intubation.
[2019-02-19] MEDS ORDERED: NF-NACL1GT PO (15:00)
[2019-02-19] MEDS ORDERED: ACET160E50 PO (15:00)
[2019-02-19] MEDS ORDERED: SENOKOT S PO (15:00)
[2019-02-19] MEDS ORDERED: ALB0.5V NEB (15:00)
[2019-02-19] MEDS ORDERED: LEVE100S16 PO (15:00)
[2019-02-19] MEDS ORDERED: IPRA0.2S51 NEB (15:00)
[2019-02-19] MEDS ORDERED: NYST1000 PO (15:00)
[2019-02-19] MEDS ORDERED: METO-333 PO (15:00)
[2019-02-19] MEDS ORDERED: APIX5TAB PO (15:00)
[2019-02-19] MEDS ORDERED: ASPI-999 PO (15:00)
[2019-02-20] MEDS ORDERED: HYDR25TA4 PO (08:33)
[2019-02-20] MEDS ORDERED: LOSA50TA63 PO (08:33)
[2019-03-01] MEDS ORDERED: APIX5TAB PO (21:15)
[2019-03-01] MEDS ORDERED: METO-333 PO (21:15)
[2019-03-01] MEDS ORDERED: LEVE10006 PO (21:15)
[2019-03-01] MEDS ORDERED: DONE5TAB8 PO (21:15)
[2019-03-01] MEDS ORDERED: ASPI-999 PO (21:15)
[2019-03-01] MEDS ORDERED: AC160U10 PO (21:15)
== END 2019-02-06 13:50 | disposition short-term general hospital (02) ==
LOC: EDUNIT# 09:10 → ER 09:13
DX: G93.40 Encephalopathy, unspecified (principal); E87.2 Acidosis; J96.02 Acute respiratory failure with hypercapnia; J96.01 Acute respiratory failure with hypoxia; I10 Essential (primary) hypertension; R56.9 Unspecified convulsions; R41.82 Altered mental status, unspecified; J44.9 Chronic obstructive pulmonary disease, unspecified; Z79.82 Long term (current) use of aspirin; Z96.642 Presence of left artificial hip joint
CPT/HCPCS: 36415; 36600; 51702; 70450; 70496; 70498; 71045; 80053; 80306; 80320; 80329; 81000; 82805; 82962; 83735; 83880; 84443; 84484; 85025; 85379; 85610; 85730; 87088; 93005; 93041; 96365; 96375; 96376; 99291

== ENCOUNTER 2019-02-19 15:36 | Inpatient (IN) | payer MEDICARE, MEDICAID | END 2019-03-02 10:30 | disposition other institution (70) ==

== ENCOUNTER 2021-03-29 14:46 | Emergency (ER) | payer MEDICARE, MEDICAID ==
[~2021-03-29] VITALS: Ht 157 cm; Wt 54.4 kg
[~2021-03-29 14:46] MED LIST changes: +AC160U10 PO; +ACET160E28 PO; +ALB0.5V NEB; +APIX5TAB PO; +ASPI-999 PO; +DONE5TAB8 PO; +IPRA0.2S51 NEB; +LEVE10006 PO; +LEVE100S16 PO; +LOSA50TA63; +LOSA50TA63 PO; +METO-333 PO; -METO-387 PO; +MTP25TSR PO; +NF-NACL1GT PO; +NYST1000 PO; +SENOKOT S PO
--- NOTE | 2021-03-29 15:09 | ED General ---
General Chief Complaint: Altered Mental Status Stated Complaint: UTI Nursing Triage Note: PT ARRIVES TO ER BY [facility] FROM [facility] WITH C/O ALTERED MENTAL STATUS AND DECREASED LOC ACCORDING TO THE NURSE FROM [facility]. REPORT FROM EMS STATES SHE WAS 77% ON RA ON TRUCK. AT THIS TIME PATIENT HAS NO COMPLAINTS Source of Information: Patient Exam Limitations: No Limitations History of Present Illness Date Seen by Provider: Mar 29, 2021 Time Seen by Provider: 15:07 Initial Comments To ER by [facility] from [facility] with reports of altered mental status. She seems more lethargic today they state. She is currently on day 4 of antibiotic treatment for urinary tract infection. She has an order for [facility] at the jail to keep saturation above 90%. Timing/Duration: 1-2 Days Severity: Moderate Allergies and Home Medications Allergies Coded Allergies: No Known Drug Allergies (Unverified , 07/21/15) Home Medications Acetaminophen 325 Mg/10.15 Ml Soln, 325 MG PO Q6H PRN for PAIN-MILD Prescribed by: FRANCIE SEBASTIAN on 03/01/192114 Apixaban 5 Mg Tablet, 5 MG PO BID Prescribed by: FRANCIE SEBASTIAN on 03/01/192114 Aspirin 81 Mg Tab.chew, 81 MG PO DAILY Prescribed by: FRANCIE SEBASTIAN on 03/01/192114 Donepezil HCl 5 Mg Tablet, 5 MG PO HS Prescribed by: FRANCIE SEBASTIAN on 03/01/192114 Levetiracetam 1,000 Mg Tablet, 1,000 MG PO BID Prescribed by: FRANCIE SEBASTIAN on 03/01/192114 Metoprolol Tartrate 25 Mg Tablet, 25 MG PO BID Prescribed by: FRANCIE SEBASTIAN on 03/01/192114 Patient Home Medication List Home Medication List Reviewed: Yes Review of Systems Review of Systems Constitutional: see HPI, other (Patient states she feels okay has no pain or complaints) EENTM: see HPI Respiratory: no symptoms reported Cardiovascular: no symptoms reported Genitourinary: no symptoms reported Musculoskeletal: no symptoms reported Skin: no symptoms reported Psychiatric/Neurological: No Symptoms Reported Hematologic/Lymphatic: No Symptoms Reported Past Ieklcnm-Fztpel-Fwlitd Hx Seasonal Allergies Seasonal Allergies: No Past Medical History Surgeries: Yes (left hip replacement/cataracts) Eye Surgery, Orthopedic Respiratory: Yes Pulmonary Embolism, COPD Currently Using CPAP: No Currently Using BIPAP: No Cardiac: Yes Atrial Fibrillation, Hypertension Neurological: No Seizure Disorder Genitourinary: Yes (INCONTINENCY) Gastrointestinal: No Musculoskeletal: No Arthritis Endocrine: No HEENT: Yes Cataract Hearing Impairment: Hard of Hearing Cancer: No Psychosocial: No Integumentary: No Blood Disorders: No Adverse Reaction/Blood Tranf: No Family Medical History Dementia 19 MOTHER FH: breast cancer G8 SISTER FH: leukemia 19 FATHER FH: uterine cancer G8 SISTER Physical Exam Vital Signs Vital Signs - First Documented 03/29/21 03/29/21 14:50 15:04 Temp 36.7 Pulse 70 Resp 18 B/P (MAP) 133/97 (109) Pulse Ox 93 O2 Delivery Room Air O2 Flow Rate 4.00 Capillary Refill : Less Than 3 Seconds Height, Weight, BMI Height: 5'3.00" Weight: 139lbs. 9.6oz. 63.745993sj; 22.00 BMI Method:Estimated General Appearance: No Apparent Distress, WD/WN, Chronically ill, Thin Eyes: Bilateral Eye Normal Inspection, Bilateral Eye PERRL, Bilateral Eye EOMI HEENT: PERRL/EOMI, TMs Normal Neck: Full Range of Motion, Normal Inspection Respiratory: No Accessory Muscle Use, No Respiratory Distress Cardiovascular: Regular Rate, Rhythm, Normal Peripheral Pulses, Other (Normal sinus rhythm with a rate of 68 blood pressure 133/87. Oxygen saturation was 88% on room air, 2 L increased her to 93%.) Gastrointestinal: Normal Bowel Sounds, Non Tender, Soft Extremity: Normal Capillary Refill, Normal Inspection Neurologic/Psychiatric: Alert, Other (somnolent, flat affect) Skin: Normal Color, Warm/Dry Focused Exam Lactate Level 03/29/21 15:14: Lactic Acid Level 0.98 Lactic Acid Level Laboratory Tests Test 03/29/21 15:14 Lactic Acid Level 0.98 MMOL/L (0.50-2.00) Progress/Results/Core Measures Suspected Sepsis SIRS Temperature: Pulse: 70 Respiratory Rate: 18 Laboratory Tests 03/29/21 14:50: White Blood Count 5.9 Blood Pressure 133 /97 Mean: 109 03/29/21 15:14: Lactic Acid Level 0.98 Laboratory Tests 03/29/21 14:50: Creatinine 0.78, INR Comment 1.1, Platelet Count 258, Total Bilirubin 0.3 Results/Orders Lab Results Laboratory Tests Test 03/29/21 14:50 03/29/21 15:14 03/29/21 17:01 03/29/21 17:12 Range/Units White Blood Count 5.9 4.3-11.0 10^3/uL Red Blood Count 4.09 3.80-5.11 10^6/uL Hemoglobin 11.8 11.5-16.0 g/dL Hematocrit 39 35-52 % Mean Corpuscular Volume 95 80-99 fL Mean Corpuscular Hemoglobin 29 25-34 pg Mean Corpuscular Hemoglobin Concent 31 L 32-36 g/dL Red Cell Distribution Width 13.6 10.0-14.5 % Platelet Count 258 130-400 10^3/uL Mean Platelet Volume 10.4 9.0-12.2 fL Immature Granulocyte % (Auto) 1 % Neutrophils (%) (Auto) 70 42-75 % Lymphocytes (%) (Auto) 16 12-44 % Monocytes (%) (Auto) 12 0-12 % Eosinophils (%) (Auto) 1 0-10 % Basophils (%) (Auto) 1 0-10 % Neutrophils # (Auto) 4.1 1.8-7.8 X 10^3 Lymphocytes # (Auto) 0.9 L 1.0-4.0 X 10^3 Monocytes # (Auto) 0.7 0.0-1.0 X 10^3 Eosinophils # (Auto) 0.1 0.0-0.3 10^3/uL Basophils # (Auto) 0.0 0.0-0.1 10^3/uL Immature Granulocyte # (Auto) 0.0 0.0-0.1 10^3/uL Prothrombin Time 14.7 12.2-14.7 SEC INR Comment 1.1 0.8-1.4 Activated Partial Thromboplast Time 33 24-35 SEC Sodium Level 142 135-145 MMOL/L Potassium Level 3.9 3.6-5.0 MMOL/L Chloride Level 104 98-107 MMOL/L Carbon Dioxide Level 30 21-32 MMOL/L Anion Gap 8 5-14 MMOL/L Blood Urea Nitrogen 18 7-18 MG/DL Creatinine 0.78 0.60-1.30 MG/DL Estimat Glomerular Filtration Rate 71 BUN/Creatinine Ratio 23 Glucose Level 105 70-105 MG/DL Calcium Level 8.5 8.5-10.1 MG/DL Corrected Calcium 9.0 8.5-10.1 MG/DL Total Bilirubin 0.3 0.1-1.0 MG/DL Aspartate Amino Transf (AST/SGOT) 23 5-34 U/L Alanine Aminotransferase (ALT/SGPT) 13 0-55 U/L Alkaline Phosphatase 61 40-136 U/L B-Type Natriuretic Peptide 61.8 <100.0 PG/ML Total Protein 6.8 6.4-8.2 GM/DL Albumin 3.4 3.2-4.5 GM/DL Valproic Acid (Depakene) Level 79.4 50.0-100.0 UG/ML Lactic Acid Level 0.98 0.50-2.00 MMOL/L SARS-CoV-2 RNA (RT-PCR) Not Detected Not Detecte Urine Color YELLOW Urine Clarity SL CLOUDY Urine pH 6.0 5-9 Urine Specific [place] >=1.030 1.016-1.022 Urine Protein NEGATIVE NEGATIVE Urine Glucose (UA) NEGATIVE NEGATIVE Urine Ketones 1+ H NEGATIVE Urine Nitrite NEGATIVE NEGATIVE Urine Bilirubin 1+ H NEGATIVE Urine Urobilinogen 0.2 < = 1.0 MG/DL Urine Leukocyte Esterase NEGATIVE NEGATIVE Urine RBC (Auto) NEGATIVE NEGATIVE Urine RBC NONE /HPF Urine WBC RARE /HPF Urine Squamous Epithelial Cells 0-2 /HPF Urine Crystals NONE /LPF Urine Bacteria TRACE /HPF Urine Casts PRESENT /LPF Urine Hyaline Casts 0-2 H /LPF Urine Mucus MODERATE H /LPF Urine Culture Indicated CULTURE PENDING My Orders Orders - OLGA NUÑEZ APRN Cbc With Automated Diff (03/29/21 15:00) Comprehensive Metabolic Panel (03/29/21 15:00) Ua Culture If Indicated (03/29/21 15:00) Ed Iv/Invasive Line Start (03/29/21 15:00) Blood Culture (03/29/21 15:00) Sputum Culture (03/29/21 15:00) Urine Culture (03/29/21 15:00) Protime With Inr (03/29/21 15:00) Partial Thromboplastin Time (03/29/21 15:00) Chest 1 View, Ap/Pa Only (03/29/21 15:00) Vital Signs Adult Sepsis Patie Q15M (03/29/21 15:00) O2 (03/29/21 15:00) Remove Rings In Anticipation O (03/29/21 15:00) Lactic Acid Analyzer (03/29/21 15:00) BNP (03/29/21 15:06) Valproic Acid (03/29/21 15:06) Ct Head/Cervical Spine Wo (03/29/21 15:11) Pelvis (03/29/21 15:11) Covid 19 Inhouse Test (03/29/21 16:27) Ct Pelvis Wo (03/29/21 16:29) Vital Signs/I&O 03/29/21 03/29/21 03/29/21 14:50 15:04 15:37 Temp 36.7 36.6 Pulse 70 64 Resp 18 18 B/P (MAP) 133/97 (109) 133/98 (110) Pulse Ox 93 94 99 O2 Delivery Room Air Nasal Cannula Nasal Cannula O2 Flow Rate 4.00 3.00 Capillary Refill : Less Than 3 Seconds Blood Pressure Mean: 109 Progress Note : Progress Note 1806-I have been back in the room the son is at the bedside. I do not find any cause for her lethargy. We made a phone call to his sister, she states that the patient's antipsychotic has been increased about 2 weeks ago just prior to the onset of this sedation. Typically she would call her children many times a day and was a high elopement risk from the jail as she kept trying to escape. This led to the increase in the Risperdal dosage. That dosage is currently 1 mg twice a day. The somnolence has progressed to the point that she required assistance with feeding today. Her urinary tract infection seems to have cleared. Her oxygen saturation is 98% on 2 L her blood pressure 143/85 heart rate is sinus rhythm at 64. Patient is alert but rather flat affect. I will reduce her respite all dosage by half which would be 0.5 mg twice daily. In regards to the CT finding of anterior right acetabular fracture I do see the abnormality on CT but the patient has absolutely no pain in this location and full active and passive range of motion of the hip including internal and external rotation and flexion. This more likely represents an arthritic change than fracture. In regards to the chest x-ray findings her lungs are clear without leukocytosis fevers or cough and I do not feel that a bacterial pneumonia is likely. Will discharge back to the jail. I will write a paper order for this and to have the jail let Tess Cespedes know about the dosage reduction and ask for any further medication recommendations. Diagnostic Imaging Diagonstic Imaging: CT Comments NAME: MARIA VICTORIA [facility] REC#: [id number] PT STATUS: REG ER : 1940 PHYSICIAN: OLGA NUÑEZ DISPENSER OPERATOR ADMIT DATE: 03/29/21/ER Signed Date of Exam:03/29/21 CT PELVIS WO PROCEDURE: CT pelvis without contrast. TECHNIQUE: Multiple contiguous axial images were obtained through the pelvis without the use of intravenous contrast. Sagittal and coronal reformations were performed. Auto Exposure Controls were utilized during the CT exam to meet ALARA standards for radiation dose reduction. INDICATION: Concern for fracture in the right hip. Abnormality seen on right hip radiograph. COMPARISON: Pelvic radiograph performed earlier the same date. FINDINGS: A small nondisplaced fracture is seen involving the anterior aspect of the right acetabulum in the area of previously visualized abnormality. No unstable fracture is identified in the right hip. The included right femur has a normal appearance without acute fracture or dislocation. Moderate degenerative changes are seen in the right femoroacetabular joint with joint space narrowing, marginal osteophyte formation and subchondral sclerosis and cyst formation. The bilateral SI joints demonstrate normal alignment. The pubic symphysis is intact. Prior left total hip arthroplasty changes are noted. No evidence of periprosthetic fracture. No aggressive osseous lesion is identified. The included soft tissues of the pelvis demonstrate no acute abnormality. Diverticulosis of the sigmoid colon is seen without evidence of acute diverticulitis. IMPRESSION: 1. Nondisplaced fracture involving the anterior aspect of the right acetabulum. No fracture is seen involving the included right femur. No unstable fracture is identified in the pelvis or hips. Recommend follow-up as indicated. 2. 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 Prior left total hip arthroplasty changes are noted. 3. Diverticulosis of the sigmoid colon without evidence of acute diverticulitis. Dictated by: Dictated on workstation # [id number] Dict: 03/29/21 1654 Trans: 03/29/21 1720 [facility] [id number] Interpreted by: AKASH GAUTAM DO Electronically signed by: DAINAKASH Miranda GUAJARDO 03/29/21 1720 Departure Communication (Admissions) NAME: MARIA VICTORIA [facility] REC#: [id number] PT STATUS: REG ER : 1940 PHYSICIAN: OLGA NUÑEZ APRN ADMIT DATE: 03/29/21/ER Draft Date of Exam:03/29/21 PELVIS CLINICAL INDICATION: Patient is status post fall this morning. EXAM: X-ray of the pelvis, AP view. COMPARISON: None. FINDINGS AND IMPRESSION: 1: There is a curvilinear lucency involving the right acetabular region and a fracture should be excluded. CT scan would better evaluate. 2: Left total hip arthroplasty is seen which is incompletely imaged distally. There is no fracture or dislocation, as visualized. 3: There is no other significant abnormality seen. Dictated on workstation # [id number] Dict: 03/29/21 1620 Trans: 03/29/21 1625 [facility] [id number] Interpreted by: MAICOL CABRERA MD Electronically signed by: Impression Primary Impression: Medication side effect Disposition: 01 HOME, SELF-CARE Condition: Stable Departure-Patient Inst. Decision time for Depature: 18:09 Referrals: NO,LOCAL PHYSICIAN (PCP/Family) Primary Care Physician Patient Instructions: Adverse Drug Reactions, Adult Add. Discharge Instructions: 1. It seems that the cause of her somnolence is most likely the higher Risperdal dosage. As such let us reduce this to 0.5 mg by mouth twice a day. Return to ER for any concerns. All discharge instructions reviewed with patient and/or family. Voiced understanding. Copy Copies To 1: YONAS RUTHERFORD MD, PETER J APRN Mar 29, 2021 15:09
[2021-03-29 15:11] LABS: BASOPHILS % (AUTO) 1 % (0-10); EOSINOPHILS # (AUTO) 0.1 10^3/uL (0.0-0.3); EOSINOPHILS % (AUTO) 1 % (0-10); HEMATOCRIT 39 % (35-52); HEMOGLOBIN 11.8 g/dL (11.5-16.0); LYMPHOCYTES # (AUTO) 0.9 X 10^3 (1.0-4.0); LYMPHOCYTES % (AUTO) 16 % (12-44); MEAN CORPUSCULAR HEMOGLOBIN 29 pg (25-34); MEAN CORPUSCULAR HGB CONC 31 g/dL (32-36); MEAN CORPUSCULAR VOLUME 95 fL (80-99); MEAN PLATELET VOLUME 10.4 fL (9.0-12.2); MONOCYTES # (AUTO) 0.7 X 10^3 (0.0-1.0); MONOCYTES % (AUTO) 12 % (0-12); NEUTROPHILS # (AUTO) 4.1 X 10^3 (1.8-7.8); NEUTROPHILS % (AUTO) 70 % (42-75); PLATELET COUNT 258 10^3/uL (130-400); WHITE BLOOD COUNT 5.9 10^3/uL (4.3-11.0)
[2021-03-29 15:15] LABS: ALBUMIN 3.4 GM/DL (3.2-4.5); INR 1.1 (0.8-1.4); POTASSIUM 3.9 MMOL/L (3.6-5.0); PROTHROMBIN TIME PATIENT 14.7 SEC (12.2-14.7)
[2021-03-29 15:16] LABS: CALCIUM 8.5 MG/DL (8.5-10.1)
[2021-03-29 15:17] LABS: TOTAL PROTEIN 6.8 GM/DL (6.4-8.2)
[2021-03-29 15:19] LABS: BILIRUBIN,TOTAL 0.3 MG/DL (0.1-1.0)
[2021-03-29 15:21] LABS: CREATININE SERUM 0.78 MG/DL (0.60-1.30)
--- NOTE | 2021-03-29 16:18 | Diagnostic Imaging Report ---
PROCEDURE: CT head and CT cervical spine without contrast. TECHNIQUE: Multiple contiguous axial images were obtained through the brain and cervical spine without the use of intravenous contrast. Sagittal and coronal reformations through the cervical spine were then performed. Auto Exposure Controls were utilized during the CT exam to meet ALARA standards for radiation dose reduction. INDICATION: Fall, altered mental status with injury. COMPARISON: CT head from 02/06/2019. FINDINGS: Head: No intracranial hyperdense hemorrhage or space-occupying mass. No hydrocephalus or midline shift. Global atrophy is present. Periventricular white matter hypoattenuation is most compatible with chronic microvascular ischemic disease. No acute fracture. Paranasal sinuses and mastoid air cells are clear. Cervical spine: No acute fracture or traumatic malalignment. Degenerative straightening of cervical spine is present. Multilevel degenerative disc disease is greatest at C6-C7. Severe facet osteoarthritis is present at multiple levels throughout the cervical spine. Lung apices are clear. No cervical lymphadenopathy. No retropharyngeal fluid collection. Lung apices show a few scattered sites of groundglass attenuation in the left upper lobe. IMPRESSION: 1. No acute intracranial hemorrhage or skull fracture. 2. No acute fracture or traumatic malalignment in the cervical spine. 3. There are a few scattered groundglass opacities in the left upper lobe which could be due to infection in the appropriate setting. Dictated by: Dictated on workstation # [id number]
--- NOTE | 2021-03-29 16:22 | Diagnostic Imaging Report ---
Clinical indication: Patient with sepsis. Exam: Portable chest x-ray upright view. Comparisons: Chest x-ray dated 02/06/2019. Findings: There is interval slight improved aeration of the right lung base. There is development of mild atelectasis versus infiltrate involving the right perihilar region. There is increased patchy airspace opacities and consolidation involving the left lung base. There is no pleural effusion or pneumothorax. There is mild airspace opacity involving the right upper lobe. There is cardiomegaly with no significant pulmonary vascular congestion. Bones show no significant abnormality. Impression: 1: There is concern for left lung base infiltrate. 2: There is interval development of right perihilar atelectasis versus infiltrate. 3: There is cardiomegaly with no significant pulmonary vascular congestion. Dictated by: Dictated on workstation # [id number]
--- NOTE | 2021-03-29 16:25 | Diagnostic Imaging Report ---
CLINICAL INDICATION: Patient is status post fall this morning. EXAM: X-ray of the pelvis, AP view. COMPARISON: None. FINDINGS AND IMPRESSION: 1: There is a curvilinear lucency involving the right acetabular region and a fracture should be excluded. CT scan would better evaluate. 2: Left total hip arthroplasty is seen which is incompletely imaged distally. There is no fracture or dislocation, as visualized. 3: There is no other significant abnormality seen. Dictated by: Dictated on workstation # [id number]
--- NOTE | 2021-03-29 17:12 | Diagnostic Imaging Report ---
PROCEDURE: CT pelvis without contrast. TECHNIQUE: Multiple contiguous axial images were obtained through the pelvis without the use of intravenous contrast. Sagittal and coronal reformations were performed. Auto Exposure Controls were utilized during the CT exam to meet ALARA standards for radiation dose reduction. INDICATION: Concern for fracture in the right hip. Abnormality seen on right hip radiograph. COMPARISON: Pelvic radiograph performed earlier the same date. FINDINGS: A small nondisplaced fracture is seen involving the anterior aspect of the right acetabulum in the area of previously visualized abnormality. No unstable fracture is identified in the right hip. The included right femur has a normal appearance without acute fracture or dislocation. Moderate degenerative changes are seen in the right femoroacetabular joint with joint space narrowing, marginal osteophyte formation and subchondral sclerosis and cyst formation. The bilateral SI joints demonstrate normal alignment. The pubic symphysis is intact. Prior left total hip arthroplasty changes are noted. No evidence of periprosthetic fracture. No aggressive osseous lesion is identified. The included soft tissues of the pelvis demonstrate no acute abnormality. Diverticulosis of the sigmoid colon is seen without evidence of acute diverticulitis. IMPRESSION: 1. Nondisplaced fracture involving the anterior aspect of the right acetabulum. No fracture is seen involving the included right femur. No unstable fracture is identified in the pelvis or hips. Recommend follow-up as indicated. 2. 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 Prior left total hip arthroplasty changes are noted. 3. Diverticulosis of the sigmoid colon without evidence of acute diverticulitis. Dictated by: Dictated on workstation # [id number]
[2021-03-29 17:24] LABS: CLARITY,URINE SL CLOUDY; COLOR,URINE YELLOW; GLUCOSE, URINE (UA) NEGATIVE (NEGATIVE); KETONES,URINE 1+ (NEGATIVE); LEUKOCYTE ESTERASE ,URINE NEGATIVE (NEGATIVE); NITRITE,URINE NEGATIVE (NEGATIVE); PROTEIN,URINE NEGATIVE (NEGATIVE)
[2021-03-29 17:43] LABS: BACTERIA,URINE TRACE /HPF; BILIRUBIN,URINE 1+ (NEGATIVE); HYALINE CASTS, URINE 0-2 /LPF; SQUAMOUS EPITHELIAL CELL,UR 0-2 /HPF; WBC,URINE RARE /HPF
[2021-03-29 19:10] VITALS: BP 113/81
== END 2021-03-29 19:10 | disposition home or self-care (01) ==
LOC: EDUNIT# 14:46 → ER 14:47
DX: R41.82 Altered mental status, unspecified (principal); T36.95XA Adverse effect of unspecified systemic antibiotic, initial encounter; J44.9 Chronic obstructive pulmonary disease, unspecified; I10 Essential (primary) hypertension; Z86.711 Personal history of pulmonary embolism; G40.909 Epilepsy, unspecified, not intractable, without status epilepticus; I48.91 Unspecified atrial fibrillation; Z20.822 Contact with and (suspected) exposure to COVID-19; Z79.01 Long term (current) use of anticoagulants; Z79.82 Long term (current) use of aspirin; Z79.899 Other long term (current) drug therapy
CPT/HCPCS: 36415; 70450; 71045; 72125; 72170; 72192; 80053; 80164; 81000; 83605; 83880; 85025; 85610; 85730; 87040; 87077; 87088; 87186; 87636

== ENCOUNTER 2021-12-18 08:10 | Emergency (ER) | payer MEDICARE, MEDICAID ==
[~2021-12-18] VITALS: Ht 165.1 cm; Wt 45.4 kg
--- NOTE | 2021-12-18 08:26 | ED Fall/Injury ---
General Stated Complaint: FALL Source: EMS, shelter records, old records (ALL PMH IS FROM [facility] AND [facility]) Exam Limitations: other (PT WITH DEMENTIA, UNABLE TO PROVIDE ANY INFORMATION; PT YELLS "OW' WITH ANY MOVEMENT OR SLIGHTEST TOUCH--LITERALLY TO ANY PART OF BODY, TAKING VITALS, ETC) History of Present Illness Date Seen by Provider: December 18, 2021 Time Seen by Provider: 08:13 Initial Comments PT ARRIVES VIA EMS FROM VIA [facility] NO REPORT/CALL FROM [facility] PER EMS: PT HAD AN UNWITNESSED FALL LAST NIGHT, WAS FOUND ON THE FLOOR IN HER ROOM ABOUT 2200 PM--NO APPARENT INJURIES AT THAT TIME. IS UNKNOWN HOW LONG SHE HAD BEEN ON THE FLOOR THAT TIME. PT WAS FOUND ON THE FLOOR IN HER ROOM AGAIN THIS MORNING AROUND 0720--FACE DOWN PER EMS, PT WAS LAST SEEN AT 2200 LAST NIGHT, PRIOR TO FINDING HER ON THE FLOOR AGAIN THIS AM PT WITH SEVERE DEMENTIA AND IS ON HOSPICE, AND IS DNR/DNI PT AT NORMAL BASELINE MENTATION, PER EMS PT IS CURRENTLY DISORIENTED TO PLACE, TIME, SITUATION. ONLY KNOWS NAME. KEEPS YELLING FOR LEANDRO PT IS TALKING AND SPEECH IS CLEAR, BUT IS UNABLE TO STATE IF SHE HURTS ANYWHERE. PER EMS, PT HAD C/O PAIN TO LEFT HIP AND LEG--HAS HAD PRIOR LEFT HIP REPLACEMENT, PER OLD RECORDS PT ALSO HAS A LARGE HEMATOMA TO LEFT BROW, AND DRIED BLOOD FROM NOSE. PT IS ON ASPIRIN, NO OTHER BLOOD THINNERS IN ADDITION TO SEVERE DEMENTIA, PT HAS HISTORY OF SEIZURES, ATRIAL FIBRILLATION, PULMONARY EMBOLI, COPD--O2 DEPENDENT AT 2L/NC CONTINUOUSLY, AND GENERALIZED WEAKNESS, AND IS POST-POLIO. PCP: DR. RUTHERFORD Allergies and Home Medications Allergies Coded Allergies: No Known Drug Allergies (Unverified , 07/21/15) Patient Home Medication List Home Medication List Reviewed: Yes Acetaminophen (Acetaminophen) 325 Mg/10.15 Ml Soln, 325 MG PO Q6H PRN for PAIN- MILD Prescribed by: FRANCIE SEBASTIAN on 03/01/192114 Apixaban (Eliquis) 5 Mg Tablet, 5 MG PO BID Prescribed by: FRANCIE SEBASTIAN on 03/01/192114 Aspirin (Aspirin) 81 Mg Tab.chew, 81 MG PO DAILY Prescribed by: FRANCIE SEBASTIAN on 03/01/192114 Donepezil HCl (Aricept) 5 Mg Tablet, 5 MG PO HS Prescribed by: FRANCIE SEBASTIAN on 03/01/192114 Levetiracetam (Levetiracetam) 1,000 Mg Tablet, 1,000 MG PO BID Prescribed by: FRANCIE SEBASTIAN on 03/01/192114 Metoprolol Tartrate (Metoprolol Tartrate) 25 Mg Tablet, 25 MG PO BID Prescribed by: FRANCIE SEBASTIAN on 03/01/192114 Review of Systems Review of Systems Constitutional: other (PT UNABLE TO PROVIDE ANY RELEVANT INFORMATION DUE TO SEVERE DEMENTIA) Musculoskeletal: see HPI Skin: see HPI Psychiatric/Neurological: See HPI Past Vxrbycc-Tswdmx-Lgbryb Hx Seasonal Allergies Seasonal Allergies: No Past Medical History Surgeries: Yes (left hip replacement/cataracts) Eye Surgery, Joint Replacement, Orthopedic Respiratory: Yes (O2 DEPENDENT AT 2L/NC CONTINOUSLY) Pulmonary Embolism, COPD Currently Using CPAP: No Currently Using BIPAP: No Cardiac: Yes Atrial Fibrillation, Hypertension Neurological: Yes (SEVERE DEMENTIA) Dementia, Seizure 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 Genitourinary: Yes (INCONTINENCY) Gastrointestinal: No Musculoskeletal: Yes (LEFT HIP REPLACEMENT) Arthritis Endocrine: No HEENT: Yes Cataract Hearing Impairment: Hard of Hearing Cancer: No Psychosocial: Yes (DEMENTIA) Depression Integumentary: No Blood Disorders: No Adverse Reaction/Blood Tranf: No Family Medical History Dementia 19 MOTHER FH: breast cancer G8 SISTER FH: leukemia 19 FATHER FH: uterine cancer G8 SISTER ADDITIONAL PMH: -01/2019--PT HAD BEEN LIVING AT HOME WITH EX-, WITH INDEPENDENT ADL'S AND ARRIVED IN ER WITH ALTERED MENTAL STAUS, WITH STROKE LIKE PRESENTATION THEN DEVELOPED STATUS EPILEPTICUS, WITH RESPIRATORY FAILURE REQUIRING INTUBATION AND VENTILATOR PLACEMENT, ALSO HAD MULTIPLE BILATERAL P.E.'S, HAD HYPERAMMONEMIA AND ENCEPHALOPATHY WITH RESULTANT PERSISTENT CONFUSION, WAS SEVERELY ACIDOTIC, WITH ELEVATED CO2 LEVELS. PT WAS TRANSFERRED TO , THEN TRANSFERRED BACK HERE TO REHAB UNIT. PT HAS BEEN IN [facility] SINCE THEN. Physical Exam Vital Signs Vital Signs - First Documented Capillary Refill : Height, Weight, BMI Height: 5'3.00" Weight: 139lbs. 9.6oz. [id number]; 22.00 BMI Method:Estimated General Appearance: WD/WN, no apparent distress, thin HEENT: PERRL/EOMI, other (LARGE HEMATOMA TO LEFT BROW, WITH SMALL SUPERFICIAL LACERATION THAT HAS ONE STERI STRIP IN PLACE. NO ACTIVE BLEEDING FROM THIS AREA. DRIED BLOOD FROM BOTH NARES. NO ACTIVE BLEEDING FROM EITHER NARE. UPPER DENTURES IN PLACE AND INTACT. FEW LOWER TEETH WITH DECAY. NO APPARENT BROKEN TEETH. NO BLOOD IN MOUTH OR POSTERIOR PHARYNX. ) Neck: non-tender Cardiovascular: regular rate, rhythm, no JVD, no murmur Respiratory: chest non-tender, normal breath sounds, no respiratory distress, no accessory muscle use Peripheral Pulses: 2+ Dorsalis Pedis (R), 2+ Left Dors-Pedis (L), 2+ Radial Pulses (R), 2+ Radial Pulses (L) Gastrointestinal: normal bowel sounds, non tender, soft Back: no CVA tenderness, no vertebral tenderness Extremities: no pedal edema, normal capillary refill, other (LIMITED ROM OF ALL EXTREMITIES--YELLS "OW" WITH TOUCHING OR MOVING LITERALLY ANY PART OF HER BODY. NO SHORTENING OR ROTATION OF LEGS. NO DEFORMITY TO ANY EXTREMITY. 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 ), alert, disoriented x 3 (ORIENTED TO SELF ONLY. PT DOES NOT FOLLOW COMMANDS OR ANSWER QUESTIONS APPROPRIATELY, BUT SPEECH IS CLEAR AND NO FOCAL DEFICITS IDENTIFIED AT THIS TIME. SPEECH IS CLEAR, AND PT IS REPORTEDLY AT HER NORMAL BASELINE MENTALLY. ) Skin: normal color, warm/dry, ecchymosis, other (NO OTHER BRUISING NOTED ANYWHERE ELSE ON BODY. PT DOES HAVE A LARGE CLUSTER OF OLD, POST-INFLAMMATORY HYPERPIGMENTATION TO LEFT FLANK--? SITE OF PREVIOUS SHINGLES?) [place] Coma Score Best Eye Response: (4) Open Spontaneously Best Verbal Response: (4) Confused Conversation Best Motor Response: (5) Localizes to Pain (BUT PT WAILS "OW" WITH LITERALLY EVERYTHING --DOES NOT TRULY LOCALIZE PAIN) [place] Total: 13 Progress/Results/Core Measures Results/Orders Lab Results Laboratory Tests Test 12/18/21 06:28 12/18/21 08:25 Range/Units White Blood Count 9.1 4.3-11.0 10^3/uL Red Blood Count 3.91 3.80-5.11 10^6/uL Hemoglobin 11.4 L 11.5-16.0 g/dL Hematocrit 37 35-52 % Mean Corpuscular Volume 93 80-99 fL Mean Corpuscular Hemoglobin 29 25-34 pg Mean Corpuscular Hemoglobin Concent 31 L 32-36 g/dL Red Cell Distribution Width 13.2 10.0-14.5 % Platelet Count 349 130-400 10^3/uL Mean Platelet Volume 10.0 9.0-12.2 fL Immature Granulocyte % (Auto) 0 % Neutrophils (%) (Auto) 77 H 42-75 % Lymphocytes (%) (Auto) 12 12-44 % Monocytes (%) (Auto) 9 0-12 % Eosinophils (%) (Auto) 1 0-10 % Basophils (%) (Auto) 0 0-10 % Neutrophils # (Auto) 7.0 1.8-7.8 10^3/uL Lymphocytes # (Auto) 1.1 1.0-4.0 10^3/uL Monocytes # (Auto) 0.8 0.0-1.0 10^3/uL Eosinophils # (Auto) 0.1 0.0-0.3 10^3/uL Basophils # (Auto) 0.0 0.0-0.1 10^3/uL Immature Granulocyte # (Auto) 0.0 0.0-0.1 10^3/uL Prothrombin Time 13.3 12.2-14.7 SEC INR Comment 1.0 0.8-1.4 Activated Partial Thromboplast Time 30 24-35 SEC Sodium Level 139 135-145 MMOL/L Potassium Level 4.1 3.6-5.0 MMOL/L Chloride Level 102 98-107 MMOL/L Carbon Dioxide Level 24 21-32 MMOL/L Anion Gap 13 5-14 MMOL/L Blood Urea Nitrogen 12 7-18 MG/DL Creatinine 0.73 0.60-1.30 MG/DL Estimat Glomerular Filtration Rate 82 BUN/Creatinine Ratio 16 Glucose Level 97 70-105 MG/DL Calcium Level 8.7 8.5-10.1 MG/DL Corrected Calcium 9.0 8.5-10.1 MG/DL Magnesium Level 1.9 1.6-2.4 MG/DL Total Bilirubin 0.5 0.1-1.0 MG/DL Aspartate Amino Transf (AST/SGOT) 21 5-34 U/L Alanine Aminotransferase (ALT/SGPT) 14 0-55 U/L Alkaline Phosphatase 106 40-136 U/L Total Creatine Kinase 87 29-168 U/L Creatine Kinase MB 1.4 <6.6 NG/ML Myoglobin 100.5 H 10.0-92.0 NG/ML Troponin I < 0.028 <0.028 NG/ML Total Protein 7.2 6.4-8.2 GM/DL Albumin 3.6 3.2-4.5 GM/DL Valproic Acid (Depakene) Level 19.8 L 50.0-100.0 UG/ML Urine Color YELLOW Urine Clarity CLEAR Urine pH 8.0 5-9 Urine Specific [place] 1.015 L 1.016-1.022 Urine Protein NEGATIVE NEGATIVE Urine Glucose (UA) NEGATIVE NEGATIVE Urine Ketones NEGATIVE NEGATIVE Urine Nitrite NEGATIVE NEGATIVE Urine Bilirubin NEGATIVE NEGATIVE Urine Urobilinogen 0.2 < = 1.0 MG/DL Urine Leukocyte Esterase NEGATIVE NEGATIVE Urine RBC (Auto) NEGATIVE NEGATIVE Urine RBC NONE /HPF Urine WBC RARE /HPF Urine Squamous Epithelial Cells 0-2 /HPF Urine Crystals NONE /LPF Urine Bacteria NEGATIVE /HPF Urine Casts NONE /LPF Urine Mucus NEGATIVE /LPF Urine Culture Indicated NO My Orders Orders - VINAYAK GOLD DO Ed Iv/Invasive Line Start (12/18/21 08:19) O2 (12/18/21 08:19) Monitor-Rhythm Ecg Trace Only (12/18/21 08:19) Straight Cath For Spec.-Adult (12/18/21 08:19) Ct Head/Face/Cervical Wo (12/18/21 08:19) Chest 1 View, Ap/Pa Only (12/18/21 08:19) Femur, Left, 2 Views (12/18/21 08:19) Tibia/Fibula, Left, 2 Views (12/18/21 08:19) Pelvis/Carl Hips 5> Views (12/18/21 08:19) Cbc With Automated Diff (12/18/21 08:19) Comprehensive Metabolic Panel (12/18/21 08:19) Creatine Kinase (12/18/21 08:19) Creatine Kinase Mb (12/18/21 08:19) Magnesium (12/18/21 08:19) Protime With Inr (12/18/21 08:19) Partial Thromboplastin Time (12/18/21 08:19) Valproic Acid (12/18/21 08:19) Myoglobin Serum (12/18/21 08:19) Troponin I [place] (12/18/21 08:19) Ua Culture If Indicated (12/18/21 08:48) Fentanyl Inj (Sublimaze Injection) (12/18/21 09:45) Vital Signs/I&O 12/18/21 12/18/21 12/18/21 08:11 08:11 11:30 Temp 36.5 Pulse 98 99 Resp 18 18 B/P (MAP) 154/122 (133) 148/88 Pulse Ox 98 100 O2 Delivery Nasal Cannula Nasal Cannula Nasal Cannula O2 Flow Rate 2.00 2.00 2.00 Progress Progress Note : Progress Note ON RETURN FROM CT, PT NOW C/O HER HEAD HURTING. FENTANYL ORDERED. IV HAS BLOWN. WILL HOLD PO MEDICATIONS UNTIL XRAY REPORTS BACK PT DID NOT COMPLAIN OF PAIN FOR REMAINDER OF ER STAY, SO PAIN MEDICATION HELD. MARKED DELAY IN OBTAINING XRAY REPORT DUE TO DICTATION SYSTEM BEING DOWN NO DETERIORATION IN PT'S CONDITION DURING ER STAY PT SLEPT, RESTED QUIETLY FOR MOST OF ER STAY SON LATER ARRIVES AND REPORTS PT IS AT NORMAL BASELINE MENTALLY. MARKED DELAY IN WAITING FOR [facility] STAFF TO TRANSPORT PT BACK TO FACILITY. Diagnostic Imaging Comments CXR--PER RADIOLOGIST VIA PHONE AT [address] HEAD/MAXILLOFACIALS/CERVICAL SPINE--PER RADIOLOGIST VIA PHONE AT 0924 SOFT TISSUE HEMATOMA LEFT BROW, NO OTHER ACUTE PROCESS XRAYS--PER RADIOLOGIST REPORTS AT 1038 PELVIS/BILATERAL HIPS-- There is generalized demineralization. There are postoperative changes of left hip arthroplasty. Prosthetic elements are in good position. Right hip demonstrates some degenerative changes but no definite fracture is seen. Rami appear intact. IMPRESSION: Postsurgical and chronic changes. No acute fracture is detected. LEFT FEMUR-- FINDINGS: 4 views of the femur demonstrate a total hip arthroplasty which appears intact. There are no dislocations. No evidence for loosening. More distal femur is intact with no fractures identified. Knee joint unremarkable as visualized. IMPRESSION: 1. Postoperative findings left hip unremarkable in appearance with no acute fracture identified. LEFT TIB-FIB-- Tibia and fibula appear intact. No fracture seen. Alignment at the knee and ankle appears normal. IMPRESSION: No acute bony abnormality is detected. Reviewed: Reviewed by Me Departure Impression Primary Impression: Unwitnessed fall Additional Impressions: MINOR HEAD INJURY WITH UNKNOWN LOSS OF CONSCIOUSNESS Periorbital hematoma of left eye LEFT LEG AND HIP CONTUSION Dementia History of seizures Disposition: 03 XFER SNF Condition: Stable Departure-Patient Inst. Decision time for Depature: 10:40 Referrals: YONAS RUTHERFORD MD NO,LOCAL PHYSICIAN (PCP) Primary Care Physician Patient Instructions: [facility] ED, Closed Head Injury (DC), Contusion (DC), Preventing Falls ED, Preventing Falls in the Older Adult Add. Discharge Instructions: ICE TO SORE AREAS AT 20 MINUTE INTERVALS TAKE YOUR PRESCRIBED PAIN MEDICATION NEEDED FOLLOW UP WITH YOUR DR NEEDED RETURN TO ER IF PROBLEMS VINAYAK GOLD DO December 18, 2021 08:26
[2021-12-18 08:55] LABS: ALBUMIN 3.6 GM/DL (3.2-4.5)
[2021-12-18 08:56] LABS: CHLORIDE 102 MMOL/L (98-107); POTASSIUM 4.1 MMOL/L (3.6-5.0); SODIUM 139 MMOL/L (135-145)
[2021-12-18 08:57] LABS: CALCIUM 8.7 MG/DL (8.5-10.1)
[2021-12-18 08:58] LABS: GLUCOSE 97 MG/DL (70-105); TOTAL PROTEIN 7.2 GM/DL (6.4-8.2)
[2021-12-18 08:58] LABS: BILIRUBIN,URINE NEGATIVE (NEGATIVE); CLARITY,URINE CLEAR; COLOR,URINE YELLOW; GLUCOSE, URINE (UA) NEGATIVE (NEGATIVE); KETONES,URINE NEGATIVE (NEGATIVE); LEUKOCYTE ESTERASE ,URINE NEGATIVE (NEGATIVE); NITRITE,URINE NEGATIVE (NEGATIVE); PROTEIN,URINE NEGATIVE (NEGATIVE)
[2021-12-18 08:59] LABS: BASOPHILS % (AUTO) 0 % (0-10); CARBON DIOXIDE 24 MMOL/L (21-32); EOSINOPHILS # (AUTO) 0.1 10^3/uL (0.0-0.3); EOSINOPHILS % (AUTO) 1 % (0-10); HEMATOCRIT 37 % (35-52); HEMOGLOBIN 11.4 g/dL (11.5-16.0); LYMPHOCYTES # (AUTO) 1.1 10^3/uL (1.0-4.0); LYMPHOCYTES % (AUTO) 12 % (12-44); MEAN CORPUSCULAR HEMOGLOBIN 29 pg (25-34); MEAN CORPUSCULAR HGB CONC 31 g/dL (32-36); MEAN CORPUSCULAR VOLUME 93 fL (80-99); MONOCYTES # (AUTO) 0.8 10^3/uL (0.0-1.0); MONOCYTES % (AUTO) 9 % (0-12); NEUTROPHILS % (AUTO) 77 % (42-75); PLATELET COUNT 349 10^3/uL (130-400); WHITE BLOOD COUNT 9.1 10^3/uL (4.3-11.0)
[2021-12-18 09:00] LABS: BILIRUBIN,TOTAL 0.5 MG/DL (0.1-1.0)
[2021-12-18 09:01] LABS: ALKALINE PHOSPHATASE 106 U/L (40-136)
[2021-12-18 09:02] LABS: CREATININE SERUM 0.73 MG/DL (0.60-1.30); GFR ESTIMATED 82
[2021-12-18 09:03] LABS: BUN/CREATININE RATIO 16; PROTHROMBIN TIME PATIENT 13.3 SEC (12.2-14.7)
[2021-12-18 09:04] LABS: ALANINE AMINOTRANSFERASE 14 U/L (0-55); MAGNESIUM 1.9 MG/DL (1.6-2.4)
[2021-12-18 09:05] LABS: CREATINE KINASE 87 U/L (29-168)
[2021-12-18 09:11] LABS: CREATINE KINASE MB 1.4 NG/ML (<6.6)
[2021-12-18 09:12] LABS: VALPROIC ACID 19.8 UG/ML (50.0-100.0)
[2021-12-18 09:17] LABS: BACTERIA,URINE NEGATIVE /HPF; SQUAMOUS EPITHELIAL CELL,UR 0-2 /HPF; WBC,URINE RARE /HPF
[2021-12-18] MEDS ORDERED: fentaNYL INJ 100 MCG/2 ML AMP IVP ONE (09:45)
--- NOTE | 2021-12-18 10:19 | Diagnostic Imaging Report ---
PROCEDURE: CT head, face, and cervical spine without contrast. TECHNIQUE: Multiple contiguous axial images were obtained through the head, neck, and facial bones without the use of intravenous contrast. Sagittal and coronal reformations through the cervical spine and facial bones were also performed. Auto Exposure Controls were utilized during the CT exam to meet ALARA standards for radiation dose reduction. INDICATION: Facial trauma. Head and neck pain. Found down. COMPARISON: CT head and cervical spine without contrast 01/27/2021. FINDINGS: Examinations are limited by motion. CT head and maxillofacial: Hematoma overlying the left frontal convexity. No fractures. Moderate to advanced generalized parenchymal volume loss. No intracranial hemorrhage, mass effect, hydrocephalus or extra-axial fluid collections. Small air-fluid level in the left maxillary sinus. The mastoids are clear. Normal alignment of the temporomandibular joints. CT cervical spine: Normal alignment. Vertebral body heights preserved. No fractures are identified given the limitations. Moderate to advanced degenerative endplate changes are greatest at C6-C7. Visualized paravertebral soft tissues demonstrate no acute findings. Lung apices are clear. IMPRESSION: 1. Scalp hematoma overlying left frontal convexity. No fractures. 2. No acute intracranial or cervical spine CT findings allowing for the motion. Findings reported to Dr. Alonzo at 9:24 AM on 12/18/2021. Dictated by: Dictated on workstation # [id number]
--- NOTE | 2021-12-18 10:19 | Diagnostic Imaging Report ---
Indication: Fall. Time of Exam: 9:04 AM Correlation is made with prior chest from 03/29/2021. Finding: The heart size is normal. The pulmonary vascularity is unremarkable. The lungs are clear. No infiltrate, effusion or pneumothorax is detected. Impression: No acute cardiopulmonary process is detected. Dictated by: Dictated on workstation # [id number]
--- NOTE | 2021-12-18 10:20 | Diagnostic Imaging Report ---
Indication: Left leg pain. Time of Exam: 9:18 AM Tibia and fibula appear intact. No fracture seen. Alignment at the knee and ankle appears normal. IMPRESSION: No acute bony abnormality is detected. Dictated by: Dictated on workstation # [id number]
--- NOTE | 2021-12-18 10:21 | Diagnostic Imaging Report ---
Indication: Pelvic pain. Time of Exam: 9:04 AM AP view the pelvis and multiple views of each hip were obtained. There is generalized demineralization. There are postoperative changes of left hip arthroplasty. Prosthetic elements are in good position. Right hip demonstrates some degenerative changes but no definite fracture is seen. Rami appear intact. IMPRESSION: Postsurgical and chronic changes. No acute fracture is detected. Dictated by: Dictated on workstation # [id number]
--- NOTE | 2021-12-18 10:23 | Diagnostic Imaging Report ---
INDICATION: Leg pain. EXAMINATION: Left femur 12/18/2021 FINDINGS: 4 views of the femur demonstrate a total hip arthroplasty which appears intact. There are no dislocations. No evidence for loosening. More distal femur is intact with no fractures identified. Knee joint unremarkable as visualized. IMPRESSION: 1. Postoperative findings left hip unremarkable in appearance with no acute fracture identified. Dictated by: Dictated on workstation # [id number]
[2021-12-18 11:30] VITALS: BP 148/88
== END 2021-12-18 11:30 ==
LOC: EDUNIT# 08:10 → ER 08:11
DX: S06.0X9A Concussion with loss of consciousness of unspecified duration, initial encounter (principal); S05.12XA Contusion of eyeball and orbital tissues, left eye, initial encounter; S70.02XA Contusion of left hip, initial encounter; S80.12XA Contusion of left lower leg, initial encounter; F03.90 Unspecified dementia, unspecified severity, without behavioral disturbance, psychotic disturbance, mood disturbance, and anxiety; G40.909 Epilepsy, unspecified, not intractable, without status epilepticus; J44.9 Chronic obstructive pulmonary disease, unspecified; I48.91 Unspecified atrial fibrillation; Z96.642 Presence of left artificial hip joint; Z86.711 Personal history of pulmonary embolism; Z99.81 Dependence on supplemental oxygen; Z79.82 Long term (current) use of aspirin; W19.XXXA Unspecified fall, initial encounter
CPT/HCPCS: 36415; 51701; 70450; 70486; 71045; 72125; 73523; 73552; 73590; 80053; 80164; 81000; 82550; 82553; 83735; 83874; 84484; 85025; 85610; 85730; 93041

== ENCOUNTER 2022-02-11 20:58 | Emergency (ER) | payer MEDICARE, MEDICAID ==
[~2022-02-11] VITALS: Ht 157.4 cm; Wt 60.0 kg
--- NOTE | 2022-02-11 21:07 | ED Fall/Injury ---
General Chief Complaint: Trauma-Non Activation Stated Complaint: UPPER EXTREMITY Source: EMS, long term records Exam Limitations: other (PT WITH DEMENTIA AND UNABLE TO GIVE ANY INFORMATION) History of Present Illness Date Seen by Provider: Feb 11, 2022 Time Seen by Provider: 20:55 Initial Comments PT ARRIVES VIA EMS FROM VIA [facility] PT HAD A WITNESSED FALL, FELL FORWARD AND LANDED ON LEFT SHOULDER--JUST PRIOR TO ARRIVAL PT HAS SWELLING, BRUISING AND DEFORMITY TO LEFT SHOULDER DID NOT HIT HEAD OR HAVE LOSS OF CONSCIOUSNESS. PT WITH SEVERE DEMENTIA, GENERALIZED WEAKNESS, FREQUENT FALLS, AND IS POST- POLIO. PT IS ON HOSPICE AND IS DNR/DNI PT IS AT NORMAL BASELINE, PER EMS, AND LATER PER FAMILY PT IS ON ASPIRIN, NO OTHER BLOOD THINNERS PCP: DR. RUTHERFORD Allergies and Home Medications Allergies Coded Allergies: No Known Drug Allergies (Unverified , 07/21/15) Patient Home Medication List Home Medication List Reviewed: Yes Acetaminophen (Acetaminophen) 325 Mg/10.15 Ml Soln, 325 MG PO Q6H PRN for PAIN- MILD Prescribed by: FRNACIE SEBASTIAN on 03/01/192114 Apixaban (Eliquis) 5 Mg Tablet, 5 MG PO BID Prescribed by: FRANCIE SEBASTIAN on 03/01/192114 Aspirin (Aspirin) 81 Mg Tab.chew, 81 MG PO DAILY Prescribed by: FRANCIE SEBASTIAN on 03/01/192114 Donepezil HCl (Aricept) 5 Mg Tablet, 5 MG PO HS Prescribed by: FRANCIE SEBASTIAN on 03/01/192114 Levetiracetam (Levetiracetam) 1,000 Mg Tablet, 1,000 MG PO BID Prescribed by: FRANCIE SEBASTIAN on 03/01/192114 Metoprolol Tartrate (Metoprolol Tartrate) 25 Mg Tablet, 25 MG PO BID Prescribed by: FRANCIE SEBASTIAN on 03/01/192114 Review of Systems Review of Systems Constitutional: no symptoms reported Musculoskeletal: see HPI Past Sroxdmw-Mbgsmr-Jdwsfn Hx Seasonal Allergies Seasonal Allergies: No Past Medical History Surgeries: Yes (LEFT HIP REPLACEMENT; BILATERAL CATARACT SURGERY) Eye Surgery, Joint Replacement, Orthopedic Respiratory: Yes (O2 DEPENDENT AT 2L/NC CONTINOUSLY) Pulmonary Embolism, COPD Currently Using CPAP: No Currently Using BIPAP: No Cardiac: Yes Atrial Fibrillation, Hypertension Neurological: Yes (SEVERE DEMENTIA; POST POLIO) Dementia, 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 Genitourinary: Yes (INCONTINENCE) Gastrointestinal: No Musculoskeletal: Yes (LEFT HIP REPLACEMENT; FALLS; POST-POLIO) Arthritis Endocrine: No HEENT: Yes (S/P BILATERAL CATARACT SURGERY) Cataract Hearing Impairment: Hard of Hearing Cancer: No Psychosocial: Yes (DEMENTIA) Depression Integumentary: No Blood Disorders: No Adverse Reaction/Blood Tranf: No Family Medical History Dementia 19 MOTHER FH: breast cancer G8 SISTER FH: leukemia 19 FATHER FH: uterine cancer G8 SISTER ADDITIONAL PMH: -01/2019--PT HAD BEEN LIVING AT HOME WITH EX-, WITH INDEPENDENT ADL'S AND ARRIVED IN ER WITH ALTERED MENTAL STAUS, WITH STROKE LIKE PRESENTATION THEN DEVELOPED STATUS EPILEPTICUS, WITH RESPIRATORY FAILURE REQUIRING INTUBATION AND VENTILATOR PLACEMENT, ALSO HAD MULTIPLE BILATERAL P.E.'S, HAD HYPERAMMONEMIA AND ENCEPHALOPATHY WITH RESULTANT PERSISTENT CONFUSION, WAS SEVERELY ACIDOTIC, WITH ELEVATED CO2 LEVELS. PT WAS TRANSFERRED TO , THEN TRANSFERRED BACK HERE TO REHAB UNIT. PT HAS BEEN IN SKILLED NURSING SINCE THEN. Physical Exam Vital Signs Vital Signs - First Documented 02/11/22 21:08 Temp 36.7 Pulse 100 Resp 20 B/P (MAP) 137/93 (108) Pulse Ox 94 O2 Delivery Nasal Cannula O2 Flow Rate 2.00 Capillary Refill : Height, Weight, BMI Height: 5'3.00" Weight: 139lbs. 9.6oz. 63.008383uy; 16.00 BMI Method:Estimated General Appearance: no apparent distress, other (VERY HARD OF HEARING) HEENT: PERRL/EOMI, other (NO EXTERNAL EVIDENCE OF TRAUMA TO HEAD. WEARING GLASSES--NO DAMAGE TO GLASSES) Neck: non-tender, full range of motion Cardiovascular: normal peripheral pulses, regular rate, rhythm, no edema Respiratory: chest non-tender, normal breath sounds, no respiratory distress, no accessory muscle use Peripheral Pulses: 1+ Dorsalis Pedis (R), 1+ Left Dors-Pedis (L), 1+ Radial Pulses (R), 1+ Radial Pulses (L) Gastrointestinal: non tender, soft Back: no CVA tenderness, no vertebral tenderness Extremities: normal capillary refill, swelling, other (SWELLING, BRUISING, DEFORMITY, CREPITANCE TO LEFT SHOULDER. WAILS IN PAIN WITH ANY MOVEMENT OF LEFT ARM) Neurologic/Psychiatric: no motor/sensory deficits, alert, normal mood/affect, other (ORIENTED TO SELF AND SON. VERY POOR MEMORY AND CONFUSED TO PLACE, TIME, SITUATION. PT HAS CLEAR SPEECH. PT IS ABLE TO FOLLOW SIMPLE COMMANDS. ) Skin: normal color, warm/dry, ecchymosis, other (POST INFLAMMATORY HYPERPIGMENTATION TO LEFT FLANK) Procedures/Interventions Splinting and Joint Reduction : Pre-Proc Neuro Vasc Exam: normal Post-Proc Neuro Vasc Exam: normal Immobilizers: Medium Shoulder Progress/Results/Core Measures Results/Orders My Orders Orders - VINAYAK GOLD DO Ed Iv/Invasive Line Start (02/11/22 21:00) O2 (02/11/22 21:00) Monitor-Rhythm Ecg Trace Only (02/11/22 21:00) Chest 1 View, Ap/Pa Only (02/11/22 21:00) Shoulder, Left, 3 Views (02/11/22 21:00) Humerus, Left, 2 Views (02/11/22 21:00) Pelvis (02/11/22 21:00) Shoulder Immoblizer (02/11/22 21:40) Fentanyl Inj (Sublimaze Injection) (02/11/22 21:40) Vital Signs/I&O 02/11/22 02/11/22 02/11/22 21:08 21:14 22:06 Temp 36.7 Pulse 100 87 Resp 20 19 B/P (MAP) 137/93 (108) 126/89 Pulse Ox 94 94 97 O2 Delivery Nasal Cannula Nasal Cannula Nasal Cannula O2 Flow Rate 2.00 2.00 2.00 Progress Progress Note : Progress Note SON IS HERE WITH PT AND DAUGHTER IS ON SPEAKER PHONE DURING ER STAY. REVIEWED XRAY REPORTS, AND FOLLOW UP PLAN. ALL QUESTIONS ANSWERED MO DETERIORATION IN PT'S CONDITION DURING ER STAY. 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 There are chronic-appearing increased interstitial markings. There is no pneumothorax or pleural fluid or definite infiltrate. There is no overt bony abnormality of the chest. Impression: Borderline cardiomegaly and chronic interstitial changes. No overt acute abnormality of the chest. Findings are similar compared to 12/18/2021. LEFT SHOULDER-- There is a comminuted displaced fracture of the left humeral neck, there is about 1.4 cm of displacement of the dominant fragments. Glenohumeral joint and AC joint are intact. IMPRESSION: Displaced humeral neck fracture as described above. LEFT HUMERUS-- There is a comminuted fractured of the left humeral neck with about 1.1 cm of displacement of the dominant fragments. There is no dislocation of the glenohumeral joint. AC joint appears intact. Distal and mid humeral shaft are intact. Impression: Comminuted left humeral neck fracture as described above. PELVIS XRAY-- There is generalized osteopenia. There is a left hip prosthesis. 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 There is some irregularity of the right femoral neck but this appears chronic compared to the prior study. IMPRESSION: Generalized osteopenia. Well-aligned left hip prosthesis. Underlying chronic changes with no definite acute finding. Reviewed: Reviewed by Me Departure Impression Primary Impression: Closed fracture of left proximal humerus Additional Impressions: WITNESSED FALL FROM STANDING Severe dementia Disposition: 03 XFER SNF Condition: Stable Departure-Patient Inst. Decision time for Depature: 21:42 Referrals: YONAS RUTHERFORD MD (PCP/Family) Primary Care Physician JOHANNA SHAH MD Patient Instructions: How to Use a Shoulder Sling ED, Upper Arm Fracture ED, Using Cold for Pain Add. Discharge Instructions: WEAR SHOULDER IMMOBILIZER AT ALL TIMES ICE TO AREA AT 20 MINUTE INTERVALS CONTINUE YOUR REGULAR MEDICATIONS PRESCRIBED, INCLUDING PAIN MEDICATIONS FOLLOW UP WITH DR. SHAH NEXT WEEK FOR FURTHER CARE. All discharge instructions reviewed with patient and/or family. Voiced understanding. VINAYAK GOLD DO Feb 11, 2022 21:07
[2022-02-11] MEDS ORDERED: fentaNYL INJ 100 MCG/2 ML AMP IVP STA (21:40)
--- NOTE | 2022-02-11 21:47 | Diagnostic Imaging Report ---
Indication: Fall with chest pain. Frontal chest obtained at 9:30 p.m. Heart is borderline in size. There are chronic-appearing increased interstitial markings. There is no pneumothorax or pleural fluid or definite infiltrate. There is no overt bony abnormality of the chest. Impression: Borderline cardiomegaly and chronic interstitial changes. No overt acute abnormality of the chest. Findings are similar compared to 12/18/2021. Dictated by: Dictated on workstation # [id number]
--- NOTE | 2022-02-11 21:51 | Diagnostic Imaging Report ---
Indication: Left shoulder pain post trauma. AP and lateral views of the left humerus are obtained. There is a comminuted fractured of the left humeral neck with about 1.1 cm of displacement of the dominant fragments. There is no dislocation of the glenohumeral joint. AC joint appears intact. Distal and mid humeral shaft are intact. Impression: Comminuted left humeral neck fracture as described above. Dictated by: Dictated on workstation # [id number]
--- NOTE | 2022-02-11 21:51 | Diagnostic Imaging Report ---
INDICATION: Fall with pelvic pain. AP pelvis obtained at 9:32 p.m. and compared to 12/18/2021. There is generalized osteopenia. There is a left hip prosthesis. 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 There is some irregularity of the right femoral neck but this appears chronic compared to the prior study. IMPRESSION: Generalized osteopenia. Well-aligned left hip prosthesis. Underlying chronic changes with no definite acute finding. Dictated by: Dictated on workstation # [id number]
--- NOTE | 2022-02-11 21:52 | Diagnostic Imaging Report ---
INDICATION: Left shoulder pain AP, oblique, and transscapular views of the left shoulder obtained at 9:36 p.m. There is a comminuted displaced fracture of the left humeral neck, there is about 1.4 cm of displacement of the dominant fragments. Glenohumeral joint and AC joint are intact. IMPRESSION: Displaced humeral neck fracture as described above. Dictated by: Dictated on workstation # [id number]
[2022-02-11 22:06] VITALS: BP 126/89
== END 2022-02-11 22:06 ==
LOC: EDUNIT# 20:58 → ER 20:59
DX: S42.292A Other displaced fracture of upper end of left humerus, initial encounter for closed fracture (principal); F03.90 Unspecified dementia, unspecified severity, without behavioral disturbance, psychotic disturbance, mood disturbance, and anxiety; R29.6 Repeated falls; J44.9 Chronic obstructive pulmonary disease, unspecified; Z99.81 Dependence on supplemental oxygen; Z79.82 Long term (current) use of aspirin; W18.30XA Fall on same level, unspecified, initial encounter; Y92.129 Unspecified place in nursing home as the place of occurrence of the external cause
CPT/HCPCS: 71045; 72170; 73030; 73060; 93041